=== PATIENT | female | born 1980 | race Caucasian/White ===

== ENCOUNTER 2019-03-01 23:36 | Emergency (ER) | payer SELFPAY ==
[2019-03-01 23:45] VITALS: BP 127/86; PULSE 112; RESP 21; TEMP 37.5; O2SAT 98; BMI 45.7
[2019-03-02] MEDS: ALBUTEROL 2.5 MG/3 ML NEB (ADULT) INH (00:21)
[2019-03-02 00:22] VITALS: PULSE 87; RESP 18; O2SAT 99
--- NOTE | 2019-03-02 00:26 | ED_ITS ---
HPI - SOB/Dyspnea General Chief Complaint: Shortness of Breath/Dyspnea Stated Complaint: throat irritation/cough Time Seen by Provider: 03/02/19 00:03 Source: patient Mode of arrival: ambulatory Limitations: no limitations History of Present Illness Patient is a 38-year-old female presents with shortness of breath and coughing spells. She says that her last year which time she eats or drinks something she started coughing. It happens with water bread wheat thins noodles steak a eggs. Tonight she has had a worsening episode. Every time he takes a deep breath she coughs. She has no rash she does not feel like her throat is closing up. No tongue swelling. denies any fever or chills. MD Complaint: shortness of breath and cough Related Data Previous Rx's Medication Instructions Recorded omeprazole 20 mg PO DAILY #14 cap 03/02/19 Allergies Allergy/AdvReac Type Severity Reaction Status Date / Time levofloxacin [From LEVAQUIN] Allergy Unknown Unverified 03/02/18 12:25 Sulfa (Sulfonamide Allergy Unknown Unverified 03/02/18 12:25 Antibiotics) Review of Systems Review of Systems ROS Unobtainable: All systems reviewed & are unremarkable except as noted in HPI and below Constitutional Denies chills, Denies fever(s), Denies lethargy and Denies weakness Eyes Denies change in vision, Denies eye discharge, Denies irritation and Denies loss of vision ENT Ears, Nose, Mouth, and Throat: Denies change in voice, Denies neck pain and Denies sore throat Cardiovascular Denies chest pain, Denies irregular heart rhythm, Denies lightheadedness, Denies palpitations and Denies orthopnea Respiratory Reports chest congestion, Reports cough, Denies excessive phlegm production and Denies pain on inspiration Gastrointestinal Gastrointestinal: Denies abdominal pain, Denies change in bowel habits, Denies diarrhea, Denies nausea and Denies vomiting Genitourinary Denies hematuria, Denies flank pain, Denies urinary incontinence and Denies urinary urgency Musculoskeletal Denies neck pain Integumentary/Breasts Denies pruritus, Denies erythema, Denies rash and Denies wounds Neurologic Denies confusion, Denies loss of vision and Denies weakness Psychiatric Denies anxiety, Denies confusion, Denies depression, Denies homicidal ideation and Denies suicidal ideation Endocrine Denies palpitations [facility] Medical History Asthma (Acute) Surgical History Hx of tubal ligation (Acute) Family History Mother Age: 58 Diabetes mellitus Sister Age: 38 Abnormal thyroid function test Social History Smoking Status: Never smoker Family History Mother Age: 58 Diabetes mellitus Sister Age: 38 Abnormal thyroid function test Social History Smoking Status: Never smoker Exam Initial Vital Signs Initial Vital Signs: Vital Signs Temperature 99.5 F 03/01/19 23:45 Pulse Rate 112 H 03/01/19 23:45 Respiratory Rate 21 03/01/19 23:45 Blood Pressure 127/86 03/01/19 23:45 Pulse Oximetry 98 03/01/19 23:45 GENERAL: Alert overweight female no acute distress HEENT: Head atraumatic,EOMI, pupils reactive, CARDIOVASCULAR: Regular rate and rhythm without murmurs, rubs or gallops. RESPIRATORY: Breath sounds equal bilaterally, no wheezes rales or rhonchi. Coughing with deep breath. coughing while speaking ABDOMEN: Soft, nontender. Normoactive bowel sounds all 4 quadrants. No guarding or rebound. EXTREMITIES: Normal range of motion, no clubbing or edema. Neurovascularly intact NEUROLOGICAL: Alert and oriented x4.Normal gait and speech. SKIN: Warm, dry, no laceration, no petechiae, no rashes or lesions. Course Orders Ordered: Discontinued Medications Albuterol (Ventolin) 2.5 mg INH NOW ONE Stop: 03/02/19 00:21 Last Admin: 03/02/19 00:21 Dose: 2.5 mg Albuterol (Ventolin Hfa Prepack) 1 box MISC SEEINSTR ONE Stop: 03/02/19 00:40 Last Admin: 03/02/19 00:41 Dose: 1 box Vital Signs - 8 hr 03/01/19 23:45 03/02/19 00:22 03/02/19 01:53 Temperature 99.5 F Pulse Rate 112 H 87 84 Respiratory Rate 21 18 14 Blood Pressure 127/86 138/82 Pulse Oximetry 98 99 96 MDM - SOB/Dyspnea MDM Narrative Medical decision making narrative: Patient's coughing improved significantly with albuterol. She was given a spacer an inhaler. Her symptoms have been ongoing for about a year she has had a swallow study done. Happens with foods and liquids. She actually seems to have reactive airway disease. Recommended outpatient follow-up. Also possible acid reflux. will give omeprazole Discharge Plan Departure Patient Disposition: Home Clinical Impression: Chronic cough Discharge Date/Time: 03/02/19 01:55 Interventions: ED Discharge Assessment Last Done: 03/02/19 01:53 Instructions: DI for Cough -- Adult Activity Restrictions/Additional Instructions: *You have been diagnosed with chronic cough *What to do: At this time I recommend allergy testing, continue to work with [facility] PCP in regards to further work up *Continue to take medications as directed Albuterol 1-2 puffs every 4 hours if needed for coughing or shortness of breath Omeprazole 20 mg once a day 30 minutes before dinnertime or before bed *Follow up with your primary care provider in 2-3 days *Return to ER if you should have increasing shortness of breath, coughing not improve or any new, worsening or concerning symptoms Prescriptions: New omeprazole 20 mg capsule,delayed release(DR/EC) 20 mg PO DAILY Qty: 14 RF: 0 Referrals[facility] [Provider Group] [facility] [Provider Group] [facility] [Provider Group] Jonh Giordano MD [Primary Care Provider] -
[2019-03-02] MEDS: ALBUTEROL HFA PREPACK 1 BOX MISC (00:41)
[2019-03-02 01:53] VITALS: BP 138/82; PULSE 84; RESP 14; O2SAT 96
== END 2019-03-02 01:55 | disposition home or self-care (01) ==
PROVIDERS: Emergency Provider Emergency Medicine; PCP Family Medicine
DX: R05 Cough (principal); R06.02 Shortness of breath
CPT/HCPCS: 94150; 94640; 99282; 99283; J7613

== ENCOUNTER 2019-04-12 21:25 | Emergency (ER) | payer SELFPAY ==
[2019-04-12 21:31] VITALS: BP 130/76; PULSE 103; RESP 15; TEMP 37; O2SAT 97; BMI 44.8
== END 2019-04-12 22:22 | disposition left against medical advice (07) ==
PROVIDERS: Emergency Provider Emergency Medicine; PCP Family Medicine
DX: Z53.21 Procedure and treatment not carried out due to patient leaving prior to being seen by health care provider (principal)
CPT/HCPCS: 99282

== ENCOUNTER 2019-06-17 09:30 | Emergency (ER) | payer SELFPAY ==
[2019-06-17 10:30] VITALS: BP 142/78; PULSE 112; RESP 16; TEMP 36.4; O2SAT 99
[2019-06-17] MEDS: TET,DIPH,PERTUSS(ACELL),VAC/PF 0.5 ML SYRINGE IM (10:34)
--- NOTE | 2019-06-17 11:06 | ED.WOUNDLAC ---
HPI - Wound/Laceration <CORNELIA Dsouza - Last Filed: 06/17/19 21:54> General Chief Complaint: Wound/Laceration Stated Complaint: CUT LEFT ARM ON GLASS Time Seen by Provider: 06/17/19 11:08 Source: patient and family Mode of arrival: ambulatory Limitations: no limitations History of Present Illness HPI narrative: This is a 38 yo female, nonsmoker, who presents with family member with laceration to the medial aspect of right lower arm that she sustained from broken glass window at around 9:00 a.m. today. She tried to get her 's attention by pounding on window and that broke. She is unsure of last tetanus immunization. There is no active bleeding and she had put direct pressure for the last hour or so. She reports mild numbness to right hand, she denies foreign body sensation unaffected side. Her dominant hand is right. 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 Related Data Previous Rx's Medication Instructions Recorded omeprazole 20 mg PO DAILY #14 cap 03/02/19 Allergies Allergy/AdvReac Type Severity Reaction Status Date / Time levofloxacin [From LEVAQUIN] Allergy Unknown Verified 04/12/19 21:31 Sulfa (Sulfonamide Allergy Unknown Verified 04/12/19 21:31 Antibiotics) Review of Systems <CORNELIA Dsouza Last Filed: 06/17/19 21:54> Review of Systems General: Denies fever, chills, fatigue, malaise, sweats. HEENT: Denies sinus pain, ear pain, sore throat, difficulty swallowing, dizziness. Respiratory: Denies dyspnea, cough, wheezing, hemoptysis, sputum. Cardiovascular: Denies chest pain, palpitations, orthopnea, edema. Gastrointestinal: Denies nausea, vomiting, abdominal pain, diarrhea, constipation, melena. : Denies dysuria, frequency, incontinence, hematuria, urinary retention. Musculoskeletal: Denies weakness, joint pain or bony pain. Skin: See HPI Neurologic: Mild numbness to R hand. Denies weakness, headache, change in speech, confusion, seizures, incoordination. Psychiatric: No concerning psychosocial issues. 12-point review of systems is negative except for those stated above. PFSH <CORNELIA Dsouza - Last Filed: 06/17/19 21:54> Medical History (Updated 06/17/19 @ 12:05 by CORNELIA Dsouza) Asthma (Acute) Surgical History (Updated 06/17/19 @ 21:40 by CORNELIA Dsouza) Hx of tubal ligation (Acute) History of (Chronic) Family History Mother Age: 58 Diabetes mellitus Sister Age: 38 Abnormal thyroid function test Social History Smoking Status: Never smoker Family History Mother Age: 58 Diabetes mellitus Sister Age: 38 Abnormal thyroid function test Social History Smoking Status: Never smoker Exam <CORNELIA Dsouza - Last Filed: 06/17/19 21:54> Narrative Exam Narrative: GEN: Alert, oriented x 3, well appearing and nourished, and in no acute distress. Head: Normal cephalic, atraumatic. No scalp or temporal tenderness, palpable mass or rash. EYES: Pupils are equal, round, and reactive to light and accommodation. Extraocular muscles are intact bilaterally. There is no subconjunctival hemorrhage, exudate and sclera non-icteric. ENT: Nose without bleeding, purulent discharge, septal hematoma or deviation. Mucous membrane moist, no mucosal lesion. Airway patent. Neck: Trachea in midline. No JVD, non-tender without lymphadenopathy. No masses or thyroid megaly. Supple, non-tender and meningeal signs. CARDIAC: No peripheral edema, cyanosis or pallor. Capillary refill is less than 2 seconds. No carotid bruits. RESPIRATORY: No cough, wheezes, rales, or rhonchi. No stridor, respiratory distress, increase work of breathing, or accessary muscle used. ABD: Abdomen soft, nontender and non-distended. EXT: Full painless ROM of all extremities with no loss of sensation, strength, effusion or edema. SKIN: 3 cm linear laceration to medial lower R arm. Warm, dry, normal color for patient. No erythema, lesions or rash. BACK: Nontender without deformity or crepitance. No flank tenderness. NEUROLOGICAL: Alert and oriented to place, time and person. Sensation and motor function intact bilaterally. No facial droops, dysphasia. PSYCHIATRIC: Good judgement and reason, without hallucinations, abnormal affect or abnormal behaviors during the examination. Patient is not suicidal. Initial Vital Signs Initial Vital Signs: Vital Signs Temperature 97.6 F 06/17/19 10:30 Pulse Rate 112 H 06/17/19 10:30 Respiratory Rate 16 06/17/19 10:30 Blood Pressure 142/78 H 06/17/19 10:30 Pulse Oximetry 99 06/17/19 10:30 <Denae Baltazar DO - Last Filed: 06/22/19 07:50> Initial Vital Signs Initial Vital Signs: Vital Signs Temperature 97.6 F 06/17/19 10:30 Pulse Rate 112 H 06/17/19 10:30 Respiratory Rate 16 06/17/19 10:30 Blood Pressure 142/78 H 06/17/19 10:30 Pulse Oximetry 99 06/17/19 10:30 Procedures <CORNELIA Dsouza - Last Filed: 06/17/19 21:54> Laceration Repair Laceration 1: Site: upper extremity (medial lower arm) Side (If applicable): right Size (cm): 3 Description: linear Depth: simple, single layer Local Anesthetic: lidocaine 1% and with bicarb Amount of anesthesia used (mL): 4 Pre-repair: wound explored and irrigated extensively Skin layer closed with: nylon Size (cm): 5-0 Number of sutures: 8 Technique: simple, interrupted Course <CORNELIA Dsouza - Last Filed: 06/17/19 21:54> Orders Ordered: Discontinued Medications Diphtheria/Tetanus/Acell Pertussis (Adacel) 0.5 ml IM .ONCE ONE Stop: 06/17/19 10:28 Last Admin: 06/17/19 10:34 Dose: 0.5 ml Vital Signs - 8 hr 06/17/19 10:30 Temperature 97.6 F Pulse Rate 112 H Respiratory Rate 16 Blood Pressure 142/78 H Pulse Oximetry 99 <Denae Baltazar DO - Last Filed: 06/22/19 07:50> Orders Ordered: Discontinued Medications Diphtheria/Tetanus/Acell Pertussis (Adacel) 0.5 ml IM .ONCE ONE Stop: 06/17/19 10:28 Last Admin: 06/17/19 10:34 Dose: 0.5 ml Vital Signs - 8 hr 06/17/19 10:30 Temperature 97.6 F Pulse Rate 112 H Respiratory Rate 16 Blood Pressure 142/78 H Pulse Oximetry 99 [facility] - Wound/Laceration <Burt CORNELIA Alvarado - Last Filed: 06/17/19 21:54> Differential Diagnosis Differential diagnosis: Likely laceration Medical Records Attestation: I reviewed the patient's medical records. [facility] Narrative Medical decision making narrative: This is a 38-year-old female with 3 cm laceration on right medial lower arm. No foreign body was seen or felt during exam and patient did not report foreign body sensation. X-ray was deferred and patient agrees with the plan. The laceration has been irrigated with copious amount of normal saline after locally anesthetized with buffered lidocaine 1% without epi. The laceration has been repaired with 8 interrupted simple suture with nylons 5.0. The patient tolerated the procedure well. The laceration repair site was dressed by nursing staff. Wound care and signs and symptoms for infection were discussed with patient. Suture removal within 7 days. Patient advised to return to ED if any worsening or concerning symptoms and signs and symptoms for infection. Patient family agree with the plan of care and treatment. No further questions were expressed by patient or family member. Tetanus immunization has been updated. Discharge Plan Departure Patient Disposition: Home Clinical Impression: Laceration Discharge Date/Time: 06/17/19 12:24 Interventions: ED Discharge Assessment Last Done: 06/17/19 12:33 Instructions: DI for Laceration Repair Activity Restrictions/Additional Instructions: Please keep your wound clean and dry for the next 24 hours. after 24 hours, you could remove the dressing and wash with soap and water gentle, patch dry with clean paper towel. Please continue with wound care with [id number] antibiotic ointment and cover with Band-Aid. please do not soak her wound in the bathtub, dirty water, ocean and etc. please watch for signs and symptoms for infection such as increasing warmth and redness, pus like discharge, severe pain. if these occur please return to ER for re-evaluation. here suture should be removed in 7 days. follow-up with your primary care doctor for wound recheck as needed and suture removal. please return to ER with any difficulty breathing chest pain thanking like symptoms or any other concerns. Prescriptions: No Action omeprazole 20 mg capsule,delayed release(DR/EC) 20 mg PO DAILY Qty: 14 RF: 0 Referrals: [facility] [Outside] Jonh Giordano MD [Primary Care Provider] - <Denae Baltazar DO - Last Filed: 06/22/19 07:50> Cosign ED Attending Ferature Attestation: I was immediately available in the department for consultation. Documentation has been reviewed. I agree with assessment and plan.
--- NOTE | 2019-06-17 11:10 | PC.NURSE ---
pt states, fell unto broken glass, occured approx 930 am. obtained laceration right forearm, denies other injuries.
[2019-06-17 12:06] VITALS: BP 115/82; PULSE 71; RESP 16; O2SAT 97
--- NOTE | 2019-06-17 12:06 | PC.NURSE ---
bacitracin ointment applied , with non adherent drsg with kerlix. +distal cms intact.
== END 2019-06-17 12:24 | disposition home or self-care (01) ==
PROVIDERS: Emergency Provider Nurse Practitioner Family; PCP Family Medicine
DX: S51.812A Laceration without foreign body of left forearm, initial encounter (principal); W25.XXXA Contact with sharp glass, initial encounter
CPT/HCPCS: 12002; 90471; 99283; 90715

== ENCOUNTER 2019-12-22 00:16 | Emergency (ER) | payer SELFPAY ==
[2019-12-22 00:28] VITALS: BP 138/85; PULSE 81; RESP 16; TEMP 36.9; O2SAT 98; BMI 43.9
[2019-12-22] MEDS: PROPARACAINE 0.5% OPHTH SOL 1 DROPS EYE-LEFT (00:34)
[2019-12-22] MEDS: FLUORESCEIN 1 MG STRIP EYE-BOTH (00:38)
--- NOTE | 2019-12-22 01:26 | ED.EYEPROB ---
HPI - Eye Problem General Chief complaint: Eye Problems Stated complaint: rubbing right eye and it swelled up Time Seen by Provider: 12/22/19 01:26 Source: patient Mode of arrival: Family Vehicle Limitations: no limitations History of Present Illness HPI Narrative: This is a 39-year-old female comes in with complaint of irritation to both eyes and tearing. Patient states her left eye started swelling in the last 12-24 hours. Patient states no decreased vision. She has not had any other discharge other than tearing. She states feels irritated but not painful. No pain with movement. No fevers. No redness. Patient has not had any prior eye issues, she does not wear contacts or glasses. No prior eye surgery. She has not been involved in any activities that would suspicious for foreign body. She has had some mild runny nose but no cold cough or congestion. No fevers. 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 She denies any other current medical issues. Denies any allergies to medications besides sulfa. Related Data Previous Rx's Medication Instructions Recorded omeprazole 20 mg PO DAILY #14 cap 03/02/19 Allergies Allergy/AdvReac Type Severity Reaction Status Date / Time levofloxacin [From LEVAQUIN] Allergy Unknown Verified 04/12/19 21:31 Sulfa (Sulfonamide Allergy Unknown Verified 04/12/19 21:31 Antibiotics) Review of Systems Review of Systems ROS Unobtainable: All systems reviewed & are unremarkable except as noted in HPI and below Patient History Medical History Asthma (Acute) Surgical History History of (Chronic) Hx of tubal ligation (Acute) Social History Smoking Status: Never smoker Smoking Status: Never smoker alcohol intake frequency: holidays/special occasions only Substance Use Type: does not use Exam Narrative Exam Narrative: GEN: well nourished, well appearing female, alert and oriented x 3, patient appears to be in mild distress. HEENT: Atraumatic, pupils are equal round reactive to light, extraocular movements are intact, nares are clear, TMs are clear with no fluid, there is no conjunctival pallor. Throat is clear without any exudates, erythema, tonsillar enlargement or uvular deviation Visual acuity: See chart. General: no globe trauma Eyelids: normal inspection right, on left patient has swelling of the upper eyelid and slightly into the periorbital, no erythema extending, and slight swelling of the lower lid, eyelids everted for exam on right. Conjunctiva/Sclera: Conjunctiva and sclera slightly injected bilat Corneas: normal inspection on right, examined with fluroscein on left. With no uptake over the cornea, patient has some punctate uptake over the sclera throughout. No lacerations noted. EOM: intact, no palsy/entrapment Pupils: PERRL, normal accomadation, pupil normal Anterior Chambers: normal inspection, no hypema Posterior: normal fundoscopic on bilaterally HEART: Regular rate and rhythm without murmur, clicks, rubs. No carotid bruits, pulses are equal in upper and lower extremities LUNGS:Lungs clear to auscultation, no wheezes, rales, crackles, chest moves symmetrically ABD:bowel sounds normal, soft, non-tender, no guarding, rebound, rigidity, no masses noted, no hepatosplenomegaly MSCL: Non-tender, no muscle atrophy, muscles strength 5/5 upper and lower extremities, full range of motion, normal gait NEURO:CN 2-12 intact, sensation normal Initial Vital Signs Initial Vital Signs: Vital Signs Temperature 98.4 F 12/22/19 00:28 Pulse Rate 81 12/22/19 00:28 Respiratory Rate 16 12/22/19 00:28 Blood Pressure 138/85 12/22/19 00:28 Pulse Oximetry 98 12/22/19 00:28 Course Orders Ordered: Discontinued Medications Fluorescein Sodium (Ful-Fatmata) 1 mg EYE-BOTH NOW ONE Stop: 12/22/19 00:36 Last Admin: 12/22/19 00:38 Dose: 1 mg Documented by: HGUBERN Ibuprofen (Advil) 800 mg PO NOW ONE Stop: 12/22/19 01:47 Last Admin: 12/22/19 02:03 Dose: 800 mg Documented by: MMCFARL Polymyxin/Trimethoprim Sulfate (Polytrim Prepack) 1 bottle MISC SEEINSTR ONE Stop: 12/22/19 01:48 Last Admin: 01/31/20 02:04 Dose: 1 bottle Documented by: MMCFARL Proparacaine HCl (Parcaine 0.5% Ophth Angelica) 1 drops EYE-LEFT NOW ONE Stop: 12/22/19 00:28 Last Admin: 12/22/19 00:34 Dose: 1 drop Documented by: CHAU Vital Signs Vital signs: Vital Signs - 8 hr 12/22/19 00:28 12/22/19 02:10 Temperature 98.4 F Pulse Rate 81 79 Respiratory Rate 16 16 Blood Pressure 138/85 131/83 Pulse Oximetry 98 98 MDM - Eye Problem MDM Narrative Medical decision making narrative: Visual acuity is 20/40 in the left eye. On exam she has some scleral uptake but that is punctate or consistent with infection. No signs of foreign body, no corneal abrasions or lacerations. Patient was started on antibiotic drops. Asked to return for re-evaluation if she is not improving in 24 hours to call follow-up with Ophthalmology today. Patient was given a dose of ibuprofen in the department started on polymyxin/trimethoprim eyedrops with a prepack. Discharge Plan Departure Patient Disposition: Home Clinical Impression: Conjunctivitis Qualifiers: Conjunctivitis type: acute Discharge Date/Time: 12/22/19 02:10 Instructions: DI for Conjunctivitis Activity Restrictions/Additional Instructions: Follow-up with ophthalmology tomorrow if you are not having any improvement of your symptoms over the next 24 hours. He can call 1st thing in the morning for an appointment. You may take ibuprofen and/or Tylenol as needed for pain. You may take up to 600 mg of ibuprofen every 6 hours and or 1000 mg of Tylenol every 8 hours as needed. You may use ice or cool compresses to the affected eye 4 times daily Use 1 drop to the affected eye every 3 hours while awake for at least 4 times daily total, continue for 7 days. Return to the ER for fevers greater 100.4 F, rapidly worsening swelling, redness, pain within the eye itself, decreased vision severe headaches, persistent vomiting or other new or concerning symptoms. Prescriptions: No Action omeprazole 20 mg capsule,delayed release(DR/EC) 20 mg PO DAILY Qty: 14 RF: 0 Referrals: Collins Rene MD [Physician] -
[2019-12-22] MEDS: IBUPROFEN 400 MG TABLET 800 MG PO (02:03)
[2019-12-22] MEDS: POLYMY B/TRIMETH OPHTH PREPACK 1 BOTTLE MISC (02:04)
[2019-12-22 02:10] VITALS: BP 131/83; PULSE 79; RESP 16; O2SAT 98
== END 2019-12-22 02:10 | disposition home or self-care (01) ==
PROVIDERS: Emergency Provider Emergency Medicine
DX: H10.33 Unspecified acute conjunctivitis, bilateral (principal)
CPT/HCPCS: 99283

== ENCOUNTER 2021-03-01 18:08 | Emergency (ER) | payer SELFPAY ==
[2021-03-01 18:26] VITALS: BP 137/91; PULSE 100; RESP 24; TEMP 37.3; O2SAT 100; BMI 39.3
--- NOTE | 2021-03-01 19:38 | PC.NURSE ---
1914 Patient name called in lobby, no answer.
--- NOTE | 2021-03-01 19:39 | PC.NURSE ---
Patient still not in lobby.
== END 2021-03-01 19:41 | disposition left against medical advice (07) ==
PROVIDERS: Emergency Provider Emergency Medicine
DX: R21 Rash and other nonspecific skin eruption (principal)
CPT/HCPCS: 99281

== ENCOUNTER 2021-12-04 16:02 | Emergency (ER) | payer OTHER, SELFPAY ==
[2021-12-04 16:11] VITALS: BP 135/77; PULSE 94; RESP 16; TEMP 37.1; O2SAT 100; BMI 42.9
[2021-12-04 16:34] LABS: COVID19 -Nasal RAPID POSITIVE (Negative)
--- NOTE | 2021-12-04 16:38 | ED_ITS ---
HPI - URI/Sore Throat <CORNELIA Suero - Last Filed: 12/04/21 17:21> General Chief Complaint: Upper Respiratory Symptoms Stated Complaint: Runny Nose, Exposure to COVID Time Seen by Provider: 12/04/21 16:38 History of Present Illness HPI Narrative: 41-year-old female presents to the emergency department for COVID testing with symptoms that include a runny nose, congestion, a cough, and fatigue. Patient denies having a fever, she denies shortness of breath, wheezing, difficulty breathing, chest pain, dizziness, nausea, vomiting or diarrhea. Patient has had recent exposures with family members who have tested positive for COVID. She endorses a history of asthma but denies any shortness of breath or wheezing like her asthma. Related Data Previous Rx's Medication Instructions Recorded omeprazole 20 mg capsule,delayed 20 mg PO DAILY #14 cap 03/02/19 release Allergies Allergy/AdvReac Type Severity Reaction Status Date / Time levofloxacin [From LEVAQUIN] Allergy Unknown Verified 03/01/21 18:29 Sulfa (Sulfonamide Allergy Unknown Verified 03/01/21 18:29 Antibiotics) Review of Systems <CORNELIA Suero - Last Filed: 12/04/21 17:21> Review of Systems Narrative: General: denies fever, chills, endorses fatigue Head/Neck: denies headache, neck pain Eyes: denies visual changes, eye pain Cardio: denies chest pain, palpitations Respiratory: denies shortness of breath, endorses having a mild nonproductive cough GI: denies abdominal pain, nausea, vomiting, or diarrhea : denies dysuria, hematuria MSK: denies joint pain, muscle weakness Skin: denies rash, itching Neuro: denies numbness, tingling Patient History <CORNELIA Suero - Last Filed: 12/04/21 17:21> Medical History Asthma Surgical History History of Hx of tubal ligation Family History Mother Age: 61 Diabetes mellitus Sister Age: 41 Abnormal thyroid function test Social History Smoking Status: Never smoker Smoking Status: Never smoker alcohol intake frequency: holidays/special occasions only Substance Use Type: does not use Exam <CORNELIA Suero - Last Filed: 12/04/21 17:21> Narrative Exam Narrative: Independently reviewed vitals signs and nursing notes. General: Awake, alert, nontoxic, no cardiorespiratory distress, afebrile Head/Neck: Atraumatic, neck full range of motion Eyes: EOMI, conjunctiva normal Nose: nares patent, no rhinorrhea Mouth/Throat: moist mucus membranes, no oral lesions Cardio: Regular rate and rhythm, no peripheral edema Respiratory: respirations unlabored without wheezing, stridor, or rales. No retractions. GI: Abdomen soft, nontender, obese MSK: Moves all extremities, neurovascularly intact Skin: Normal capillary refill, no rash Neuro: Normal speech and cognition, normal gait Initial Vital Signs Initial Vital Signs: Vital Signs Temperature 98.7 F 12/04/21 16:11 Pulse Rate 94 H 12/04/21 16:11 Respiratory Rate 16 12/04/21 16:11 Blood Pressure 135/77 12/04/21 16:11 Pulse Oximetry 100 12/04/21 16:11 <Rosio Perez DO - Last Filed: 12/05/21 07:39> Initial Vital Signs Initial Vital Signs: Vital Signs Temperature 98.7 F 12/04/21 16:11 Pulse Rate 94 H 12/04/21 16:11 Respiratory Rate 16 12/04/21 16:11 Blood Pressure 135/77 12/04/21 16:11 Pulse Oximetry 100 12/04/21 16:11 Course <CORNELIA Suero - Last Filed: 12/04/21 17:21> Orders Ordered: ED Orders 12/04/21 16:13 COVID19 -Nasal swab/Pre-Proc Stat Vital Signs Vital signs: Vital Signs - 8 hr 12/04/21 16:11 Temperature 98.7 F Pulse Rate 94 H Respiratory Rate 16 Blood Pressure 135/77 Pulse Oximetry 100 <Rosio Perez DO - Last Filed: 12/05/21 07:39> Orders Ordered: ED Orders 12/04/21 16:13 COVID19 -Nasal swab/Pre-Proc Stat Vital Signs Vital signs: Vital Signs - 8 hr 12/04/21 16:11 Temperature 98.7 F Pulse Rate 94 H Respiratory Rate 16 Blood Pressure 135/77 Pulse Oximetry 100 MDM - URI/Sore Throat <CORNELIA Suero - Last Filed: 12/04/21 17:21> Lab Data Labs: Lab Results 12/04/21 Range/Units 16:13 SARS-CoV-2 (PCR) Positive H (Negative) MDM Narrative Medical decision making narrative: 41-year-old female presents to the emergency department for COVID testing with recent exposures and symptoms that include runny nose, cough, congestion, and fatigue. COVID (+) on day [3] of symptoms without hypoxia, respiratory distress, dehydration, or focal exam to suggest secondary bacterial infection. Discussed CDC guidelines for quarantine, mask wearing, physical distancing, and infection prevention measures such as frequent handwashing. Discussed supportive treatments: Tylenol/Motrin as needed for pain/fever. OTC decongestant medicat ions and/or antihistamines for symptomatic relief. Maintain adequate fluid intake. Follow-up with PCP as directed. Return to clinic/ER instructions discussed for new, not improving, or worsening symptoms. All questions answered. <Rosio Perez DO - Last Filed: 12/05/21 07:39> Lab Data Labs: Lab Results 12/04/21 Range/Units 16:13 SARS-CoV-2 (PCR) Positive H (Negative) Discharge Plan Departure Patient Disposition: Home Clinical Impression: COVID-19 Instructions: DI for COVID-19 (Suspected or Confirmed ) Activity Restrictions/Additional Instructions: *You have tested positive for COVID 19. Please quarantine for 5 days or as long as you have a fever, Wear a mask thereafter. Please try and avoid other people while you still have symptoms because this is very contagious. You may use [id number] decongestants like Sudafed for relief, Mucinex for productive cough, Benadryl for runny nose at night, ibuprofen or Tylenol as needed for fever. Please try and stay hydrated. If you are having difficulty breathing please return to the emergency department. Hope you feel better soon. *What to do: *Please continue to take your regular medications as directed. [ ] New medication prescriptions sent to your pharmacy: [ ] [ ] New medication written as a paper prescription [x ] No new medications given *Please follow up with your primary care provider in 2-3 days, call for an appointment. Let them know you were seen in the Emergency Department and that we ask that you be seen in follow up. We will electronically transmit a record of today's note if your PCP is in our system *If you do not have a primary care provider please contact the [facility] Resource line at [phone]. They will ask some questions about your medical history and help get you set up with a doctor in the community. *Return to Emergency Department if you should have any new, worsening or concerning symptoms, such as [fever greater than 101F, chills, worsening pain, persistent vomiting or other bothersome symptoms] Prescriptions: No Action omeprazole 20 mg capsule,delayed release(DR/EC) 20 mg PO DAILY Qty: 14 0RF <Rosio Perez DO - Last Filed: 12/05/21 07:39> Cosyenni ED Attending Ferature Attestation: I was immediately available in the department for consultation. Documentation has been reviewed.
== END 2021-12-04 17:23 | disposition home or self-care (01) ==
PROVIDERS: Emergency Medicine; Emergency Provider Nurse Practitioner Critical Care Medicine
DX: U07.1 COVID-19 (principal)
CPT/HCPCS: 87635; 99281; C9803

== ENCOUNTER 2021-12-30 13:48 | Emergency (ER) | payer SELFPAY ==
[2021-12-30 14:06] VITALS: BP 130/80; PULSE 103; RESP 20; TEMP 36.8; O2SAT 99; BMI 43.0
== END 2021-12-30 15:10 | disposition left against medical advice (07) ==
PROVIDERS: Emergency Provider Emergency Medicine
DX: J02.9 Acute pharyngitis, unspecified (principal)
CPT/HCPCS: 99281

== ENCOUNTER 2022-01-02 10:09 | Emergency (ER) | payer OTHER, SELFPAY ==
[2022-01-02 10:20] VITALS: BP 140/85; PULSE 98; RESP 15; TEMP 36.7; O2SAT 99
--- NOTE | 2022-01-02 12:30 | DI.RAD.S_ITS ---
PROCEDURE: XR CHEST 1V INDICATIONS: Cough TECHNIQUE: One view of the chest was acquired. COMPARISON: None. FINDINGS: Surgical changes and devices: None. Lungs and pleura: Lungs are clear. No pleural effusions or pneumothorax. Mediastinum: Mediastinal contours appear normal. Heart size is normal. Bones and chest wall: No suspicious bony lesions. Overlying soft tissues appear unremarkable. IMPRESSION: No acute cardiopulmonary disease process. Dictated by: Eliza Harris MD, PhD on 01/02/2022 at 12:53 Approved by: Eliza Harris MD, PhD on 01/02/2022 at 12:53
--- NOTE | 2022-01-02 12:42 | ED.URI ---
HPI - URI/Sore Throat <Clark Malloy PA-C - Last Filed: 01/02/22 20:05> General Chief Complaint: Upper Respiratory Symptoms Stated Complaint: scratchy thoat/airway cutting out Time Seen by Provider: 01/02/22 12:00 Source: patient Mode of arrival: Ambulatory History of Present Illness HPI Narrative: Patient is a 41-year-old female with history of asthma presenting to the emergency department today for an evaluation cough and throat irritation. Patient states she tested positive for COVID-19 on 12/04/2021 but has since stents did negative. She states that she went through a 2 week quarantine period. She states that since tested positive for COVID she has experienced a reactive cough and occasional intermittent chest pain with cough. Additionally, she reports a ?scratchy sensation? in her throat. She presents today complaining of continuing throat irritation and the sensation that her ?throat is closing up?. She states that she has a history asthma and is concerned that she may be experiencing an exacerbation. Patient denies fever, chills, shortness of breath, nausea, vomiting, diarrhea, abdominal pain, dysuria, hematuria, diaphoresis, syncope, changes in vision, or any other concerning symptoms. No further concerns reports at this time. Related Data Previous Rx's Medication Instructions Recorded omeprazole 20 mg capsule,delayed 20 mg PO DAILY #14 cap 03/02/19 release prednisone 20 mg tablet 40 mg PO DAILY #8 tab 01/02/22 Allergies Allergy/AdvReac Type Severity Reaction Status Date / Time levofloxacin [From LEVAQUIN] Allergy Unknown Verified 01/02/22 10:29 Sulfa (Sulfonamide Allergy Unknown Verified 01/02/22 10:29 Antibiotics) Review of Systems <Clark Malloy PA-C - Last Filed: 01/02/22 20:05> Constitutional Constitutional: Denies chills, Denies fatigue, Denies fever(s), Denies frequent falls, Denies lethargy and Denies weakness Eyes Eyes: Denies loss of vision ENT Ears, Nose, Mouth, and Throat: Denies change in voice, Denies dizziness, Denies neck pain, Denies throat swelling and Reports other (Scratchy throughout) Cardiovascular Cardiovascular: Denies chest pain, Denies irregular heart rhythm, Denies lightheadedness, Denies palpitations, Denies dyspnea, Denies dyspnea on exertion and Denies orthopnea Respiratory Respiratory: Reports cough, Denies dyspnea, Denies dyspnea on exertion, Denies wheezing and Reports other (Chest pain with cough) Gastrointestinal Gastrointestinal: Denies abdominal pain, Denies change in bowel habits, Denies diarrhea, Denies nausea and Denies vomiting Genitourinary Genitourinary: Denies hematuria, Denies flank pain, Denies urinary incontinence and Denies urinary urgency Musculoskeletal Musculoskeletal: Denies back pain, Denies muscle weakness, Denies neck pain, Denies numbness and Denies tingling Integumentary/Breasts Skin/Breast: Denies pruritus, Denies erythema, Denies rash and Denies wounds Neurologic Neurologic: Denies behavioral changes, Denies confusion, Denies dizziness, Denies frequent falls, Denies loss of vision, Denies numbness, Denies tingling and Denies weakness Psychiatric Psychiatric: Denies behavioral changes and Denies confusion Endocrine Endocrine: Denies fatigue and Denies palpitations Allergic/Immunologic Allergic/Immunologic: Denies throat swelling and Denies wheezing Patient History <Clark Malloy PA-C - Last Filed: 01/02/22 20:05> Medical History (Updated 01/02/22 @ 13:20 by Clark Malloy PA-C) Asthma Surgical History History of Hx of tubal ligation Family History Mother Age: 61 Diabetes mellitus Sister Age: 41 Abnormal thyroid function test Social History Smoking Status: Never smoker Smoking Status: Never smoker alcohol intake frequency: holidays/special occasions only Substance Use Type: does not use Exam <Clark Malloy PA-C - Last Filed: 01/02/22 20:05> Narrative Exam Narrative: GENERAL: 41 year old patient appears stated age. Well-developed patient, in no acute distress. HEAD: Atraumatic. Normocephalic. EYES: Pupils equal round and reactive. Extraocular motions intact. No scleral icterus. No injection or drainage. ENT: Nose without bleeding, purulent drainage. Throat without erythema, tonsillar hypertrophy or exudate. Airway patent. No excessive pharyngeal swelling or erythema. Uvula midline. No evidence of abscess formation. Mallampati 2. NECK: Trachea midline. Non tender CARDIOVASCULAR: Regular rate and rhythm without murmurs, gallops, or rubs. RESPIRATORY: Clear to auscultation. Breath sounds equal bilaterally. No wheezes, rales, or rhonchi. Actively coughing on exam GASTROINTESTINAL: Abdomen soft, non-tender, nondistended. EXTREMITIES: No edema or joint tenderness. BACK: Nontender without deformity or crepitance. No flank tenderness. NEURO: AOx3. SKIN: No rash or erythema of visible areas Initial Vital Signs Initial Vital Signs: Vital Signs Temperature 98.1 F 01/02/22 10:20 Pulse Rate 98 H 01/02/22 10:20 Respiratory Rate 15 01/02/22 10:20 Blood Pressure 140/85 01/02/22 10:20 Pulse Oximetry 99 01/02/22 10:20 <Denae Baltazar DO - Last Filed: 01/03/22 06:58> Initial Vital Signs Initial Vital Signs: Vital Signs Temperature 98.1 F 01/02/22 10:20 Pulse Rate 98 H 01/02/22 10:20 Respiratory Rate 15 01/02/22 10:20 Blood Pressure 140/85 01/02/22 10:20 Pulse Oximetry 99 01/02/22 10:20 Course <Clark Malloy PA-C - Last Filed: 01/02/22 20:05> Course Course Narrative: Chest x-ray obtained. Albuterol 2 puffs, 40 mg p.o. prednisone, 100 mg Robitussin administered. Patient provided albuterol inhaler to go home with. Patient notified of chest x-ray results and informed that no acute abnormality was identified. Orders Ordered: Discontinued Medications Albuterol (Albuterol Hfa Prepack) 1 box MISC NOW ONE Stop: 01/02/22 13:16 Last Admin: 01/02/22 13:14 Dose: 1 box Documented by: MIREYA Guaifenesin (Guaifenesin Solution 100 Mg/5 Ml Udc) 100 mg PO NOW ONE Stop: 01/02/22 12:31 Last Admin: 01/02/22 12:58 Dose: 100 mg Documented by: MIREYA Prednisone (Prednisone 20 Mg Tablet) 40 mg PO NOW ONE Stop: 01/02/22 12:31 Last Admin: 01/02/22 12:57 Dose: 40 mg Documented by: MIREYA Vital Signs Vital signs: Vital Signs - 8 hr 01/02/22 13:20 Pulse Oximetry 96 <Denae Baltazar DO - Last Filed: 01/03/22 06:58> Orders Ordered: Discontinued Medications Albuterol (Albuterol Hfa Prepack) 1 box MISC NOW ONE Stop: 01/02/22 13:16 Last Admin: 01/02/22 13:14 Dose: 1 box Documented by: MIREYA Guaifenesin (Guaifenesin Solution 100 Mg/5 Ml Udc) 100 mg PO NOW ONE Stop: 01/02/22 12:31 Last Admin: 01/02/22 12:58 Dose: 100 mg Documented by: MIREYA Prednisone (Prednisone 20 Mg Tablet) 40 mg PO NOW ONE Stop: 01/02/22 12:31 Last Admin: 01/02/22 12:57 Dose: 40 mg Documented by: MIREYA Vital Signs Vital signs: Vital Signs - 8 hr 01/02/22 13:20 Pulse Oximetry 96 MDM - URI/Sore Throat <Clark Malloy PA-C - Last Filed: 01/02/22 20:05> MDM Narrative Medical decision making narrative: To consider asthma exacerbation versus viral upper respiratory infection versus pneumonia versus atelectasis versus viral pharyngitis versus strep pharyngitis. Overall, physical examination and x-ray imaging obtained in the emergency department today were reassuring. Discussed x-ray results with patient informed her that no acute abnormality was identified. Patient states she feels comfortable being discharged home at this time now that she has received an albuterol inhaler. Strict return precautions were discussed with the patient prior to discharge. I urged the patient to follow up with primary care for further evaluation and management of her asthma. Patient expresses understanding and agrees to plan. Discharge Plan Departure Patient Disposition: Home Clinical Impression: Asthma exacerbation, Pharyngitis Instructions: DI for Asthma -- Adult Activity Restrictions/Additional Instructions: *You have been diagnosed with asthma exacerbation, pharyngitis *What to do: *Please continue to take your regular medications as directed. [X] New medication prescriptions sent to your pharmacy: [facility] - Prednisone [ ] New medication written as a paper prescription [ ] No new medications given Chest x-ray performed in the emergency department today did not show signs of acute abnormality. Please use the inhaler provided to you in the emergency department today as needed. I have prescribed a short course of steroids to her preferred pharmacy, please take these medications daily for the next 4 days. There due to establish primary care as soon as possible so that he can have consistent management of your asthma. Please do not hesitate to return to the emergency department if you experience worsening shortness of breath, cough, throat swelling, or any other concerning symptoms. *Please follow up with your primary care provider in 2-3 days, call for an appointment. Let them know you were seen in the Emergency Department and that we ask that you be seen in follow up. We will electronically transmit a record of today's note if your PCP is in our system *If you do not have a primary care provider please contact the [facility] Resource line at [phone]. They will ask some questions about your medical history and help get you set up with a doctor in the community. *Return to Emergency Department if you should have any new, worsening or concerning symptoms, such as fever greater than 101 F, shaking chills, worsening pain, persistent vomiting or other bothersome symptoms. Prescriptions: New prednisone 20 mg tablet 40 mg PO DAILY Qty: 8 0RF No Action omeprazole 20 mg capsule,delayed release(DR/EC) 20 mg PO DAILY Qty: 14 0RF <Denae Baltazar, - Last Filed: 01/03/22 06:58> Cosyenni ED Attending Georgie Attestation: I was immediately available in the department for consultation. Documentation has been reviewed. I agree with assessment and plan.
[2022-01-02] MEDS: predniSONE 20 MG TABLET 40 MG PO (12:57)
[2022-01-02] MEDS: guaiFENesin Solution 100 MG/5 ML UDC PO (12:58)
[2022-01-02] MEDS: ALBUTEROL HFA PREPACK 1 BOX MISC (13:14)
[2022-01-02 13:20] VITALS: O2SAT 96
== END 2022-01-02 13:45 | disposition home or self-care (01) ==
PROVIDERS: Emergency Provider Physician Assistant
DX: J45.901 Unspecified asthma with (acute) exacerbation (principal); J02.9 Acute pharyngitis, unspecified; Z86.16 Personal history of COVID-19
CPT/HCPCS: 71045; 99283; A9270

== ENCOUNTER 2022-01-30 16:06 | Emergency (ER) | payer SELFPAY ==
[2022-01-30 16:31] VITALS: BP 133/90; PULSE 100; RESP 18; TEMP 36.6; O2SAT 99; BMI 44.8
--- NOTE | 2022-01-30 16:44 | ED.SOB ---
HPI - SOB/Dyspnea <Tommie Bo PA-C - Last Filed: 01/30/22 17:28> General Chief Complaint: Upper Respiratory Symptoms Stated Complaint: COUGH SOB Time Seen by Provider: 01/30/22 16:44 Source: patient Mode of arrival: Ambulatory History of Present Illness HPI Narrative: This is a 41-year-old female presents to the emergency department due to a few week history a ?sore throat? with a productive cough. Patient states she was recently seen in the emergency department given an albuterol inhaler as well as a short dose of prednisone without significant relief of her symptoms. Patient is primarily concerned of a sore throat and mucous production this feels like her throat. Denies any fevers, nausea, vomiting, chest pain, or any other concerning signs or symptoms. Related Data Previous Rx's Medication Instructions Recorded omeprazole 20 mg capsule,delayed 20 mg PO DAILY #14 cap 03/02/19 release penicillin V potassium 500 mg 500 mg PO TID 10 Days #30 tab 01/30/22 tablet Allergies Allergy/AdvReac Type Severity Reaction Status Date / Time levofloxacin [From LEVAQUIN] Allergy Unknown Verified 01/02/22 10:29 Sulfa (Sulfonamide Allergy Unknown Verified 01/02/22 10:29 Antibiotics) Review of Systems <Tommie Bo PA-C - Last Filed: 01/30/22 17:28> Review of Systems Narrative: See HPI. Patient History <Tommie Bo PA-C - Last Filed: 01/30/22 17:28> Medical History (Updated 01/30/22 @ 17:09 by Tommie Bo PA-C) Asthma Surgical History History of Hx of tubal ligation Family History Mother Age: 61 Diabetes mellitus Sister Age: 41 Abnormal thyroid function test Social History Smoking Status: Never smoker Smoking Status: Never smoker alcohol intake frequency: holidays/special occasions only Substance Use Type: does not use Exam <Tommie Bo PA-C - Last Filed: 01/30/22 17:28> Narrative Exam Narrative: GENERAL: Well-developed patient, in no acute distress. HEAD: Atraumatic. Normocephalic. EYES: Pupils equal round and reactive. Extraocular motions intact. No scleral icterus. No injection or drainage. ENT: Erythematous posterior oropharynx with tonsillar exudate on the left tonsil. Uvula is midline. NECK: Trachea midline. Non tender CARDIOVASCULAR: Regular rate and rhythm without murmurs, gallops, or rubs. RESPIRATORY: Clear to auscultation. Breath sounds equal bilaterally. No wheezes, rales, or rhonchi. Actively coughing on exam GASTROINTESTINAL: Abdomen soft, non-tender, nondistended. EXTREMITIES: No edema or joint tenderness. BACK: Nontender without deformity or crepitance. No flank tenderness. NEURO: AOx3. SKIN: No rash or erythema of visible areas Initial Vital Signs Initial Vital Signs: Vital Signs Temperature 98 F 01/30/22 16:31 Pulse Rate 100 H 01/30/22 16:31 Respiratory Rate 18 01/30/22 16:31 Blood Pressure 133/90 01/30/22 16:31 Pulse Oximetry 99 01/30/22 16:31 <DO Jasbir Stephens Last Filed: 02/02/22 15:48> Initial Vital Signs Initial Vital Signs: Vital Signs Temperature 98 F 01/30/22 16:31 Pulse Rate 100 H 01/30/22 16:31 Respiratory Rate 18 01/30/22 16:31 Blood Pressure 133/90 01/30/22 16:31 Pulse Oximetry 99 01/30/22 16:31 Course <YULISSA Abreu Last Filed: 01/30/22 17:28> Vital Signs Vital signs: Vital Signs - 8 hr 01/30/22 16:31 01/30/22 17:26 Temperature 98 F 98.2 F Pulse Rate 100 H 94 H Respiratory Rate 18 24 Blood Pressure 133/90 138/90 Pulse Oximetry 99 99 <DO Jasbir Stephens Last Filed: 02/02/22 15:48> Vital Signs Vital signs: Vital Signs - 8 hr 01/30/22 16:31 01/30/22 17:26 Temperature 98 F 98.2 F Pulse Rate 100 H 94 H Respiratory Rate 18 24 Blood Pressure 133/90 138/90 Pulse Oximetry 99 99 MDM - SOB/Dyspnea <YULISSA Abreu Last Filed: 01/30/22 17:28> MDM Narrative Medical decision making narrative: This is a 41-year-old female presenting to the emergency department due to a continued sore throat. On exam patient presented with significant or pharyngeal erythema as well as exudate. Will treat empirically for bacterial pharyngitis. Lung exam was unremarkable low concern for pneumonia or asthma exacerbation. Discharge Plan Departure Patient Disposition: Home Clinical Impression: Acute pharyngitis Instructions: DI for Strep Throat Activity Restrictions/Additional Instructions: Thank you for coming into our emergency department your lungs sounded very good and not suspect any kind of pneumonia at this time. On exam throat did appear to have some kind of infection. We will treat empirically for strep throat. Please continue taking Mucinex to help with the mucus production. The antibiotic should help with your symptoms as well. I hope you feel better soon. Prescriptions: New penicillin V potassium 500 mg tablet 500 mg PO TID 10 Days Qty: 30 0RF No Action omeprazole 20 mg capsule,delayed release(DR/EC) 20 mg PO DAILY Qty: 14 0RF Stand Alone Forms: Work Release Note <Denae Baltazar DO - Last Filed: 02/02/22 15:48> Cosign ED Attending Cosignature Attestation: I was immediately available in the department for consultation. Documentation has been reviewed. I agree with assessment and plan.
[2022-01-30 17:26] VITALS: BP 138/90; PULSE 94; RESP 24; TEMP 36.8; O2SAT 99
== END 2022-01-30 17:27 | disposition home or self-care (01) ==
PROVIDERS: Emergency Provider Physician Assistant Medical
DX: J02.9 Acute pharyngitis, unspecified (principal); R05.9 Cough, unspecified
CPT/HCPCS: 99281

== ENCOUNTER 2022-04-25 16:59 | Emergency (ER) | payer OTHER, SELFPAY ==
[2022-04-25 17:13] VITALS: BP 122/83; PULSE 84; RESP 18; TEMP 36.6; O2SAT 98; BMI 42.0
--- NOTE | 2022-04-25 18:59 | ED.FALL ---
HPI - Fall General Chief Complaint: Fall Stated Complaint: FELL AT WORK SAFEWAY Time Seen by Provider: 04/25/22 18:59 Source: family Mode of arrival: Ambulatory History of Present Illness HPI Narrative: 41-year-old female nonsmoker with noncontributory medical history presents with a chief complaint of an accidental fall while at work yesterday. She states that she slipped on a wet floor and fell forward striking her chest on the ground. Denies any headache or neck pain. She denies any head injury, blurred vision or trouble with speech. She has anterior chest wall pain that she states is worse with a deep breath and improves with rest. She is not short of breath and denies any cough or bloody sputum. She has no nausea, vomiting or diarrhea. She denies any extremity pain or injury such as shoulders, elbows, wrists, hips, knees or ankles. Related Data Previous Rx's Medication Instructions Recorded omeprazole 20 mg capsule,delayed 20 mg PO DAILY #14 cap 03/02/19 release Allergies Allergy/AdvReac Type Severity Reaction Status Date / Time levofloxacin [From LEVAQUIN] Allergy Unknown Verified 03/06/22 08:12 Sulfa (Sulfonamide Allergy Unknown Verified 03/06/22 08:12 Antibiotics) Review of Systems Review of Systems Narrative: GENERAL: Denies chills, fatigue, malaise, fever, sweats. HEENT: Denies sinus pain, ear pain, sore throat, difficulty swallowing, dizziness. RESPIRATORY: See HPI. CARDIOVASCULAR: See HPI GASTROINTESTINAL: Denies nausea, vomiting, abdominal pain, diarrhea, constipation, melena. : Denies dysuria, frequency, incontinence, hematuria, urinary retention. MUSCULOSKELETAL: denies weakness, joint pain, or bony pain SKIN: Denies rash, skin lesions, or other NEUROLOGIC: Denies weakness, headache, numbness, change in speech, confusion, seizures, incoordination. PSYCHIATRIC: No concerning psychosocial issues. 12 point review of systems is negative except for those stated above Patient History Medical History (Updated 04/25/22 @ 20:05 by Danial Macedo DO) Asthma Surgical History History of Hx of tubal ligation Family History Mother Age: 61 Diabetes mellitus Sister Age: 41 Abnormal thyroid function test Social History Smoking Status: Never smoker Smoking Status: Never smoker alcohol intake frequency: holidays/special occasions only Substance Use Type: does not use Exam Narrative Exam Narrative: GENERAL: [41] year old patient appears stated age. Well-developed patient, in mild distress. GCS 15 HEAD: Atraumatic. Normocephalic. EYES: Pupils equal round and reactive. Extraocular motions intact. No scleral icterus. No injection or drainage. ENT: Nose without bleeding, purulent drainage. Throat without erythema, tonsillar hypertrophy or exudate. Airway patent. NECK: Trachea midline. Non tender CARDIOVASCULAR: Regular rate and rhythm without murmurs, gallops, or rubs. Anterior chest wall tender to palpation, no crepitance or obvious external manifestation of injury RESPIRATORY: Clear to auscultation. Breath sounds equal bilaterally. No wheezes, rales, or rhonchi. GASTROINTESTINAL: Abdomen soft, non-tender, nondistended. EXTREMITIES: No edema or joint tenderness. BACK: Nontender without deformity or crepitance. No flank tenderness. NEURO: AOx3. SKIN: No rash or erythema of visible areas Initial Vital Signs Initial Vital Signs: Vital Signs Temperature 97.8 F 04/25/22 17:13 Pulse Rate 84 04/25/22 17:13 Respiratory Rate 18 04/25/22 17:13 Blood Pressure 122/83 04/25/22 17:13 Pulse Oximetry 98 04/25/22 17:13 Course Orders Ordered: ED Orders 04/25/22 19:10 Chest [XR chest 2V] Stat Vital Signs Vital signs: Vital Signs - 8 hr 04/25/22 17:13 Temperature 97.8 F Pulse Rate 84 Respiratory Rate 18 Blood Pressure 122/83 Pulse Oximetry 98 MDM - Fall Imaging Data Chest x-ray: Radiologist's Impression: Launch?[address] [address] XRay Report Signed Patient: Minesh Olvera MR#: [id number] : 1980 Acct:[id number] Age/Sex: 41 / F Date of Service: 04/25/22 Loc: ED Accession Number: [id number] ?? Procedure: XR chest 2V Ordering Provider: Danial Macedo D.O. PROCEDURE:? XR CHEST 2V ? INDICATIONS:? fall with chest wall injury ? TECHNIQUE:? 2 views of the chest were acquired.? ? COMPARISON:? [facility], , CHEST 1 VIEW, 12/01/2014, 19:25.? [facility], [place], XR CHEST 1V, 01/02/2022, 12:33. ? FINDINGS:? ? Surgical changes and devices:? None.? ? Lungs and pleura:? Lungs are clear.? No pleural effusions or pneumothorax.? ? Mediastinum:? Mediastinal contours are normal.? Heart size is normal.? ? Bones and chest wall:? No suspicious bony abnormalities.? Soft tissues appear unremarkable.? ? IMPRESSION:? No acute cardiopulmonary disease process. ? ? Dictated by: Eliza Harris MD, PhD on 04/25/2022 at 19:54 ? ? Approved by: Eliza Harris MD, PhD on 04/25/2022 at 19:55 ? Discharge Plan Departure Patient Disposition: Home Clinical Impression: Chest wall contusion Instructions: How to Prevent Falls Activity Restrictions/Additional Instructions: *You have been diagnosed with [ground level fall with chest wall contusion *What to do: *Please continue to take your regular medications as directed. [ ] New medication prescriptions sent to your pharmacy: [ ] [ ] New medication written as a paper prescription [x ] No new medications given *Please follow up with your primary care provider in 2-3 days, call for an appointment. Let them know you were seen in the Emergency Department and that we ask that you be seen in follow up. We will electronically transmit a record of today's note if your PCP is in our system *If you do not have a primary care provider please contact the [facility] Resource line at [phone]. They will ask some questions about your medical history and help get you set up with a doctor in the community. *Return to Emergency Department if you should have any new, worsening or concerning symptoms Prescriptions: No Action omeprazole 20 mg capsule,delayed release(DR/EC) 20 mg PO DAILY Qty: 14 0RF Stand Alone Forms: Work Release Note
--- NOTE | 2022-04-25 19:10 | DI.RAD.S_ITS ---
PROCEDURE: XR CHEST 2V INDICATIONS: fall with chest wall injury TECHNIQUE: 2 views of the chest were acquired. COMPARISON: [facility], [place], CHEST 1 VIEW, 12/01/2014, 19:25. [facility], [place], XR CHEST 1V, 01/02/2022, 12:33. FINDINGS: Surgical changes and devices: None. Lungs and pleura: Lungs are clear. No pleural effusions or pneumothorax. Mediastinum: Mediastinal contours are normal. Heart size is normal. Bones and chest wall: No suspicious bony abnormalities. Soft tissues appear unremarkable. IMPRESSION: No acute cardiopulmonary disease process. Dictated by: Eliza Harris MD, PhD on 04/25/2022 at 19:54 Approved by: Eliza Harris MD, PhD on 04/25/2022 at 19:55
[2022-04-25 20:23] VITALS: BP 113/79; PULSE 77; RESP 19; O2SAT 100
== END 2022-04-25 20:25 | disposition home or self-care (01) ==
PROVIDERS: Emergency Provider Emergency Medicine
DX: S20.219A Contusion of unspecified front wall of thorax, initial encounter (principal); W01.0XXA Fall on same level from slipping, tripping and stumbling without subsequent striking against object, initial encounter; Y99.0 Civilian activity done for income or pay
CPT/HCPCS: 71046; 99281; 99282

== ENCOUNTER 2022-07-28 22:19 | Emergency (ER) | payer OTHER, SELFPAY ==
[2022-07-28 22:29] VITALS: BP 130/79; PULSE 90; RESP 18; TEMP 36.6; O2SAT 99; BMI 43.9
== END 2022-07-28 23:31 | disposition left against medical advice (07) ==
PROVIDERS: Emergency Provider Emergency Medicine
CPT/HCPCS: 99281

== ENCOUNTER → 2022-08-14 09:27 | Outpatient (CLI) | payer OTHER, SELFPAY | PROVIDERS: Visit Provider Nurse Practitioner Family | DX: J02.9 Acute pharyngitis, unspecified (principal) | CPT/HCPCS: 87070 ==

== ENCOUNTER 2022-11-20 17:11 | Emergency (ER) | payer OTHER, SELFPAY ==
[2022-11-20 17:18] VITALS: BP 110/74; PULSE 114; RESP 22; TEMP 37.7; O2SAT 98; BMI 43.9
[2022-11-20] MEDS: ACETAMINOPHEN 325 MG TABLET 975 MG PO (17:25)
[2022-11-20 18:06] LABS: COVID-19 CEPHEID 4-PLEX PCR Negative (Negative); Influenza A - CEPHEID Flu A POSITIVE (NEGATIVE); Influenza B - CEPHEID Flu B NEGATIVE (NEGATIVE); Respiratory Syncytial Virus Negative (Negative)
[2022-11-20 19:24] VITALS: BP 107/61; PULSE 97; RESP 20; TEMP 36.7; O2SAT 96
[2022-11-20 19:25] VITALS: TEMP 36.7
[2022-11-20] MEDS: ALBUTEROL HFA PREPACK 1 BOX MISC (19:36)
[2022-11-20] MEDS: DEXAMETHASONE 10 MG/ML VIAL PO (19:36)
--- NOTE | 2022-11-20 19:37 | ED.URI ---
HPI - URI/Sore Throat <CORNELIA Suero - Last Filed: 11/20/22 19:43> General Chief Complaint: Upper Respiratory Symptoms Stated Complaint: Flu symptoms Time Seen by Provider: 11/20/22 19:31 Source: patient Mode of arrival: Ambulatory History of Present Illness HPI Narrative: This is a 42-year-old female who presents to the emergency department with chills, cough, congestion, states that she has flu-like symptoms. She has a history of asthma, presents with wheezing, shortness of breath, states that she is had these symptoms for about the last 3 days. She states that she vomited x1 yesterday. No significant nausea vomiting today. She has albuterol but has use it because she does not like it. Has a history of allergy to Levaquin and sulfa. Denies dysuria, urinary frequency or urgency, back pain, neck pain, has a mild headache and she received some Tylenol earlier for that. Has been seen in the emergency department for asthma exacerbations in the past. Related Data Previous Rx's Medication Instructions Recorded omeprazole 20 mg capsule,delayed 20 mg PO DAILY #14 caps 03/02/19 release ibuprofen 800 mg tablet 800 mg PO Q8H PRN pain #30 tabs 07/29/22 albuterol sulfate 90 mcg/actuation 1 inh inhalation Q4-6H PRN 11/20/22 breath activated powder inhaler shortness of breath or wheezing #1 ea ondansetron 4 mg disintegrating 4 mg PO Q8H PRN nausea and 11/20/22 tablet vomiting #10 tabs prednisone 20 mg tablet 20 mg PO DAILY #4 tabs 11/20/22 Allergies Allergy/AdvReac Type Severity Reaction Status Date / Time levofloxacin [From LEVAQUIN] Allergy Unknown Verified 07/29/22 16:11 Sulfa (Sulfonamide Allergy Unknown Hives Verified 11/20/22 17:18 Antibiotics) Review of Systems <CORNELIA Suero - Last Filed: 11/20/22 19:43> Review of Systems ROS Unobtainable: All systems reviewed & are unremarkable except as noted in HPI and below Patient History <CORNELIA Suero - Last Filed: 11/20/22 19:43> Medical History Asthma Surgical History History of Hx of tubal ligation Family History Mother Age: 62 Diabetes mellitus Sister Age: 42 Abnormal thyroid function test Social History Smoking Status: Never smoker Smoking Status: Never smoker alcohol intake frequency: holidays/special occasions only Substance Use Type: does not use Exam <CORNELIA Suero - Last Filed: 11/20/22 19:43> Narrative Exam Narrative: Reviewed vitals signs and nursing notes. General: cooperative, comfortable, in no acute distress, well groomed HEENT: symmetrical facial expressions, moist mucous membranes, mild congestion Cardiovascular: Initially tachycardic, this has improved, regular rate and rhythm, no peripheral edema, warm extremities Respiratory: normal effort, able to speak in complete sentences, expiratory wheezes heard in middle/lower lobes bilaterally without diminished breath sounds, crackles, rhonchi, stridor, increased work of breathing but she is tachypneic. MDI spacer training and albuterol inhaler improved her wheezing and symptoms on reexam, without hypoxia GI: abdomen soft, nontender to palpation, nondistended, without masses, rebound tenderness or exquisite tenderness with exam. No CVA tenderness MSK: moves all extremities, neurovascularly intact, no weakness, normal tone Skin: brisk capillary refill, without pallor or erythema Neuro: normal speech and cognition, A&O x3, ambulatory, clear speech Psych: mental status is grossly normal, congruent mood, normal affect, pleasant and cooperative Initial Vital Signs Initial Vital Signs: Vital Signs Temperature 100 F H 11/20/22 17:18 Pulse Rate 114 H 11/20/22 17:18 Respiratory Rate 22 11/20/22 17:18 Blood Pressure 110/74 11/20/22 17:18 Pulse Oximetry 98 11/20/22 17:18 Oxygen Delivery Method 11/20/22 17:18 <Danial Macedo DO - Last Filed: 11/24/22 10:56> Initial Vital Signs Initial Vital Signs: Vital Signs Temperature 100 F H 11/20/22 17:18 Pulse Rate 114 H 11/20/22 17:18 Respiratory Rate 22 11/20/22 17:18 Blood Pressure 110/74 11/20/22 17:18 Pulse Oximetry 98 11/20/22 17:18 Oxygen Delivery Method 11/20/22 17:18 Course <CORNELIA Suero - Last Filed: 11/20/22 19:43> Orders Ordered: Discontinued Medications Acetaminophen (Acetaminophen 325 Mg Tablet) 975 mg PO NOW ONE Stop: 11/20/22 17:23 Last Admin: 11/20/22 17:25 Dose: 975 mg Documented By: SHANNON Albuterol (Albuterol Hfa Prepack) 1 box [facility] SEEINSTR ONE Stop: 11/20/22 19:32 Last Admin: 11/20/22 19:36 Dose: 1 box Documented By: SUNNY Dexamethasone (Dexamethasone 10 Mg/Ml Vial) 10 mg PO NOW ONE Stop: 11/20/22 19:32 Last Admin: 11/20/22 19:36 Dose: 10 mg Documented By: SUNNY Vital Signs Vital signs: Vital Signs - 8 hr 11/20/22 17:18 11/20/22 19:24 11/20/22 19:25 Temperature 100 F H 98.1 F 98.1 F Pulse Rate 114 H 97 H Respiratory Rate 22 20 Blood Pressure 110/74 107/61 Pulse Oximetry 98 96 Oxygen Delivery Method Room Air Room Air <Danial Macedo DO - Last Filed: 11/24/22 10:56> Orders Ordered: Discontinued Medications Acetaminophen (Acetaminophen 325 Mg Tablet) 975 mg PO NOW ONE Stop: 11/20/22 17:23 Last Admin: 11/20/22 17:25 Dose: 975 mg Documented By: SHANNON Albuterol (Albuterol Hfa Prepack) 1 box [facility] SEEINSTR ONE Stop: 11/20/22 19:32 Last Admin: 11/20/22 19:36 Dose: 1 box Documented By: SUNNY Dexamethasone (Dexamethasone 10 Mg/Ml Vial) 10 mg PO NOW ONE Stop: 11/20/22 19:32 Last Admin: 11/20/22 19:36 Dose: 10 mg Documented By: SUNNY Vital Signs Vital signs: Vital Signs - 8 hr 11/20/22 17:18 11/20/22 19:24 11/20/22 19:25 Temperature 100 F H 98.1 F 98.1 F Pulse Rate 114 H 97 H Respiratory Rate 22 20 Blood Pressure 110/74 107/61 Pulse Oximetry 98 96 Oxygen Delivery Method Room Air Room Air MDM - URI/Sore Throat <CORNELIA Suero - Last Filed: 11/20/22 19:43> Lab Data Labs: Lab Results 11/20/22 Range/Units 17:21 SARS-CoV-2 (PCR) Negative (Negative) Influenza A (RT-PCR) Flu a positive H (NEGATIVE) Influenza B (RT-PCR) Flu b negative (NEGATIVE) RSV (PCR) Negative (Negative) MDM Narrative Medical decision making narrative: This is a 42-year-old female presents emergency department today with concern for flu-like symptoms for the last 3 days, episode of vomiting times yesterday, cough, congestion with expiratory wheezes bilaterally in her middle and lower lobes. Respiratory panel is positive for influenza A. MDI spacer training and albuterol MDI with improved symptoms afterwards, patient is given Decadron. Asthma exacerbation without evidence of hypoxia, respiratory distress, dehydration, or focal exam to suggest secondary bacterial infection. - Prednisone prescribed today. Use albuterol with spacer up to to every 4-6 hours as needed for shortness of breath/wheezing. - Discussed supportive treatments: Tylenol/Motrin as needed for pain/fever. OTC antihistamines for symptomatic relief. Maintain adequate fluid intake. - Follow-up with PCP as directed. Return to clinic/ER instructions discussed for new, not improving, or worsening symptoms. All questions answered. <Danial Macedo DO - Last Filed: 11/24/22 10:56> Lab Data Labs: Lab Results 11/20/22 Range/Units 17:21 SARS-CoV-2 (PCR) Negative (Negative) Influenza A (RT-PCR) Flu a positive H (NEGATIVE) Influenza B (RT-PCR) Flu b negative (NEGATIVE) RSV (PCR) Negative (Negative) Discharge Plan Departure Patient Disposition: Home Clinical Impression: Influenza A, History of asthma Instructions: Asthma -- Adult, DI for Influenza -- Adult Activity Restrictions/Additional Instructions: *You have been diagnosed with influenza A, and have wheezing currently. Please use your albuterol inhaler every 4 hours as needed for shortness of breath, wheezing, I am sorry that you do not like it but use the spacer and it should bother use much. Please take the prednisone for the next 4 days, do not take any today since he received steroids here in the emergency department. If you have worsening shortness of breath, please come back to the emergency department. Stay hydrated, take Tylenol and ibuprofen for your pain, chills, other discomfort. Please use Zofran as needed for nausea. Thank you for your patience today, I hope you feel better soon. *What to do: *Please continue to take your regular medications as directed. [x ] New medication prescriptions sent to your pharmacy: [[facility] ] [ ] New medication written as a paper prescription [ ] No new medications given *Please follow up with your primary care provider in 2-3 days, call for an appointment. Let them know you were seen in the Emergency Department and that we asked that you be seen for follow-up. We will electronically transmit a record of today's note if your PCP is in our system *If you do not have a primary care provider please contact [phone] to establish care with one of [facility] primary care providers. *Return to Emergency Department if you should have any new, worsening, or concerning symptoms, such as [fever greater than 101F, chills, worsening pain, persistent vomiting or other bothersome symptoms]. Prescriptions: New albuterol sulfate 90 mcg/actuation aerosol powdr breath activated 1 inh inhalation Q4-6H PRN (Reason: shortness of breath or wheezing) Qty: 1 3RF prednisone 20 mg tablet 20 mg PO DAILY Qty: 4 0RF ondansetron 4 mg tablet,disintegrating 4 mg PO Q8H PRN (Reason: nausea and vomiting) Qty: 10 0RF No Action ibuprofen 800 mg tablet 800 mg PO Q8H PRN (Reason: pain) Qty: 30 0RF omeprazole 20 mg capsule,delayed release(DR/EC) 20 mg PO DAILY Qty: 14 0RF Referrals: Miscellaneous,Doctor, MD [Primary Care Provider] - Stand Alone Forms: Work Release Note <Danial Macedo DO - Last Filed: 11/24/22 10:56> Cosign ED Attending Ferature Attestation: I was immediately available in the department for consultation. This documentation has been reviewed and I agree with assessment and plan. Supervised by Danial Macedo DO
== END 2022-11-20 19:45 | disposition home or self-care (01) ==
PROVIDERS: Emergency Medicine; Emergency Provider Nurse Practitioner Critical Care Medicine
DX: J10.1 Influenza due to other identified influenza virus with other respiratory manifestations (principal); R11.10 Vomiting, unspecified; Z20.822 Contact with and (suspected) exposure to COVID-19; Z87.09 Personal history of other diseases of the respiratory system
CPT/HCPCS: 0241U; 99283; J1100

== ENCOUNTER 2022-11-25 18:20 | Emergency (ER) | payer OTHER, SELFPAY ==
[2022-11-25 18:56] VITALS: BP 119/74; PULSE 95; RESP 18; TEMP 36.6; O2SAT 96; BMI 43.9
== END 2022-11-25 22:05 | disposition left against medical advice (07) ==
PROVIDERS: Emergency Provider Emergency Medicine
CPT/HCPCS: 99281

== ENCOUNTER → 2022-12-04 16:09 | Outpatient (CLI) | payer OTHER, SELFPAY ==
[2022-12-04 18:27] LABS: Influenza A - CEPHEID Flu A NEGATIVE (NEGATIVE); Influenza B - CEPHEID Flu B NEGATIVE (NEGATIVE); Respiratory Syncytial Virus Negative (Negative)
[2022-12-04 18:51] LABS: COVID-19 CEPHEID 4-PLEX PCR POSITIVE (Negative)
== END ==
PROVIDERS: Visit Provider Student in an Organized Health Care Education/Training Program
DX: J02.9 Acute pharyngitis, unspecified (principal); U07.1 COVID-19; J06.9 Acute upper respiratory infection, unspecified; Z20.822 Contact with and (suspected) exposure to COVID-19
CPT/HCPCS: 0241U; 87070

== ENCOUNTER → 2022-12-09 16:41 | Outpatient (CLI) | payer OTHER, SELFPAY | PROVIDERS: Visit Provider Nurse Practitioner Family | DX: J02.9 Acute pharyngitis, unspecified (principal) | CPT/HCPCS: 87070; 87147 ==

== ENCOUNTER 2023-07-17 16:22 | Emergency (ER) | payer OTHER, SELFPAY ==
[2023-07-17 16:47] VITALS: BP 127/79; PULSE 102; RESP 18; TEMP 36.7; O2SAT 97; BMI 43.9
[2023-07-17 17:11] LABS: COVID19 -Nasal RAPID POSITIVE (Negative)
--- NOTE | 2023-07-17 18:04 | DI.RAD.S_ITS ---
PROCEDURE: XR CHEST 2V INDICATIONS: asthma, COVID TECHNIQUE: 2 views of the chest were acquired. COMPARISON: [facility], [place], XR CHEST 1V, 01/02/2022, 12:33. [facility], CR, XR CHEST 2V, 04/25/2022, 19:28. FINDINGS: Surgical changes and devices: None. Lungs and pleura: Mild generalized interstitial prominence can be seen. No focal infiltrates are seen. No pleural effusions or pneumothorax. Mediastinum: Mediastinal contours are normal. Heart size is normal. Bones and chest wall: No suspicious bony abnormalities. Soft tissues appear unremarkable. IMPRESSION: Mild generalized interstitial prominence can be seen, which can be related to asthma or atypical infection, which is consistent with the given history. No consolidated infiltrates can be seen. Dictated by: Daryl Amaya M.D. on 07/17/2023 at 17:39 Approved by: Daryl Amaya M.D. on 07/17/2023 at 17:40
[2023-07-17 18:29] VITALS: BP 115/80; PULSE 80; RESP 18; O2SAT 98
--- NOTE | 2023-07-18 11:01 | ED.URI ---
HPI - URI/Sore Throat <Cheyanne Gonzalez, [facility] - Last Filed: 07/18/23 11:12> General Chief Complaint: Upper Respiratory Symptoms Stated Complaint: Not feeling well Time Seen by Provider: 07/17/23 17:46 Source: patient Mode of arrival: Ambulatory History of Present Illness HPI Narrative: This is a 42-year-old female with history of asthma and elevated BMI who presents emergency department reporting that she has developed a sore throat, congestion, runny nose, complains of poor sleep and reports her symptoms have been ongoing for almost 2 weeks. 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 She thinks it could be COVID. She denies shortness of breath, wheezing, needing her albuterol more, she denies chest pain but feels tired, complains of the persistent congestion. Denies fever, endorses having chills, denies diarrhea or vomiting. Related Data Previous Rx's Medication Instructions Recorded omeprazole 20 mg capsule,delayed 20 mg PO DAILY #14 caps 03/02/19 release ibuprofen 800 mg tablet 800 mg PO Q8H PRN pain #30 tabs 07/29/22 albuterol sulfate 90 mcg/actuation 1 inh inhalation Q4-6H PRN 11/20/22 breath activated powder inhaler shortness of breath or wheezing #1 ea ondansetron 4 mg disintegrating 4 mg PO Q8H PRN nausea and 11/20/22 tablet vomiting #10 tabs prednisone 20 mg tablet 20 mg PO DAILY #4 tabs 11/20/22 benzonatate 100 mg capsule 100 mg PO TID PRN cough #21 caps 12/04/22 codeine 7.5 mg-guaifenesin 225 7.5 ml PO Q4-6H PRN cold symptoms, 12/04/22 mg/5 mL oral liquid cough #473 mL cetirizine 5 mg-pseudoephedrine ER 1 tab PO BID PRN nasal congestion 07/17/23 120 mg tablet,extended release,12hr #20 tabs fluticasone propionate 50 1 spray intranasal DAILY #16 grams 07/17/23 mcg/actuation nasal spray,suspension nirmatrelvir 300 mg (150 mg See Rx Instructions PO .COMPLEX 07/17/23 x2)-ritonavir 100 mg tablet,dose #30 ea pack (Paxlovid) Allergies Allergy/AdvReac Type Severity Reaction Status Date / Time Sulfa (Sulfonamide Allergy Unknown Hives Verified 07/17/23 16:47 Antibiotics) levofloxacin [From LEVAQUIN] AdvReac Unknown abdominal Verified 07/17/23 16:47 discomfort Review of Systems <CORNELIA Suero - Last Filed: 07/18/23 11:12> Review of Systems ROS Unobtainable: All systems reviewed & are unremarkable except as noted in HPI and below Patient History <CORNELIA Suero - Last Filed: 07/18/23 11:12> Medical History Asthma Surgical History History of Hx of tubal ligation Family History Mother Age: 62 Diabetes mellitus Sister Age: 42 Abnormal thyroid function test Social History Smoking Status: Never smoker Smoking Status: Never smoker alcohol intake frequency: holidays/special occasions only Substance Use Type: does not use Exam <CORNELIA Suero - Last Filed: 07/18/23 11:12> Narrative Exam Narrative: Reviewed vitals signs and nursing notes. General: Pleasant, sitting upright, in no acute distress, well groomed, afebrile HEENT: symmetrical facial expressions, moist mucous membranes, neck is supple, congestion present, no sinus tenderness to palpation, posterior pharynx without tonsillar exudate, uvula is midline, airway is widely patent without stridor CV: regular rate and rhythm, warm extremities Respiratory: normal work of breathing, without tachypnea or hypoxia. Breath sounds are clear throughout all casarez, patient has an occasional cough without rhonchi. GI: abdomen soft, nondistended, without CVA tenderness bilaterally. MSK: moves all extremities, no weakness, normal tone, ambulatory without deficit Skin: brisk capillary refill, without rash or wound Neuro: clear speech and normal cognition, A&O x3, GCS 15, no focal motor or sensation deficits Initial Vital Signs Initial Vital Signs: Vital Signs Temperature 98.1 F 07/17/23 16:47 Pulse Rate 102 H 07/17/23 16:47 Respiratory Rate 18 07/17/23 16:47 Blood Pressure 127/79 07/17/23 16:47 Pulse Oximetry 97 07/17/23 16:47 Oxygen Delivery Method Room Air 07/17/23 16:47 <Danial Macedo DO - Last Filed: 07/18/23 16:20> Initial Vital Signs Initial Vital Signs: Vital Signs Temperature 98.1 F 07/17/23 16:47 Pulse Rate 102 H 07/17/23 16:47 Respiratory Rate 18 07/17/23 16:47 Blood Pressure 127/79 07/17/23 16:47 Pulse Oximetry 97 07/17/23 16:47 Oxygen Delivery Method Room Air 07/17/23 16:47 MDM - URI/Sore Throat <CORNELIA Suero - Last Filed: 07/18/23 11:12> Lab Data Labs: Lab Results 07/17/23 Range/Units 16:51 SARS-CoV-2 (PCR) Positive H (Negative) Imaging Data Chest x-ray: Radiologist's Impression: [address] [address] XRay Report Signed Patient: Minesh Olvera MR#: [id number] : 1980 Acct:[id number] Age/Sex: 42 / F Date of Service: 07/17/23 Loc: ED Accession Number: [id number] ?? Procedure: XR chest 2V Ordering Provider: Cheyanne Gonzalez PROCEDURE:? XR CHEST 2V ? INDICATIONS:? asthma, COVID ? TECHNIQUE:? 2 views of the chest were acquired.? ? COMPARISON:? [facility], CR, XR CHEST 1V, 01/02/2022, 12:33.? [facility], CR, XR CHEST 2V, 04/25/2022, 19:28. ? FINDINGS:? ? Surgical changes and devices:? None.? ? Lungs and pleura:? Mild generalized interstitial prominence can be seen.? No focal infiltrates are seen. ? ? No pleural effusions or pneumothorax.? ? Mediastinum:? Mediastinal contours are normal.? Heart size is normal.? ? Bones and chest wall:? No suspicious bony abnormalities.? Soft tissues appear unremarkable.? IMPRESSION:? Mild generalized interstitial prominence can be seen, which can be related to asthma or atypical infection, which is consistent with the given history. ? No consolidated infiltrates can be seen. ? ? Dictated by: Daryl Amaya M.D. on 07/17/2023 at 17:39 ? ? Approved by: Daryl Amaya M.D. on 07/17/2023 at 17:40 ? MDM Narrative Medical decision making narrative: Chief Complaint: Congestion Multiple etiologies for patient's complaint considered including, but not limited to: Asthma exacerbation, acute viral illness including COVID, bronchitis, pneumonia, postnasal drip, I have independently reviewed the patient's vital signs and nursing notes as well as prior records if available. On exam patient has clear breath sounds throughout, without hypoxia or tachypnea, mild congestion and fatigue, we will obtain chest x-ray for history of asthma, obesity and COVID positive PCR. Chest x-ray shows mild generalized interstitial prominence. No focal consolidations. Patient reports that her symptoms truly started 4 days ago and she will be taking the next 5 days off of work. Given a work note, she is in no distress. Discussed starting Paxil of it if she has worsening, she does not take any contraindicated medications currently. She wishes to try supportive care and was prescribed Zyrtec D and Flonase, was also given a prescription of Paxlovid to start if she has worsening or shortness of breath starts. She understands to return to the emergency department if she develops severe symptoms, she states that they are fairly mild and she can tolerate them without the medication. She has normal renal function. Social considerations that may affect disposition: none Questions are addressed and there is agreement with the plan and for follow-up with PCP or ED. I consulted with the ED attending physician Dr. Macedo as needed for higher level of care considerations and they were available for discussion and recommendations regarding plan of care and diagnostic testing. Patient is appropriate for outpatient management. <Danial Macedo, DO - Last Filed: 07/18/23 16:20> Lab Data Labs: Lab Results 07/17/23 Range/Units 16:51 SARS-CoV-2 (PCR) Positive H (Negative) Discharge Plan Departure Patient Disposition: Home Clinical Impression: COVID-19, History of asthma Instructions: COVID-19 Activity Restrictions/Additional Instructions: *You have been diagnosed with Covid and since you have a history of asthma and the potential to get more ill I have prescribed for you Paxlovid which is for COVID illness to be started within 5 days of onset of symptoms to hopefully reduce the severity and length of the illness. If you have worsening of your symptoms in the next 2-3 days please start this medication. For COVID, please use Zyrtec D for congestion, best to be taken in the morning, please use Flonase for congestion and runny nose, it will help with postnasal drip and phlegm. For your sore throat, please use throat lozenges and drink tea with honey. Stay hydrated, take Tylenol and ibuprofen as needed for your pain. *What to do: *Please continue to take your regular medications as directed. [ x] New medication prescriptions sent to your pharmacy: [[facility] ] [ ] New medication written as a paper prescription [ ] No new medications given *Please call and schedule follow up with your primary care provider in 2-3 days, at least for an update. Let them know you were seen in the Emergency Department for the above problem. We will electronically transmit a record of today's note if your PCP or specialist is in our system. *If you do not have a primary care provider please contact [phone] to establish care with one of the [facility] primary care providers. *Return to the Emergency Department for worsening symptoms, inability to keep liquids down, fever greater than 101F, chills, or other concerning symptom. Prescriptions: New Paxlovid 300 mg (150 mg x 2)-100 mg tablets,dose pack See Rx Instructions .ROUTE .COMPLEX Qty: 30 0RF Rx Instructions: take TWO 150 mg tablets of nirmatrelvir with ONE 100 mg tablet of ritonavir twice daily for 5 days cetirizine-pseudoephedrine 5-120 mg tablet extended release 12 hr 1 tab PO BID PRN (Reason: nasal congestion) Qty: 20 0RF fluticasone propionate 50 mcg/actuation spray,suspension 1 spray intranasal DAILY Qty: 16 0RF Rx Instructions: administer into each nostril No Action ibuprofen 800 mg tablet 800 mg PO Q8H PRN (Reason: pain) Qty: 30 0RF benzonatate 100 mg capsule 100 mg PO TID PRN (Reason: cough) Qty: 21 1RF codeine-guaifenesin 7.5-225 mg/5 mL liquid 7.5 ml PO Q4-6H PRN (Reason: cold symptoms, cough) Qty: 473 0RF albuterol sulfate 90 mcg/actuation aerosol powdr breath activated 1 inh inhalation Q4-6H PRN (Reason: shortness of breath or wheezing) Qty: 1 3RF prednisone 20 mg tablet 20 mg PO DAILY Qty: 4 0RF ondansetron 4 mg tablet,disintegrating 4 mg PO Q8H PRN (Reason: nausea and vomiting) Qty: 10 0RF omeprazole 20 mg capsule,delayed release(DR/EC) 20 mg PO DAILY Qty: 14 0RF Referrals: Miscellaneous,Doctor, MD [Primary Care Provider] - Stand Alone Forms: Patient Portal/API, Work Release Note <Danial Macedo DO - Last Filed: 07/18/23 16:20> Cosign ED Attending Georgie Attestation: I was immediately available in the department for consultation. Documentation has been reviewed. I agree with assessment and plan.
== END 2023-07-17 18:31 | disposition home or self-care (01) ==
PROVIDERS: Emergency Medicine; Emergency Provider Nurse Practitioner Critical Care Medicine
DX: U07.1 COVID-19 (principal); J45.909 Unspecified asthma, uncomplicated
CPT/HCPCS: 71046; 87635; 99281; 99283; C9803

== ENCOUNTER 2023-07-21 19:57 | Emergency (ER) | payer OTHER, SELFPAY ==
[2023-07-21 20:05] VITALS: BP 117/80; PULSE 98; RESP 18; TEMP 36.2; O2SAT 99; BMI 43.9
[2023-07-21 20:30] LABS: COVID19 -Nasal RAPID Negative (Negative)
--- NOTE | 2023-07-21 21:03 | ED.RECABL ---
HPI - Recheck/Abnormal Lab/Rx General Chief Complaint: Recheck/Abnormal Lab/Rx Stated Complaint: wants tested for covid Time Seen by Provider: 07/21/23 21:02 Source: patient Mode of arrival: Ambulatory History of Present Illness HPI narrative: Patient is a 42-year-old female history of asthma presenting today wanting a COVID test. She was seen evaluated here in the 26 diagnosed with COVID she overall is feeling better but she needs a test to go back to work Related Data Previous Rx's Medication Instructions Recorded omeprazole 20 mg capsule,delayed 20 mg PO DAILY #14 caps 03/02/19 release ibuprofen 800 mg tablet 800 mg PO Q8H PRN pain #30 tabs 07/29/22 albuterol sulfate 90 mcg/actuation 1 inh inhalation Q4-6H PRN 11/20/22 breath activated powder inhaler shortness of breath or wheezing #1 ea ondansetron 4 mg disintegrating 4 mg PO Q8H PRN nausea and 11/20/22 tablet vomiting #10 tabs prednisone 20 mg tablet 20 mg PO DAILY #4 tabs 11/20/22 benzonatate 100 mg capsule 100 mg PO TID PRN cough #21 caps 12/04/22 codeine 7.5 mg-guaifenesin 225 7.5 ml PO Q4-6H PRN cold symptoms, 12/04/22 mg/5 mL oral liquid cough #473 mL cetirizine 5 mg-pseudoephedrine ER 1 tab PO BID PRN nasal congestion 07/17/23 120 mg tablet,extended release,12hr #20 tabs fluticasone propionate 50 1 spray intranasal DAILY #16 grams 07/17/23 mcg/actuation nasal spray,suspension nirmatrelvir 300 mg (150 mg See Rx Instructions PO .COMPLEX 07/17/23 x2)-ritonavir 100 mg tablet,dose #30 ea pack (Paxlovid) Allergies Allergy/AdvReac Type Severity Reaction Status Date / Time Sulfa (Sulfonamide Allergy Unknown Hives Verified 07/17/23 16:47 Antibiotics) levofloxacin [From LEVAQUIN] AdvReac Unknown abdominal Verified 07/17/23 16:47 discomfort Review of Systems Review of Systems ROS Unobtainable: All systems reviewed & are unremarkable except as noted in HPI and below Patient History Medical History (Updated 07/21/23 @ 21:08 by Denae Baltazar DO) Asthma Surgical History History of Hx of tubal ligation Family History Mother Age: 62 Diabetes mellitus Sister Age: 42 Abnormal thyroid function test Social History Smoking Status: Never smoker Smoking Status: Never smoker alcohol intake frequency: holidays/special occasions only Substance Use Type: does not use Exam Initial Vital Signs Initial Vital Signs: Vital Signs Temperature 97.2 F L 07/21/23 20:05 Pulse Rate 98 H 07/21/23 20:05 Respiratory Rate 18 07/21/23 20:05 Blood Pressure 117/80 07/21/23 20:05 Pulse Oximetry 99 07/21/23 20:05 Oxygen Delivery Method Room Air 07/21/23 20:05 GENERAL: Alert well-appearing 42-year-old female and in no acute distress. HEENT: Head atraumatic,EOMI, pupils reactive, face symmetric, moist mucous membranes CARDIOVASCULAR: Regular rate and rhythm without murmurs, rubs or gallops. RESPIRATORY: Breath sounds equal bilaterally, no wheezes rales or rhonchi. EXTREMITIES: Normal range of motion, no clubbing or edema. Neurovascularly intact NEUROLOGICAL: Alert and oriented x4. SKIN: Warm, dry, no laceration, no petechiae, no rashes or lesions. Course Orders Ordered: ED Orders 07/21/23 20:10 COVID19 -Nasal RAPID Stat Vital Signs Vital signs: Vital Signs - 8 hr 07/21/23 20:05 07/21/23 21:13 Temperature 97.2 F L Pulse Rate 98 H 90 Respiratory Rate 18 16 Blood Pressure 117/80 Pulse Oximetry 99 99 Oxygen Delivery Method Room Air Room Air MDM - Recheck/Abnormal Lab/Rx Lab Data Labs: Lab Results 07/21/23 Range/Units 20:10 SARS-CoV-2 (PCR) Negative (Negative) MDM Narrative Medical decision making narrative: Patient 42-year-old female wanting COVID test today fortunately it is negative her symptoms have improved. She needs a note for work copy of her test Discharge Plan Departure Patient Disposition: Home Clinical Impression: Feared complaint without diagnosis Activity Restrictions/Additional Instructions: *You have been diagnosed with COVID test today is negative *What to do: *Continue to take medications as directed *Follow up with your primary care provider in 2-3 days or call [phone] *Return to ER if you should have any new, worsening or concerning symptoms Prescriptions: No Action ibuprofen 800 mg tablet 800 mg PO Q8H PRN (Reason: pain) Qty: 30 0RF benzonatate 100 mg capsule 100 mg PO TID PRN (Reason: cough) Qty: 21 1RF codeine-guaifenesin 7.5-225 mg/5 mL liquid 7.5 ml PO Q4-6H PRN (Reason: cold symptoms, cough) Qty: 473 0RF albuterol sulfate 90 mcg/actuation aerosol powdr breath activated 1 inh inhalation Q4-6H PRN (Reason: shortness of breath or wheezing) Qty: 1 3RF prednisone 20 mg tablet 20 mg PO DAILY Qty: 4 0RF ondansetron 4 mg tablet,disintegrating 4 mg PO Q8H PRN (Reason: nausea and vomiting) Qty: 10 0RF omeprazole 20 mg capsule,delayed release(DR/EC) 20 mg PO DAILY Qty: 14 0RF Paxlovid 300 mg (150 mg x 2)-100 mg tablets,dose pack See Rx Instructions .ROUTE .COMPLEX Qty: 30 0RF Rx Instructions: take TWO 150 mg tablets of nirmatrelvir with ONE 100 mg tablet of ritonavir twice daily for 5 days cetirizine-pseudoephedrine 5-120 mg tablet extended release 12 hr 1 tab PO BID PRN (Reason: nasal congestion) Qty: 20 0RF fluticasone propionate 50 mcg/actuation spray,suspension 1 spray intranasal DAILY Qty: 16 0RF Rx Instructions: administer into each nostril Stand Alone Forms: Patient Portal/API, Work Release Note
[2023-07-21 21:13] VITALS: PULSE 90; RESP 16; O2SAT 99
== END 2023-07-21 21:14 | disposition home or self-care (01) ==
PROVIDERS: Emergency Provider Emergency Medicine
DX: Z71.1 Person with feared health complaint in whom no diagnosis is made (principal); Z20.822 Contact with and (suspected) exposure to COVID-19; Z86.16 Personal history of COVID-19
CPT/HCPCS: 87635; 99281; 99282; C9803

== ENCOUNTER 2023-10-08 09:01 | Emergency (ER) | payer OTHER, SELFPAY ==
[2023-10-08 09:05] VITALS: BP 125/83; PULSE 107; RESP 18; TEMP 36.4; O2SAT 97; BMI 43.9
--- NOTE | 2023-10-08 09:09 | ED.GENADULT ---
HPI - General Adult General Chief complaint: Upper Respiratory Symptoms Stated complaint: runny nose Time Seen by Provider: 10/08/23 09:05 Source: patient Mode of arrival: Ambulatory History of Present Illness HPI narrative: 43-year-old female. Has been immunized against COVID however has had 3 times previously. Is here for evaluation of couple days of runny nose and cough and congestion. No fevers. She is here for a COVID test. Related Data Previous Rx's Medication Instructions Recorded omeprazole 20 mg capsule,delayed 20 mg PO DAILY #14 caps 03/02/19 release ibuprofen 800 mg tablet 800 mg PO Q8H PRN pain #30 tabs 07/29/22 albuterol sulfate 90 mcg/actuation 1 inh inhalation Q4-6H PRN 11/20/22 breath activated powder inhaler shortness of breath or wheezing #1 ea ondansetron 4 mg disintegrating 4 mg PO Q8H PRN nausea and 11/20/22 tablet vomiting #10 tabs prednisone 20 mg tablet 20 mg PO DAILY #4 tabs 11/20/22 benzonatate 100 mg capsule 100 mg PO TID PRN cough #21 caps 12/04/22 codeine 7.5 mg-guaifenesin 225 7.5 ml PO Q4-6H PRN cold symptoms, 12/04/22 mg/5 mL oral liquid cough #473 mL cetirizine 5 mg-pseudoephedrine ER 1 tab PO BID PRN nasal congestion 07/17/23 120 mg tablet,extended release,12hr #20 tabs fluticasone propionate 50 1 spray intranasal DAILY #16 grams 07/17/23 mcg/actuation nasal spray,suspension nirmatrelvir 300 mg (150 mg See Rx Instructions PO .COMPLEX 07/17/23 x2)-ritonavir 100 mg tablet,dose #30 ea pack (Paxlovid) Allergies Allergy/AdvReac Type Severity Reaction Status Date / Time Sulfa (Sulfonamide Allergy Unknown Hives Verified 10/08/23 09:07 Antibiotics) levofloxacin [From LEVAQUIN] AdvReac Unknown abdominal Verified 10/08/23 09:07 discomfort Review of Systems Constitutional Constitutional: Reports system reviewed and no additional complaints, except as documented ENT Ears, Nose, Mouth, and Throat: Reports system reviewed and no additional complaints, except as documented Respiratory Respiratory: Reports system reviewed and no additional complaints, except as documented Patient History Medical History (Updated 10/08/23 @ 09:53 by Mykel Loyd DO) Asthma Surgical History History of Hx of tubal ligation Family History Mother Age: 63 Diabetes mellitus Sister Age: 43 Abnormal thyroid function test Social History Smoking Status: Never smoker Smoking Status: Never smoker alcohol intake frequency: holidays/special occasions only Substance Use Type: does not use Exam Initial Vital Signs Initial Vital Signs: Vital Signs Temperature 97.5 F L 10/08/23 09:05 Pulse Rate 107 H 10/08/23 09:05 Respiratory Rate 18 10/08/23 09:05 Blood Pressure 125/83 10/08/23 09:05 Pulse Oximetry 97 10/08/23 09:05 Oxygen Delivery Method Room Air 10/08/23 09:05 HENMT HENMT Other: Obvious sinus congestion Resp Effort & Inspection: normal respiratory effort Auscultation: clear to auscultation bilaterally Skin General: no rashes or lesions noted Course Orders Ordered: ED Orders 10/08/23 09:09 COVID19 -Nasal RAPID Stat Vital Signs Vital signs: Vital Signs - 8 hr 10/08/23 09:05 Temperature 97.5 F L Pulse Rate 107 H Respiratory Rate 18 Blood Pressure 125/83 Pulse Oximetry 97 Oxygen Delivery Method Room Air Medical Decision Making Lab Data Lab results reviewed: Yes I reviewed the patient's lab results. Labs: Lab Results 10/08/23 Range/Units 09:10 SARS-CoV-2 (PCR) Negative (Negative) MDM Narrative Medical decision making narrative: COVID is negative. Discussed the results of this with the patient. We discussed [id number] medications that she could try. She was given return precautions. Discharge Plan Departure Patient Disposition: Home Clinical Impression: Upper respiratory infection Instructions: DI for Viral Upper Respiratory Infection -- Adult Activity Restrictions/Additional Instructions: Continue to take all of your medications as directed. You can try [id number] cough and cold preparations like we discussed. Return to the emergency department for new symptoms. Prescriptions: No Action ibuprofen 800 mg tablet 800 mg PO Q8H PRN (Reason: pain) Qty: 30 0RF benzonatate 100 mg capsule 100 mg PO TID PRN (Reason: cough) Qty: 21 1RF codeine-guaifenesin 7.5-225 mg/5 mL liquid 7.5 ml PO Q4-6H PRN (Reason: cold symptoms, cough) Qty: 473 0RF albuterol sulfate 90 mcg/actuation aerosol powdr breath activated 1 inh inhalation Q4-6H PRN (Reason: shortness of breath or wheezing) Qty: 1 3RF prednisone 20 mg tablet 20 mg PO DAILY Qty: 4 0RF ondansetron 4 mg tablet,disintegrating 4 mg PO Q8H PRN (Reason: nausea and vomiting) Qty: 10 0RF omeprazole 20 mg capsule,delayed release(DR/EC) 20 mg PO DAILY Qty: 14 0RF Paxlovid 300 mg (150 mg x 2)-100 mg tablets,dose pack See Rx Instructions .ROUTE .COMPLEX Qty: 30 0RF Rx Instructions: take TWO 150 mg tablets of nirmatrelvir with ONE 100 mg tablet of ritonavir twice daily for 5 days cetirizine-pseudoephedrine 5-120 mg tablet extended release 12 hr 1 tab PO BID PRN (Reason: nasal congestion) Qty: 20 0RF fluticasone propionate 50 mcg/actuation spray,suspension 1 spray intranasal DAILY Qty: 16 0RF Rx Instructions: administer into each nostril Stand Alone Forms: Patient Portal/API
[2023-10-08 09:28] LABS: COVID19 -Nasal RAPID Negative (Negative)
== END 2023-10-08 09:55 | disposition home or self-care (01) ==
PROVIDERS: Emergency Provider Emergency Medicine
DX: J06.9 Acute upper respiratory infection, unspecified (principal); Z11.52 Encounter for screening for COVID-19
CPT/HCPCS: 87635; 99281; 99282; C9803

== ENCOUNTER → 2023-10-26 13:55 | Outpatient (CLI) | payer OTHER, SELFPAY ==
--- NOTE | 2023-10-26 13:56 | DI.RAD.S_ITS ---
PROCEDURE: XR CHEST 2V INDICATIONS: Cough x 1 week TECHNIQUE: 2 views of the chest were acquired. COMPARISON: [facility], CR, XR CHEST 2V, 07/17/2023, 18:11. FINDINGS: Surgical changes and devices: None. Lungs and pleura: Lungs are clear. No pleural effusions or pneumothorax. Mediastinum: Mediastinal contours are normal. Heart size is normal. Bones and chest wall: No suspicious bony abnormalities. Soft tissues appear unremarkable. IMPRESSION: No acute pulmonary process. Dictated by: Eula Cesar M.D. on 10/26/2023 at 16:26 Approved by: Eula Cesar M.D. on 10/26/2023 at 16:26
== END ==
PROVIDERS: Referring Provider Physician Assistant; Visit Provider Physician Assistant
DX: R05.9 Cough, unspecified (principal)
CPT/HCPCS: 71046

== ENCOUNTER → 2024-07-17 10:14 | Outpatient (CLI) | payer OTHER, SELFPAY | PROVIDERS: Visit Provider Nurse Practitioner Family | DX: N94.89 Other specified conditions associated with female genital organs and menstrual cycle (principal); R30.0 Dysuria; R35.0 Frequency of micturition | CPT/HCPCS: 87086; 87210 ==

== ENCOUNTER → 2024-07-17 11:59 | Outpatient (CLI) | payer OTHER, SELFPAY ==
[2024-07-17 15:37] LABS: Urine N gonorrhoeae NOT DETECTED
[2024-07-17 16:03] LABS: Urine Chlamydia NOT DETECTED
[2024-07-17 18:13] LABS: HIV 1 & 2 Ab/Ag 4th Gen Combo NEGATIVE (NEGATIVE); Hep C Virus Ab w/Reflex Quant NEGATIVE s/c (NEGATIVE); Hepatitis B Surface Antigen NEGATIVE s/c (NEGATIVE)
[2024-07-18 02:36] LABS: HSV 2 IGG AB < 0.91 index (0.00-0.90)
[2024-07-18 06:11] LABS: RPR Screen Non Reactive (Non Reactive)
== END ==
PROVIDERS: Referring Provider Nurse Practitioner Family; Visit Provider Nurse Practitioner Family
DX: R35.0 Frequency of micturition (principal)
CPT/HCPCS: 36415; 86592; 86695; 86696; 86803; 87086; 87210; 87340; 87389; 87491; 87591

== ENCOUNTER → 2025-05-03 18:45 | Outpatient (CLI) | payer OTHER, SELFPAY ==
[2025-05-03 20:00] LABS: Influenza A - CEPHEID Flu A NEGATIVE (NEGATIVE); Influenza B - CEPHEID Flu B NEGATIVE (NEGATIVE); Respiratory Syncytial Virus Negative (Negative)
[2025-05-03 20:03] LABS: COVID-19 CEPHEID 4-PLEX PCR Negative (Negative)
== END ==
PROVIDERS: Visit Provider Chiropractor
DX: J02.9 Acute pharyngitis, unspecified (principal); R05.1 Acute cough
CPT/HCPCS: 0241U; 87070

== ENCOUNTER 2025-05-14 19:05 | Emergency (ER) | payer OTHER, SELFPAY ==
[2025-05-14 19:32] VITALS: BP 124/60; PULSE 127; RESP 24; TEMP 37.5; O2SAT 99; BMI 43.0
--- NOTE | 2025-05-14 19:50 | DI.RAD.S_ITS ---
PROCEDURE: XR CHEST 1V INDICATIONS: Shortness of breath TECHNIQUE: One view of the chest was acquired. COMPARISON: [facility], CR, XR CHEST 2V, 10/26/2023, 14:05. FINDINGS: Surgical changes and devices: None. Lungs and pleura: Lungs are clear. No pleural effusions or pneumothorax. Mediastinum: Mediastinal contours appear normal. Heart size is normal. Bones and chest wall: No suspicious bony lesions. Overlying soft tissues appear unremarkable. IMPRESSION: No acute pulmonary process. Dictated by: Eula Cesar M.D. on 05/14/2025 at 20:29 Approved by: Eula Cesar M.D. on 05/14/2025 at 20:29
[2025-05-14 20:07] LABS: INR 1.2 (0.9-1.3); Prothrombin Time 13.2 SECONDS (9.4-12.5)
[2025-05-14 20:12] LABS: Alanine Aminotransferase 42 IU/L (<35); Albumin 4.1 g/dL (3.5-5.0); Albumin Globulin Ratio 1.1 (1.0-2.8); Alkaline Phosphatase 93 U/L (38-126); Aspartate Aminotransferase 68 IU/L (14-36); BUN Creatinine Ratio 17.9 (6-22); Bilirubin Total 0.8 mg/dL (0.2-1.3); Blood Urea Nitrogen 14 mg/dL (7-17); Calcium 8.1 mg/dL (8.4-10.2); Carbon Dioxide 24 mmol/L (22-32); Chloride 100 mmol/L (98-107); Estimated Glomerular Filt Rate > 60 mL/min (>60); Globulin 3.9 g/dL (1.7-4.1); Glucose 102 mg/dL (70-99); HEMOLYSIS < 15 (0-50); Potassium 4.3 mmol/L (3.4-5.1); Sodium 133 mmol/L (137-145)
[2025-05-14 20:13] LABS: Hematocrit 26.5 % (36-46); Hemoglobin 7.8 g/dL (12.0-16.0); Mean Corpuscular HGB Conc 29.3 % (30-36); Mean Corpuscular Hemoglobin 17.7 PG (26-34); Mean Corpuscular Volume 60.6 fL (80-100); Platelet Count 353 X10^3/uL (150-400); Red Blood Cell Count 4.38 X10^6/uL (4.0-5.2); Red Cell Distribution Width 19.7 % (11.6-14.8); White Blood Cell Count 6.1 X10^3/uL (4.5-11.0)
[2025-05-14 20:16] LABS: Add Manual Diff / Slide Review YES
[2025-05-14 20:24] LABS: NT-proBNP (BNP-Adult 18+) 20 pg/mL (<125); Troponin I < 0.012 ng/mL (0.01-0.034)
[2025-05-14 20:30] LABS: Neutrophils Absolute Manual 1647 /uL (3000-5900); Total Cells Counted 100
[2025-05-14 20:31] LABS: Anisocytosis 2+; Hypochromasia 1+; Microcytosis 2+; Platelet Estimate Adequate on smear
--- NOTE | 2025-05-15 04:31 | ED_ITS ---
HPI - URI/Sore Throat General Chief Complaint: Upper Respiratory Symptoms Stated Complaint: SOB/When cough head hurts Time Seen by Provider: 05/15/25 04:15 Source: patient Mode of arrival: Ambulatory History of Present Illness HPI Narrative: 44-year-old female with 2 weeks duration of cough initially productive now dry, was treated for ?bronchitis? with a course of azithromycin from walk-in clinic that in not seem to be helping, presented again to walk-in clinic was told that she might be having allergies, prescribed Flonase nasal inhaler, and is taking Claritin D. Still having ongoing cough and shortness of breath. Related Data Previous Rx's ?Medication ?Instructions ?Recorded prednisone 20 mg tablet 40 mg (2 x 20 mg) PO DAILY 5 days 05/15/25 #10 tabs Allergies Allergy/AdvReac Type Severity Reaction Status Date / Time Sulfa (Sulfonamide Allergy Unknown Hives Verified 05/12/25 12:02 Antibiotics) levofloxacin (From LEVAQUIN) AdvReac Unknown abdominal Verified 05/12/25 12:02 discomfort Patient History Medical History (Updated 05/15/25 @ 05:31 by Santosh Parks MD) Asthma Surgical History History of Hx of tubal ligation Family History Mother Age: 64 Diabetes mellitus Sister Age: 44 Abnormal thyroid function test Social History Smoking Status: Current every day smoker Smoking Status: Current every day smoker alcohol intake frequency: holidays/special occasions only Exam Narrative Exam Narrative: GENERAL: Well-developed patient, in mild distress. HEAD: Atraumatic. Normocephalic. EYES: Pupils equal round and reactive. Extraocular motions intact. No scleral icterus. No injection or drainage. ENT: Nose without bleeding, purulent drainage. Throat without erythema, tonsillar hypertrophy or exudate. Airway patent. NECK: Trachea midline. Non tender CARDIOVASCULAR: Fast rate regular rhythm, without murmurs, gallops, or rubs. RESPIRATORY: Clear to auscultation. Breath sounds equal bilaterally. No wheezes, rales, or rhonchi. GASTROINTESTINAL: Abdomen soft, non-tender, nondistended. EXTREMITIES: No edema or joint tenderness. BACK: Nontender without deformity or crepitance. No flank tenderness. NEURO: AOx3. Motor functions grossly nonfocal SKIN: No rash or erythema of visible areas Initial Vital Signs Initial Vital Signs: Vital Signs Temperature 99.5 F 05/14/25 19:32 Pulse Rate 127 H 05/14/25 19:32 Respiratory Rate 24 05/14/25 19:32 Blood Pressure 124/60 05/14/25 19:32 Pulse Oximetry 99 05/14/25 19:32 Oxygen Delivery Method Room Air 05/14/25 19:32 Course Orders Ordered: ED Orders 05/15/25 05:24 Covid-19 + FLU A/B + RSV - PCR Stat Discontinued Medications Albuterol (Albuterol 2.5 Mg/3 Ml Neb (Adult)) 2.5 mg INH NOW ONE Stop: 05/15/25 04:16 Last Admin: 05/15/25 04:41 Dose: 2.5 mg Documented By: NEEMA Albuterol (Albuterol Hfa Mdi 60 Puff/8 Gm Inhaler (Covid Only)) 2 puff INH NOW ONE Stop: 05/15/25 05:40 Last Admin: 05/15/25 05:48 Dose: Not Given Documented By: GENESIS Albuterol (Albuterol Hfa Prepack) 1 box MISC DIRECTED ONE Stop: 05/15/25 05:47 Last Admin: 05/15/25 05:50 Dose: 1 box Documented By: NEEMA Sodium Chloride (Normal Saline 0.9%) 1,000 mls @ 1,000 mls/hr IV BOLUS ONE Stop: 05/15/25 05:27 Last Infusion: 05/15/25 05:56 Dose: Infused Documented By: Admin: 05/15/25 04:52 Dose: 1,000 mls/hr Documented By: GENESIS Prednisone (Prednisone 20 Mg Tablet) 60 mg PO NOW ONE Stop: 05/15/25 05:00 Last Admin: 05/15/25 05:13 Dose: 60 mg Documented By: GENESIS Vital Signs Vital signs: Vital Signs - 8 hr 05/15/25 04:48 05/15/25 04:56 05/15/25 05:00 Pulse Rate 112 H 106 H 103 H Respiratory Rate 18 21 Blood Pressure Pulse Oximetry 98 97 97 Oxygen Delivery Method Room Air Room Air 05/15/25 05:00 05/15/25 05:30 05/15/25 05:30 Pulse Rate 104 H Respiratory Rate 20 20 Blood Pressure 114/73 119/73 Pulse Oximetry 99 97 Oxygen Delivery Method Room Air Room Air 05/15/25 05:50 Pulse Rate 106 H Respiratory Rate 20 Blood Pressure Pulse Oximetry 96 Oxygen Delivery Method Room Air MDM - URI/Sore Throat Lab Data 05/14/25 19:50 05/14/25 19:50 Labs: Lab Results 05/14/25 05/15/25 Range/Units 19:50 05:24 WBC 6.1 (4.5-11.0) X10^3/uL RBC 4.38 (4.0-5.2) X10^6/uL Hgb 7.8 L (12.0-16.0) g/dL Hct 26.5 L (36-46) % MCV 60.6 L (80-100) fL MCH 17.7 L (26-34) PG MCHC 29.3 L (30-36) % RDW 19.7 H (11.6-14.8) % Plt Count 353 (150-400) X10^3/uL Neut % (Auto) Not Reportable Lymph % (Auto) Not Reportable [place] % (Auto) Not Reportable Eos % (Auto) Not Reportable Baso % (Auto) Not Reportable Lymph # (Auto) Not Reportable [place] # (Auto) Not Reportable Baso # (Auto) Not Reportable Total Counted 100 Seg Neutrophils % 27.0 L (38-70) % Lymphocytes % (Manual) 60.0 H (25-45) % Atypical Lymphs % 5.0 H ( - 0) % Monocytes % (Manual) 3.0 (2-11) % Eosinophils % (Manual) 5.0 H (2-4) % Neutrophils # (Manual) 1647 L (9922-9418) /uL Platelet Estimate Adequate on smear RBC Morphology See below Hypochromasia 1+ H Anisocytosis 2+ H Microcytosis 2+ H PT 13.2 H (9.4-12.5) SECONDS INR 1.2 (0.9-1.3) Sodium 133 L (137-145) mmol/L Potassium 4.3 (3.4-5.1) mmol/L Chloride 100 (98-107) mmol/L Carbon Dioxide 24 (22-32) mmol/L BUN 14 (7-17) mg/dL Creatinine 0.78 (0.52-1.04) mg/dL Estimated GFR > 60 (>60) mL/min BUN/Creatinine Ratio 17.9 (6-22) Glucose 102 H (70-99) mg/dL Lactate 1.0 (0.7-2.1) mmol/L Calcium 8.1 L (8.4-10.2) mg/dL Total Bilirubin 0.8 (0.2-1.3) mg/dL AST 68 H (14-36) IU/L ALT 42 H (<35) IU/L Alkaline Phosphatase 93 (38-126) U/L Troponin I < 0.012 (0.01-0.034) ng/mL NT-Pro-B Natriuret Pep 20 (<125) pg/mL Total Protein 8.0 (6.3-8.2) g/dL Albumin 4.1 (3.5-5.0) g/dL Globulin 3.9 (1.7-4.1) g/dL Albumin/Globulin Ratio 1.1 (1.0-2.8) SARS-CoV-2 (PCR) Negative (Negative) Influenza A (RT-PCR) Flu a negative (NEGATIVE) Influenza B (RT-PCR) Flu b negative (NEGATIVE) RSV (PCR) Negative (Negative) Imaging Data Chest x-ray: Radiologist's Impression: Close Chest X-Ray (Signed) Eula Cesar - 05/14/25 Launch?Image [address] [address] XRay Report Signed Patient: Minesh Olvera MR#: [id number] : 1980 Acct:[id number] Age/Sex: 44 / F Date of Service: 05/14/25 Loc: ED Accession Number: [id number] Procedure: XR chest 1V Ordering Provider: Santosh Parks MD PROCEDURE: XR CHEST 1V INDICATIONS: Shortness of breath TECHNIQUE: One view of the chest was acquired. COMPARISON: [facility], , XR CHEST 2V, 10/26/2023, 14:05. FINDINGS: Surgical changes and devices: None. Lungs and pleura: Lungs are clear. No pleural effusions or pneumothorax. Mediastinum: Mediastinal contours appear normal. Heart size is normal. Bones and chest wall: No suspicious bony lesions. Overlying soft tissues appear unremarkable. IMPRESSION: No acute pulmonary process. Dictated by: Eula Cesar M.D. on 05/14/2025 at 20:29 Approved by: Eula Cesar M.D. on 05/14/2025 at 20:29 [facility] Narrative Medical decision making narrative: 44-year-old female was ongoing cough for the last 2 weeks despite course of azithromycin antibiotic and use of Flonase nasal inhaler with oral antihistamine decongestant Claritin-D. Tachycardia noted on triage, normotensive, afebrile. Speaking in full sentences, no respiratory distress. Chest x-ray showed no acute changes. See radiology report. Possible bronchospasm related dyspnea, oral prednisone 60 mg given. Prescription sent to her pharmacy. Albuterol inhaler discharge with spacer for use this next week and then as needed. Symptoms improved. Discharged home with family. Return precautions discussed. Discharge Plan Departure Patient Disposition: Home Clinical Impression: Cough, Dyspnea Activity Restrictions/Additional Instructions: Ongoing cough for the last couple of weeks with increasing shortness of breath. Prior course of oral azithromycin antibiotic. Prior use of antihistamines and nasal spray Flonase. Chest x-ray tonight without obvious acute changes. Increased heart rate initially noted, somewhat improved. Trial of bronchodilator albuterol. You seemed to feel better with the nebulized treatment. We will dispense albuterol inhaler with a spacer for you to use 2 puffs 4 times daily for a week and then as needed. Consider prednisone steroid to help with any bronchospasm that might be contributing to your symptoms. First dose of prednisone given in the emergency department. Prescription for further prednisone sent to your pharmacy. Take medications as directed. Recheck with your regular provider later this week if symptoms are not improving. Return earlier to this/nearest emergency department for any change worsening symptoms or any concerns prior. Prescriptions: New prednisone 20 mg tablet 40 mg PO DAILY 5 Days Qty: 10 0RF Referrals: Miscellaneous,DoctorMD [Primary Care Provider, Medical] Stand Alone Forms: Patient Portal/API
[2025-05-15] MEDS: ALBUTEROL 2.5 MG/3 ML NEB (ADULT) INH (04:41)
[2025-05-15 04:48] VITALS: PULSE 112; RESP 18; O2SAT 98
[2025-05-15] MEDS: SODIUM CHLORIDE 0.9% 1,000 ML 1000 ML IV (04:52)
[2025-05-15 04:56] VITALS: PULSE 106; O2SAT 97
[2025-05-15 05:00] VITALS: BP 114/73; PULSE 103; RESP 21; O2SAT 97
[2025-05-15] MEDS: predniSONE 20 MG TABLET 60 MG PO (05:13)
[2025-05-15 05:30] VITALS: BP 119/73; PULSE 104; RESP 20; O2SAT 97; O2SAT 99
[2025-05-15 05:50] VITALS: PULSE 106; RESP 20; O2SAT 96
[2025-05-15] MEDS: ALBUTEROL HFA PREPACK 1 BOX MISC (05:50)
[2025-05-15 06:07] LABS: Influenza A - CEPHEID Flu A NEGATIVE (NEGATIVE); Influenza B - CEPHEID Flu B NEGATIVE (NEGATIVE); Respiratory Syncytial Virus Negative (Negative)
[2025-05-15 06:18] LABS: COVID-19 CEPHEID 4-PLEX PCR Negative (Negative)
== END 2025-05-15 05:40 | disposition home or self-care (01) ==
PROVIDERS: Emergency Provider Emergency Medicine
DX: R05.9 Cough, unspecified (principal); R06.00 Dyspnea, unspecified; R00.0 Tachycardia, unspecified
CPT/HCPCS: 0241U; 36415; 71045; 80053; 83605; 83880; 84484; 85007; 85025; 85610; 94640; 96360; 99284; A9270; J7613

== ENCOUNTER 2025-05-23 09:06 | Emergency (ER) | payer OTHER, SELFPAY ==
[2025-05-23] VITALS (11 sets, daily range): BP systolic 97–117; BP diastolic 56–79; PULSE 96–131; RESP 13–34; TEMP 37.3; O2SAT 92–97; BMI 43.0
--- NOTE | 2025-05-23 09:10 | ED.GENADULT ---
HPI - General Adult General Chief complaint: Dizziness Stated complaint: Still sick after her last ER visit Time Seen by Provider: 05/23/25 09:09 Source: patient, RN notes reviewed and old records reviewed Mode of arrival: Ambulatory Limitations: no limitations History of Present Illness HPI narrative: 44-year-old female no reported medical issues who was recently here for cough was diagnosed with cough and dyspnea was discharged with prednisone and albuterol inhalers states she has not had much improvement continues to feel short of breath. Denies any fevers or chills she has had some nasal congestion drainage. She states she feels little bit short of breath. She was had a persistent dry cough. Patient states did have little bit of chest discomfort on the right side when ambulating in the other day. She was noted that she feels lightheaded particularly when she was up in the shower or sometimes when she was exerting herself. She has not had any other episodes of chest pain or discomfort. She has not had any syncope. No chills. No nausea or vomiting. She notes decreased appetite. States no abdominal back or flank pain. No other GI or urinary symptoms. She denies any new swelling of extremities. Patient states she does not take any daily medications. She has completed the prednisone which she states has a little bit helpful. She states the albuterol inhaler has not been helpful she has not used it in the last day. Reports allergies to sulfa and Levaquin. States had a remotely. No tobacco, no regular alcohol, no recreational drugs. She does not report any cardiac, pulmonary, embolic or vascular history and her family notes her mom from insulin-dependent diabetes complication. Related Data Allergies Allergy/AdvReac Type Severity Reaction Status Date / Time Sulfa (Sulfonamide Allergy Unknown Hives Verified 05/23/25 09:13 Antibiotics) levofloxacin (From LEVAQUIN) AdvReac Unknown abdominal Verified 05/23/25 09:13 discomfort Review of Systems Review of Systems ROS Unobtainable: All systems reviewed & are unremarkable except as noted in HPI and below Patient History Medical History (Updated 05/23/25 @ 11:12 by Rosio Perez DO) Asthma Surgical History History of Hx of tubal ligation Family History Mother Age: 64 Diabetes mellitus Sister Age: 44 Abnormal thyroid function test alcohol intake frequency: holidays/special occasions only Exam Narrative Exam Narrative: GEN: Obese, well appearing female, alert and oriented x 3, patient appears to be in mild distress. HEENT: Atraumatic, pupils are equal round reactive to light, extraocular movements are intact, nares are clear, TMs are clear with no fluid, there is no conjunctival pallor. Throat is clear without any exudates, erythema, tonsillar enlargement or uvular deviation, patient was some mild cobblestoning. HEART: Patient was tachycardic but regular rate and rhythm without murmur, clicks, rubs. Pulses are equal in upper and lower extremities. No edema bilateral lower extremities. LUNGS:Lungs clear to auscultation, no wheezes, rales, crackles, chest moves symmetrically, mild tachypnea ABD:bowel sounds normal, soft, non-tender, no guarding, rebound, rigidity, no masses noted, no hepatosplenomegaly MSCL: Non-tender, no muscle atrophy, muscles strength 5/5 upper and lower extremities, full range of motion, normal gait NEURO:CN 2-12 intact, sensation normal. Initial Vital Signs Initial Vital Signs: Vital Signs Temperature 99.1 F 05/23/25 09:13 Pulse Rate 131 H 05/23/25 09:13 Respiratory Rate 18 05/23/25 09:13 Blood Pressure 112/79 05/23/25 09:13 Pulse Oximetry 96 05/23/25 09:13 Oxygen Delivery Method Room Air 05/23/25 09:13 Course Orders Ordered: ED Orders 05/23/25 09:22 XR chest 1V Stat EKG-12 Lead Stat 05/23/25 09:25 Complete Blood Count AUTO DIFF Stat Comprehensive Metabolic Panel Stat D Dimer Stat Lactate (Lactic Acid) Stat Lipase Stat NT-proBNP (BNP-Adult 18+) Stat PTT Partial Thromboplastin Luis M Stat Prothrombin Time INR Stat Troponin & CK Cardiac Panel Stat 05/23/25 09:54 CT angio chest PE protocol Stat 05/23/25 10:00 Urine Microscopic Stat 05/23/25 11:48 Trop I [Troponin I] Stat Discontinued Medications Sodium Chloride (Normal Saline 0.9%) 1,000 mls @ 1,000 mls/hr IV BOLUS ONE Stop: 05/23/25 10:20 Last Infusion: 05/23/25 10:34 Dose: Infused Documented By: Admin: 05/23/25 09:30 Dose: 1,000 mls/hr Documented By: Vital Signs Vital signs: Vital Signs - 8 hr 05/23/25 09:13 05/23/25 09:18 05/23/25 09:30 Temperature 99.1 F Pulse Rate 131 H 127 H 126 H Respiratory Rate 18 29 H 34 H Blood Pressure 112/79 Pulse Oximetry 96 93 96 Oxygen Delivery Method Room Air 05/23/25 10:11 05/23/25 10:12 05/23/25 10:12 Temperature Pulse Rate 121 H 117 H Respiratory Rate 16 13 Blood Pressure 117/69 Pulse Oximetry 93 95 Oxygen Delivery Method Room Air 05/23/25 10:30 05/23/25 10:30 05/23/25 10:38 Temperature Pulse Rate 100 H Respiratory Rate 28 H Blood Pressure 104/56 L 109/58 L Pulse Oximetry 93 Oxygen Delivery Method Room Air 05/23/25 10:38 05/23/25 11:00 05/23/25 11:00 Temperature Pulse Rate 109 H 99 H Respiratory Rate 28 H 25 H Blood Pressure 97/58 L Pulse Oximetry 94 92 Oxygen Delivery Method 05/23/25 11:22 05/23/25 11:22 05/23/25 11:30 Temperature Pulse Rate 107 H 96 H Respiratory Rate 21 28 H Blood Pressure 112/58 L Pulse Oximetry 96 96 Oxygen Delivery Method Room Air 05/23/25 11:30 05/23/25 12:45 Temperature Pulse Rate 113 H Respiratory Rate Blood Pressure 114/56 L 103/66 Pulse Oximetry 97 Oxygen Delivery Method Room Air Medical Decision Making Lab Data 05/23/25 09:25 05/23/25 09:25 Labs: Lab Results 05/23/25 05/23/25 05/23/25 Range/Units 09:25 10:00 11:48 WBC 10.9 (4.5-11.0) X10^3/uL RBC 4.71 (4.0-5.2) X10^6/uL Hgb 8.4 L (12.0-16.0) g/dL Hct 28.6 L (36-46) % MCV 60.7 L (80-100) fL MCH 17.9 L (26-34) PG MCHC 29.4 L (30-36) % RDW 20.1 H (11.6-14.8) % Plt Count 320 (150-400) X10^3/uL Neut % (Auto) Not Reportable Lymph % (Auto) Not Reportable [place] % (Auto) Not Reportable Eos % (Auto) Not Reportable Baso % (Auto) Not Reportable Lymph # (Auto) Not Reportable [place] # (Auto) Not Reportable Baso # (Auto) Not Reportable Total Counted 100 Seg Neutrophils % 40.0 (38-70) % Band Neutrophils % 1.0 L (3-7) % Lymphocytes % (Manual) 55.0 H (25-45) % Monocytes % (Manual) 4.0 (2-11) % Neutrophils # (Manual) 4469 (2483-4821) /uL Smudge Cells 1+ H RBC Morphology sb Hypochromasia 1+ H Anisocytosis 1+ H Microcytosis 1+ H PT 13.8 H (9.4-12.5) SECONDS INR 1.2 (0.9-1.3) APTT 27 (25.1-36.5) SECONDS D-Dimer 2005 H (<500) ng/ml Sodium 135 L (137-145) mmol/L Potassium 3.7 (3.4-5.1) mmol/L Chloride 103 (98-107) mmol/L Carbon Dioxide 25 (22-32) mmol/L BUN 18 H (7-17) mg/dL Creatinine 0.87 (0.52-1.04) mg/dL Estimated GFR > 60 (>60) mL/min BUN/Creatinine Ratio 20.7 (6-22) Glucose 135 H (70-99) mg/dL Lactate 1.6 (0.7-2.1) mmol/L Calcium 8.0 L (8.4-10.2) mg/dL Total Bilirubin 0.8 (0.2-1.3) mg/dL AST 62 H (14-36) IU/L ALT 47 H (<35) IU/L Alkaline Phosphatase 80 (38-126) U/L Total Creatine Kinase 30 (30-135) U/L Troponin I < 0.012 < 0.012 (0.01-0.034) ng/mL NT-Pro-B Natriuret Pep 26 (<125) pg/mL Total Protein 7.5 (6.3-8.2) g/dL Albumin 3.6 (3.5-5.0) g/dL Globulin 3.9 (1.7-4.1) g/dL Albumin/Globulin Ratio 0.9 L (1.0-2.8) Lipase 121 (23-300) U/L Urine RBC 0-1/hpf (0-5/HPF) Urine WBC 1-5/hpf (0-5/HPF) Ur Squamous Epith Cells 5-10 /hpf H (0-5/HPF) Urine Bacteria Occasional (0-1) (None) Urine Mucus 2+ H (Negative) Ur Culture Indicated? Cult not indicated Vol Urine Centrifuged 10ml (spun) ECG Data Attestation: I personally reviewed and interpreted this ECG as follows: Prior ECG tracings: not available for review Interpretation: Sinus tachycardia rate of 127 OH 114 QRS 84 QTC of 441, no acute ST elevation or depression patient does have S1-T3 but no Q3 on exam does have what appears to be biphasic P wave but only lead 3. MDM Narrative Medical decision making narrative: 44-year-old female with persistent shortness of breath, cough after upper respiratory infection had visit on 05/15/2025 with 2 weeks of symptoms was treated with the azithromycin, inhaler and decongestion he was tachycardic in triage was discharged with prednisone and albuterol inhaler has continued to not have any improvement. Patient is noted to be tachycardic upon arrival. Lungs are clear to auscultation. Differential includes myocarditis, pulmonary embolism, pneumonia, ACS. Labs, EKG, chest x-ray were obtained. EKG shows sinus tachycardia rate of [address] changes appreciated no prior for comparison. Labs, white count of 10.9 hemoglobin is 8.4 with 7.8 on 07/14/2025 patient has microcytic platelets of 320. Prior to that patient was 11 in 2017 her hemoglobin. INR is 1.2 PTT is 27, D-dimer is 2005 based on patient's symptoms CT angio was obtained. Sodium is 135 BUN 18 electrolytes are otherwise appropriate creatinine 0.87 glucose is 135 calcium 8 AST ALT are mildly elevated at 62 and 47 fairly similar from May 14, 2025, troponins less than 0.012 with a BNP of 26. Lipase is 121. Repeat troponins less than 0.012 Chest x-ray shows no acute cardiopulmonary abnormality. PACS downtime, report printed. CT angio chest, EMR report is not coming through PACs, called Dr. Bonilla who read CTA states notes splenomegaly but no other acute process, no PE, no pneumonia. AP dimension of spleen approximately 15cm. Patient received fluids. Patient was tachycardia improved. Discussed with the patient she has been anemic for some time she states she has a regular but heavy periods, imaging did show some splenomegaly. She has a follow up appointment in June with primary care. I think some of her symptoms are related to this but with her splenomegaly I do think she would benefit from follow up. We discussed adding iron supplementation for the short term she does not sound like she was having any active bleeding currently. Hemoglobins are stable from April. Patient has a follow up appointment coming but not till later in June home health care social worker reached out and patient has a new appointment scheduled I think she would benefit from further evaluation. She feels somewhat improved here in the department. Discharge Plan Departure Patient Disposition: Home Clinical Impression: Dyspnea, Anemia Instructions: Anemia Activity Restrictions/Additional Instructions: Your workup today shows you are anemic with a hemoglobin that is 8, has also noted that your spleen is enlarged on your CT imaging. I want you to follow up with your primary care physician for further evaluation, I do recommend that you start taking an iron supplement daily but you may need additional workup and treatment. I think your shortness of breath is related to your low hemoglobin. You have an appointment scheduled with Dr. Ramirez on 05/28/25 at 0830am. Please show up 15 minutes early to your appointment. If you are having worsening symptoms please return to the emergency department, worsening lightheadedness, any passing out, new chest pain, increasing shortness of breath, any new swelling of your extremities, vomiting, new black or bloody stools or other new or concerning changes. Referrals: ana peterson [Other] jewel, [Other] Zena Ramirez MD [Physician, Family Practice] Miscellaneous,DoctorMD [Non-Staff, Medical] Mesha Paredes ARNP [Non-Staff, Nursing] Stand Alone Forms: Patient Portal/API, Work Release Note
--- NOTE | 2025-05-23 09:22 | EKG_ITS ---
[place] [address] [address], [place] [address] Test Date: 2025-05-23 Pat Name: Minesh Olvera Department: Room: Gender: Female Staff Radiologist: JAYCE : 1980 Requested By: Order Number: [id number] Reading MD: Aguilar King MD Measurements Intervals [place] Rate: 127 P: 18 WV: 114 QRS: -27 QRSD: 84 T: 1 QT: 304 QTc: 441 Interpretive Statements Sinus tachycardia Electronically Signed On 05-23-2025 9:40:31 PDT by Aguilar King MD
--- NOTE | 2025-05-23 09:22 | DI.RAD.S_ITS ---
PROCEDURE: XR CHEST 1V INDICATIONS: sob, cough, tachycardia TECHNIQUE: One view of the chest was acquired. COMPARISON: [facility], CR, XR CHEST 1V, 05/14/2025, 20:11. FINDINGS: Surgical changes and devices: None. Lungs and pleura: Lungs are clear. No pleural effusions or pneumothorax. Mediastinum: Mediastinal contours appear normal. Heart size is normal. Bones and chest wall: No suspicious bony lesions. Overlying soft tissues appear unremarkable. IMPRESSION: No acute cardiopulmonary abnormality is seen. Dictated by: Eder Bonilla M.D. on 05/23/2025 at 9:40 Approved by: Eder Bonilla M.D. on 05/23/2025 at 9:41
[2025-05-23] MEDS: SODIUM CHLORIDE 0.9% 1,000 ML 1000 ML IV (09:30)
--- NOTE | 2025-05-23 09:35 | PC.NURSE ---
Pt awake and alert. Ambulatory to room with steady gait. Denies chest pain.
[2025-05-23 09:40] LABS: INR 1.2 (0.9-1.3); Prothrombin Time 13.8 SECONDS (9.4-12.5)
[2025-05-23 09:43] LABS: Alanine Aminotransferase 47 IU/L (<35); Albumin 3.6 g/dL (3.5-5.0); Albumin Globulin Ratio 0.9 (1.0-2.8); Alkaline Phosphatase 80 U/L (38-126); Blood Urea Nitrogen 18 mg/dL (7-17); Calcium 8.0 mg/dL (8.4-10.2); Carbon Dioxide 25 mmol/L (22-32); Chloride 103 mmol/L (98-107); Creatine Kinase 30 U/L (30-135); Estimated Glomerular Filt Rate > 60 mL/min (>60); Globulin 3.9 g/dL (1.7-4.1); Glucose 135 mg/dL (70-99); HEMOLYSIS < 15 (0-50); Lipase 121 U/L (23-300); PTT Partial Thromboplastin Tim 27 SECONDS (25.1-36.5); Potassium 3.7 mmol/L (3.4-5.1); Sodium 135 mmol/L (137-145); Total Protein 7.5 g/dL (6.3-8.2)
[2025-05-23 09:44] LABS: Lactate (Lactic Acid) 1.6 mmol/L (0.7-2.1)
--- NOTE | 2025-05-23 09:54 | DI.CT.S_ITS ---
PROCEDURE: CT ANGIO CHEST PE PROTOCOL INDICATIONS: sob, worse with exertion, prior uri, tachycadia, +dimer. TECHNIQUE: After the administration of intravenous contrast, 2 mm thick sections acquired from the pulmonary apices to the posterior costophrenic angles. 3-dimensional maximum intensity projection (MIP) coronal and sagittal reformats were then acquired through the thorax. For radiation dose reduction, the following was used: automated exposure control, adjustment of mA and/or kV according to patient size. COMPARISON: None. FINDINGS: Image quality: Diagnostic. Pulmonary arteries: Pulmonary arteries are normal in size, and demonstrate no intraluminal filling defects to suggest central pulmonary embolism. Lower Neck: No enlarged lymph nodes. Thyroid: No thyroid nodules which require sonographic follow up, per consensus guidelines. Axillae: No enlarged lymph nodes. Chest Wall: Unremarkable. Bones: Unremarkable. Lungs and Pleura: No pneumothorax or pleural effusions. No consolidation or suspicious nodules. Heart: Heart size is normal. No pericardial effusion. Thoracic Vessels: No aortic aneurysm. Mediastinum and Any: No enlarged lymph nodes. Esophagus: No wall thickening. No hiatal hernia. Upper Abdomen: Splenomegaly. AP dimension of the spleen is approximately 15 cm. IMPRESSION: No pulmonary embolus. No acute cardiopulmonary process. Splenomegaly. Dictated by: Eder Bonilla M.D. on 05/23/2025 at 10:28 Approved by: Eder Bonilla M.D. on 05/23/2025 at 10:31
[2025-05-23 09:55] LABS: NT-proBNP (BNP-Adult 18+) 26 pg/mL (<125); Troponin I < 0.012 ng/mL (0.01-0.034)
[2025-05-23 09:59] LABS: Hematocrit 28.6 % (36-46); Hemoglobin 8.4 g/dL (12.0-16.0); Mean Corpuscular HGB Conc 29.4 % (30-36); Mean Corpuscular Hemoglobin 17.9 PG (26-34); Mean Corpuscular Volume 60.7 fL (80-100); Platelet Count 320 X10^3/uL (150-400)
[2025-05-23 10:02] LABS: Add Manual Diff / Slide Review YES
[2025-05-23 10:30] LABS: Culture Indicated Urine Cult Not Indicated
[2025-05-23 11:20] LABS: Anisocytosis 1+; Band Neutrophils Percent 1.0 % (3-7); Hypochromasia 1+; Lymphocytes Percent Manual 55.0 % (25-45); Microcytosis 1+; Monocytes Percent Manual 4.0 % (2-11); Neutrophils Absolute Manual 4469 /uL (3000-5900); RBC Morphology sb; Segmented Neutrophils Percent 40.0 % (38-70); Smudge Cells 1+; Total Cells Counted 100
--- NOTE | 2025-05-23 12:08 | CM.SWNOTE ---
ED RAIL SIGNAL MECHANIC Assessment Note: Pt is a 44yo female, resident of [place], is seen in the ED for suspected anemia. Pt's Primary Care Provider is Dr. Jocy Yee (not yet established) and insurance is [employer]. Reviewed chart and discussed with multidisciplinary team pt's medical status and initial discharge needs. Per ED Provider, pt would benefit from sooner PCP appt to follow up on suspected chronic anemia. RAIL SIGNAL MECHANIC entered room to meet with patient, introduced self and role. It is reported that patient has an appointment with her new PCP in June and is open to seeing a different provider to be seen sooner. RAIL SIGNAL MECHANIC calls [facility] and scheduled pt for an appt with Dr. Ramirez on 05/28 at 8:30am, check in at 8:00am. Pt provided with printed appointment reminder. RAIL SIGNAL MECHANIC reviews this with ED provider Dr. 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 Plan: Pt to discharge home and follow up with new PCP on 05/28 at 8:30am. BRENT Salazar
[2025-05-23 12:26] LABS: Troponin I < 0.012 ng/mL (0.01-0.034)
== END 2025-05-23 12:45 | disposition home or self-care (01) ==
PROVIDERS: Emergency Provider Emergency Medicine
DX: R06.00 Dyspnea, unspecified (principal); D64.9 Anemia, unspecified; R00.0 Tachycardia, unspecified; R07.9 Chest pain, unspecified; R05.9 Cough, unspecified
CPT/HCPCS: 36415; 71045; 71275; 80053; 81015; 82550; 83605; 83690; 83880; 84484; 85007; 85025; 85379; 85610; 85730; 93005; 93010; 96360; 99284; Q9967

== ENCOUNTER 2025-05-25 14:53 | Observation (INO) | payer OTHER, SELFPAY ==
[2025-05-25] VITALS (20 sets, daily range): BP systolic 92–122; BP diastolic 51–73; PULSE 97–120; RESP 5–35; TEMP 37.1; O2SAT 94–99; BMI 43.0
--- NOTE | 2025-05-25 15:41 | DI.RAD.S_ITS ---
PROCEDURE: XR CHEST 1V INDICATIONS: Chest Pain TECHNIQUE: One view of the chest was acquired. COMPARISON: [facility], CR, XR CHEST 1V, 05/23/2025, 9:24. [facility], CR, XR CHEST 1V, 05/14/2025, 20:11. FINDINGS AND IMPRESSION: Low lung volumes. No dense airspace disease or pleural effusion on this single view study. Normal heart size. No significant osseous abnormality. Dictated by: Silas Dutta M.D. on 05/25/2025 at 15:08 Approved by: Silas Dutta M.D. on 05/25/2025 at 15:08
--- NOTE | 2025-05-25 15:49 | EKG_ITS ---
[address] [address] Test Date: 2025-05-25 Pat Name: Minesh Olvera Department: Room: Gender: Female Handicapped Teacher: JAYCE : 1980 Requested By: Order Number: [id number] Reading MD: Aguilar King MD Measurements Intervals [place] Rate: 102 P: 1 [place]: 130 QRS: -17 QRSD: 76 T: -9 QT: 322 QTc: 419 Interpretive Statements Sinus tachycardia Electronically Signed On 05-26-2025 7:55:23 PDT by Aguilar King MD
[2025-05-25 16:17] LABS: Add Manual Diff / Slide Review NO; Hematocrit 25.5 % (36-46); Hemoglobin 7.6 g/dL (12.0-16.0); Lymphocytes Absolute Auto 3400 /uL (1100-4500); Mean Corpuscular HGB Conc 29.9 % (30-36); Mean Corpuscular Hemoglobin 17.9 PG (26-34); Mean Corpuscular Volume 60.0 fL (80-100); Platelet Count 269 X10^3/uL (150-400)
[2025-05-25 16:24] LABS: INR 1.2 (0.9-1.3); Prothrombin Time 13.5 SECONDS (9.4-12.5)
[2025-05-25 16:27] LABS: PTT Partial Thromboplastin Tim 31 SECONDS (25.1-36.5)
[2025-05-25 16:29] LABS: Alanine Aminotransferase 50 IU/L (<35); Albumin 3.3 g/dL (3.5-5.0); Albumin Globulin Ratio 0.9 (1.0-2.8); Alkaline Phosphatase 80 U/L (38-126); Blood Urea Nitrogen 15 mg/dL (7-17); Calcium 7.8 mg/dL (8.4-10.2); Carbon Dioxide 28 mmol/L (22-32); Chloride 102 mmol/L (98-107); Creatine Kinase 32 U/L (30-135); Estimated Glomerular Filt Rate > 60 mL/min (>60); Globulin 3.5 g/dL (1.7-4.1); Glucose 95 mg/dL (70-99); HEMOLYSIS < 15 (0-50); Lipase 76 U/L (23-300); Magnesium 2.2 mg/dL (1.6-2.3); Potassium 4.4 mmol/L (3.4-5.1); Sodium 133 mmol/L (137-145); Total Protein 6.8 g/dL (6.3-8.2)
[2025-05-25 16:40] LABS: NT-proBNP (BNP-Adult 18+) 31 pg/mL (<125); Troponin I < 0.012 ng/mL (0.01-0.034)
[2025-05-25 16:43] LABS: Anisocytosis 2+; Microcytosis 2+
[2025-05-25 16:44] LABS: Stomatocytes 1+
[2025-05-25 18:28] LABS: Culture Indicated Urine Cult Not Indicated
--- NOTE | 2025-05-25 19:41 | ED.BACK ---
HPI - Back Pain/Injury General Chief Complaint: Back Pain/Injury Stated Complaint: nauseas constipated pinching in side Time Seen by Provider: 05/25/25 18:34 Source: patient History of Present Illness HPI Narrative: 44-year-old female with recent ED visits here with upper respiratory infection symptoms, and dizziness, having intermittent right lower abdominal pain, worse again today, no specific injury recalled. No radiation to either leg. No painful urination or frequency of urination. Prior visit felt like she might pass out, no presyncope or syncopal symptoms today. She denies any emesis of blood or coffee grounds, no black or red stools. She denies bloody appearing urine. She denies recent vaginal bleeding although has fairly heavy periods. No nosebleeds or other external sources of bleeding known. Related Data Allergies Allergy/AdvReac Type Severity Reaction Status Date / Time Sulfa (Sulfonamide Allergy Unknown Hives Verified 05/25/25 15:31 Antibiotics) levofloxacin (From LEVAQUIN) AdvReac Unknown abdominal Verified 05/25/25 15:31 discomfort Patient History Medical History (Updated 05/26/25 @ 00:54 by Santosh Parks MD) Asthma Surgical History History of Hx of tubal ligation Family History Mother Age: 64 Diabetes mellitus Sister Age: 44 Abnormal thyroid function test Social History household members: spouse and children Smoking Status: Never smoker Smoking Status: Never smoker alcohol intake frequency: holidays/special occasions only Exam Narrative Exam Narrative: GENERAL: Well-developed patient, in mild distress. HEAD: Atraumatic. Normocephalic. EYES: Pupils equal round and reactive. Extraocular motions intact. No scleral icterus. No injection or drainage. ENT: Nose without bleeding, purulent drainage. Throat without erythema, tonsillar hypertrophy or exudate. Airway patent. NECK: Trachea midline. Non tender CARDIOVASCULAR: Fast regular rate, normal rhythm, without obvious murmurs. RESPIRATORY: Clear to auscultation. Breath sounds equal bilaterally. No wheezes, rales, or rhonchi. GASTROINTESTINAL: Abdomen soft, non-tender, nondistended. EXTREMITIES: No edema or joint tenderness. BACK: Nontender without deformity or crepitance. No flank tenderness. NEURO: AOx3. Motor functions grossly nonfocal. SKIN: No rash or erythema of visible areas Initial Vital Signs Initial Vital Signs: Vital Signs Temperature 98.8 F 05/25/25 15:31 Pulse Rate 115 H 05/25/25 15:31 Respiratory Rate 20 05/25/25 15:31 Blood Pressure 94/67 05/25/25 15:31 Pulse Oximetry 99 05/25/25 15:31 Oxygen Delivery Method Room Air 05/25/25 15:31 Course Orders Ordered: ED Orders 05/25/25 20:40 Hemoglobin and Hematocrit Stat 05/25/25 20:56 CT angio Abd/Pel GI Bleed Stat 05/25/25 21:15 Lactate (Lactic Acid) Stat Procalcitonin Stat Type and Screen Stat 05/25/25 22:03 Blood Culture Stat 05/25/25 23:53 Hemoglobin and Hematocrit Stat 05/26/25 00:52 PRBC [Packed Cells] Stat Acetaminophen (Acetaminophen 325 Mg Tablet) 650 mg PO Q6H PRN PRN Reason: Fever/Mild Pain (1-3) Hydrocodone Bitart/Acetaminophen (Hydrocodone/Acet 5/325 Tablet) 1 tab PO Q4H PRN PRN Reason: Pain, Moderate (4-6) Sodium Chloride (Normal Saline 0.9%) 1,000 mls @ 75 mls/hr IV CONT SARAI Naloxone HCl (Naloxone 0.4 Mg/Ml Vial) 0.2 mg IV Q2MIN PRN PRN Reason: Opiate Reversal Ondansetron HCl (Ondansetron 4 Mg/2 Ml Inj) 4 mg IV Q8HR PRN PRN Reason: Nausea And Vomiting Pantoprazole Sodium (Pantoprazole Dr 40 Mg Tablet) 40 mg PO 0700,2100 SARAI Discontinued Medications Sodium Chloride (Normal Saline 0.9%) 1,000 mls @ 1,000 mls/hr IV BOLUS ONE Stop: 05/25/25 21:58 Last Infusion: 05/25/25 23:44 Dose: Infused Documented By: Admin: 05/25/25 21:18 Dose: 1,000 mls/hr Documented By: DIANN Ceftriaxone Sodium 1,000 mg/ (Sodium Chloride) 100 mls @ 200 mls/hr IV NOW ONE Stop: 05/25/25 21:46 Last Infusion: 05/25/25 22:44 Dose: Infused Documented By: Admin: 05/25/25 22:09 Dose: 200 mls/hr Documented By: CLINT Ondansetron HCl (Ondansetron 4 Mg/2 Ml Inj) 4 mg IV NOW PRN PRN Reason: Nausea And Vomiting Ondansetron HCl (Ondansetron 4 Mg Odt) 4 mg PO NOW PRN PRN Reason: Nausea And Vomiting Pantoprazole Sodium (Pantoprazole 40 Mg Vial) 80 mg IV NOW ONE Stop: 05/25/25 21:02 Last Admin: 05/25/25 21:18 Dose: 80 mg Documented By: DIANN Vital Signs Vital signs: Vital Signs - 8 hr 05/25/25 21:30 05/25/25 21:54 05/25/25 21:54 Pulse Rate 120 H 113 H Respiratory Rate 26 H 35 H Blood Pressure 117/59 L Pulse Oximetry 96 97 Oxygen Delivery Method Room Air 05/25/25 22:00 05/25/25 22:00 05/25/25 22:30 Pulse Rate 104 H Respiratory Rate 33 H Blood Pressure 97/52 L 101/57 L Pulse Oximetry 95 Oxygen Delivery Method Room Air 05/25/25 22:30 05/25/25 23:00 05/25/25 23:00 Pulse Rate 99 H 97 H Respiratory Rate 23 22 Blood Pressure 100/60 Pulse Oximetry 95 94 Oxygen Delivery Method Room Air 05/25/25 23:30 05/25/25 23:30 05/26/25 00:02 Pulse Rate 98 H 106 H Respiratory Rate 23 27 H Blood Pressure 100/57 L Pulse Oximetry 96 95 Oxygen Delivery Method Room Air Room Air 05/26/25 00:03 05/26/25 00:03 05/26/25 00:30 Pulse Rate 100 H 104 H Respiratory Rate 21 26 H Blood Pressure 99/55 L Pulse Oximetry 95 98 Oxygen Delivery Method Room Air Room Air 05/26/25 00:30 05/26/25 01:00 05/26/25 01:00 Pulse Rate 106 H Respiratory Rate 35 H Blood Pressure 102/60 109/61 Pulse Oximetry 98 Oxygen Delivery Method Room Air MDM - Back Pain/Injury Lab Data Attestation: I reviewed the patient's lab results. Lab results narrative: White blood cell count 6900, hemoglobin 7.6, platelets 269,000. Sodium 133, potassium 4.4, serum CO2 28. BUN 15 with creatinine 0.76. Glucose normal. Transaminase mild, T bili and alkaline phosphatase normal. Troponin negative/unmeasurable. BNP not elevated. Urinalysis with bacteriuria but contaminated, repeat/cath urine requested. 05/25/25 23:53 05/25/25 15:53 Labs: Lab Results 05/25/25 05/25/25 05/25/25 Range/Units 15:53 18:14 19:52 WBC 6.9 (4.5-11.0) X10^3/uL RBC 4.26 (4.0-5.2) X10^6/uL Hgb 7.6 L (12.0-16.0) g/dL Hct 25.5 L (36-46) % MCV 60.0 L (80-100) fL MCH 17.9 L (26-34) PG MCHC 29.9 L (30-36) % RDW 20.3 H (11.6-14.8) % Plt Count 269 (150-400) X10^3/uL Neut % (Auto) 40.8 L (50-75) % Lymph % (Auto) 49.8 H (25-40) % [place] % (Auto) 5.8 (3-14) % Eos % (Auto) 2.6 (2-4) % Baso % (Auto) 1.0 (0-2) % Neut # (Auto) 2800 (1994-9391) /uL Lymph # (Auto) 3400 (1243-4361) /uL Gove # (Auto) 400 (0-900) /uL Eos # (Auto) 200 (0-450) /uL Baso # (Auto) 100 (0-100) /uL RBC Morphology See below Anisocytosis 2+ H Microcytosis 2+ H Stomatocytes 1+ H PT 13.5 H (9.4-12.5) SECONDS INR 1.2 (0.9-1.3) APTT 31 (25.1-36.5) SECONDS Sodium 133 L (137-145) mmol/L Potassium 4.4 (3.4-5.1) mmol/L Chloride 102 (98-107) mmol/L Carbon Dioxide 28 (22-32) mmol/L BUN 15 (7-17) mg/dL Creatinine 0.76 (0.52-1.04) mg/dL Estimated GFR > 60 (>60) mL/min BUN/Creatinine Ratio 19.7 (6-22) Glucose 95 (70-99) mg/dL Lactate (0.7-2.1) mmol/L Calcium 7.8 L (8.4-10.2) mg/dL Magnesium 2.2 (1.6-2.3) mg/dL Total Bilirubin 0.6 (0.2-1.3) mg/dL AST 64 H (14-36) IU/L ALT 50 H (<35) IU/L Alkaline Phosphatase 80 (38-126) U/L Total Creatine Kinase 32 (30-135) U/L Troponin I < 0.012 (0.01-0.034) ng/mL NT-Pro-B Natriuret Pep 31 (<125) pg/mL Total Protein 6.8 (6.3-8.2) g/dL Albumin 3.3 L (3.5-5.0) g/dL Globulin 3.5 (1.7-4.1) g/dL Albumin/Globulin Ratio 0.9 L (1.0-2.8) Lipase 76 (23-300) U/L Procalcitonin (<0.5) ng/mL Urine Color [place] Urine Appearance Clear Urine pH 5.5 (4.5-8.0) Ur Specific [place] 1.010 (1.000-1.035) Urine Protein Trace H (Negative) Urine Glucose (UA) Negative (Negative) g/dL Urine Ketones Trace H (NEGATIVE) Urine Occult Blood Negative (Negative) Urine Nitrate Negative (Negative) Urine Bilirubin Negative (NEGATIVE) Urine Urobilinogen 0.2 (0.2) E.U./dL Ur Leukocyte Esterase Negative (NEGATIVE) Urine RBC None seen None seen (0-5/HPF) Urine WBC 0-1/hpf None seen (0-5/HPF) Ur Squamous Epith Cells 5-10 /hpf H 1-5 /hpf (0-5/HPF) Urine Bacteria Many (>30) H Moderate (10-30) H (None) Ur Culture Indicated? Cult not indicated Cult not indicated Vol Urine Centrifuged 10ml (spun) 10ml (spun) Blood Type Antibody Screen Crossmatch 0705/25/25 05/25/25 Range/Units 20:40 21:15 23:53 WBC (4.5-11.0) X10^3/uL RBC (4.0-5.2) X10^6/uL Hgb 7.3 L 7.0 L (12.0-16.0) g/dL Hct 24.6 L 23.5 L (36-46) % MCV (80-100) fL MCH (26-34) PG MCHC (30-36) % RDW (11.6-14.8) % Plt Count (150-400) X10^3/uL Neut % (Auto) (50-75) % Lymph % (Auto) (25-40) % Gove % (Auto) (3-14) % Eos % (Auto) (2-4) % Baso % (Auto) (0-2) % Neut # (Auto) (1493-5596) /uL Lymph # (Auto) (0772-7148) /uL [place]ove # (Auto) (0-900) /uL Eos # (Auto) (0-450) /uL Baso # (Auto) (0-100) /uL RBC Morphology Anisocytosis Microcytosis Stomatocytes PT (9.4-12.5) SECONDS INR (0.9-1.3) APTT (25.1-36.5) SECONDS Sodium (137-145) mmol/L Potassium (3.4-5.1) mmol/L Chloride (98-107) mmol/L Carbon Dioxide (22-32) mmol/L BUN (7-17) mg/dL Creatinine (0.52-1.04) mg/dL Estimated GFR (>60) mL/min BUN/Creatinine Ratio (6-22) Glucose (70-99) mg/dL Lactate 0.9 (0.7-2.1) mmol/L Calcium (8.4-10.2) mg/dL Magnesium (1.6-2.3) mg/dL Total Bilirubin (0.2-1.3) mg/dL AST (14-36) IU/L ALT (<35) IU/L Alkaline Phosphatase (38-126) U/L Total Creatine Kinase (30-135) U/L Troponin I (0.01-0.034) ng/mL NT-Pro-B Natriuret Pep (<125) pg/mL Total Protein (6.3-8.2) g/dL Albumin (3.5-5.0) g/dL Globulin (1.7-4.1) g/dL Albumin/Globulin Ratio (1.0-2.8) Lipase (23-300) U/L Procalcitonin 0.132 (<0.5) ng/mL Urine Color Urine Appearance Urine pH (4.5-8.0) Ur Specific [place] (1.000-1.035) Urine Protein (Negative) Urine Glucose (UA) (Negative) g/dL Urine Ketones (NEGATIVE) Urine Occult Blood (Negative) Urine Nitrate (Negative) Urine Bilirubin (NEGATIVE) Urine Urobilinogen (0.2) E.U./dL Ur Leukocyte Esterase (NEGATIVE) Urine RBC (0-5/HPF) Urine WBC (0-5/HPF) Ur Squamous Epith Cells (0-5/HPF) Urine Bacteria (None) Ur Culture Indicated? Vol Urine Centrifuged Blood Type O Positive Antibody Screen Negative Crossmatch See Detail Urine Dip Bedside Urine Glucose Negative Bedside Urine Bilirubin - Negative Bedside Urine Ketone - Negative Urine Specific [place] 1.015 Bedside Urine Occult Blood - Negative Bedside Urine pH 6.0 Bedside Urine Protein +/- 15 Bedside Urine Urobilinogen - Negative Bedside Urine Nitrite - Negative Bedside Urine Leukocytes - Negative Esterase Imaging Data Chest x-ray: Radiologist's Impression: [address] [address] XRay Report Signed Patient: Minesh Olvera MR#: [id number] : 1980 Acct:[id number] Age/Sex: 44 / F Date of Service: 05/25/25 Loc: ED Accession Number: [id number] Procedure: XR chest 1V Ordering Provider: Rosio Perez D.O. PROCEDURE: XR CHEST 1V INDICATIONS: Chest Pain TECHNIQUE: One view of the chest was acquired. COMPARISON: [facility], CR, XR CHEST 1V, 05/23/2025, 9:24. [facility], CR, XR CHEST 1V, 05/14/2025, 20:11. FINDINGS AND IMPRESSION: Low lung volumes. No dense airspace disease or pleural effusion on this single view study. Normal heart size. No significant osseous abnormality. Dictated by: Silas Dutta M.D. on 05/25/2025 at 15:08 Approved by: Silas Dutta M.D. on 05/25/2025 at 15:08 CT angiogram abdomen and pelvis GI bleeding protocol: Radiologist's Impression: [address] [address] [address] Scan Report Signed Patient: Minesh Olvera MR#: [id number] : 1980 Acct:[id number] Age/Sex: 44 / F Date of Service: 05/25/25 Loc: ED Accession Number: [id number] Procedure: CT angio Abd/Pel GI Bleed Ordering Provider: Santosh Parks MD PROCEDURE: CT ANGIO ABD/PEL GI BLEED INDICATIONS: Back Pain/Injury TECHNIQUE: After the administration of intravenous contrast, 2.5 mm thick sections acquired from the diaphragm to the symphysis. 10 mm maximum-intensity projection (MIP) reformats were then acquired. For radiation dose reduction, the following was used: automated exposure control. COMPARISON: Mildly degraded by patient motion artifact. FINDINGS: Image Quality: Diagnostic. Abdominal aorta: No aortic aneurysm or evidence of acute aortic syndrome. Mesenteric arteries: Patent without hemodynamically significant stenosis. Renal arteries: Patent without hemodynamically significant stenosis. OTHER: Lower Chest: No significant findings. Liver: No solid mass. Gallbladder: Cholelithiasis without wall thickening or pericholecystic fluid. Biliary ducts: No biliary dilation. Pancreas: No ductal dilation. Spleen: Size is within normal limits. Adrenal Glands: No adrenal nodules. Kidneys and Ureters: No hydronephrosis. No solid mass. No complex renal cystic lesion which requires follow up. Stomach and Bowel: Normal colonic caliber, without significant wall thickening. Normal caliber appendix. Peritoneum: No abnormal intraperitoneal fluid. No free air. Ventral Wall: No hernia. Abdominal Nodes: No retroperitoneal or mesenteric adenopathy by size criteria. Vessels: Aorta and inferior vena cava are normal in size. PELVIS: Pelvic Organs: Left para ovarian simple appearing 2.5 cm cyst. Bladder: Unremarkable. Pelvic Nodes: No enlarged lymph nodes. Miscellaneous: No inguinal hernias are seen. Bones: No aggressive osseous abnormality. IMPRESSION: No aortic aneurysm or evidence of acute aortic syndrome. Normal caliber appendix. No acute abdominopelvic process to explain patient's symptoms. Approved by: Mari Pratt M.D.,Ph.D. on 05/25/2025 at 22:30 MDM Narrative Medical decision making narrative: 44-year-old female with back pain, recently seen here 05/23/2025 with dizziness after recent upper respiratory infection, evaluation that included CT angiogram of the chest that was negative, eventually discharged home. Feels intermittent right lower back pain without obvious injury. Not dizzy like before. No recent black or red stools. No vaginal bleeding recent. No nosebleeds or other external signs symptoms of bleeding. Lab data: White blood cell count 6900, hemoglobin 7.6, platelets [id number]. Sodium 133, potassium 4.4, serum CO2 28. BUN 15 with creatinine 0.76. Glucose normal. Transaminitis mild, T bili and alkaline phosphatase normal. Troponin negative/unmeasurable. BNP not elevated. Urinalysis with bacteriuria but contaminated, repeat/cath urine requested. Repeat hemoglobin 7.3 further decreased. Still no external signs/symptoms of bleeding. 05/23/2025 CT chest angio report located, did not include abdomen and pelvis, patient informed. Consider abdominopelvic imaging given decreasing hemoglobin unclear etiology. No aortic pathology noted in chest imaging prior, negative for PE. Renal function adequate. CT angiogram abdomen and pelvis GI bleeding protocol ordered. NPO for now. IV Protonix. Initial urinalysis contaminated, repeat urinalysis with moderate bacteria, culture requested. IV ceftriaxone. CTA GI bleed protocol scan results pending. Most recent systolic blood pressure 120s improved. CT angiogram abdomen and pelvis GI bleed protocol. IMPRESSION: No aortic aneurysm or evidence of acute aortic syndrome. Normal caliber appendix. No acute abdominopelvic process to explain patient's symptoms. See radiology report. 0045, case discussed with hospitalist Dr Barrow, consider admission, soft blood pressure, tachycardia, possible UTI, drifting hemoglobin without visible bleeding. Consider endoscopy. Consider surgical consultation. We will transfuse 1st unit packed red blood cells. Patient gave verbal consent, we will signed consent. 0050, case discussed with surgery Dr. Morris who will consult for likely endoscopy as an inpatient. Admit to hospitalist service, 1st unit transfusion, IV fluids and packed cells infusing. IV antibiotics given in case of urine infection. Keep NPO for possible endoscopy tomorrow Critical Care Time Critical Care Time Critical Care Time: Yes Total Critical Care Time: 35 Attestation: The high probability of a clinically significant, sudden or life threatening deterioration of the [abdominopelvic, genitourinary, hematologic] system(s) required my full and direct attention, intervention and personal management. The aggregate critical care time was [35] minutes. This time is in addition to time spent performing reported procedures but includes the following: [x] Data Review and interpretation [x] Patient assessment and monitoring of vital signs [x] Documentation [x] Medication orders and management Discharge Plan Departure Patient Disposition: Admitted as Observation Clinical Impression: Anemia, Urinary tract infection, Hypotension, Tachycardia Admit Date/Time: 05/26/25 01:05 Admit Provider: Marcel Barrow
[2025-05-25 20:53] LABS: Hematocrit 24.6 % (36-46); Hemoglobin 7.3 g/dL (12.0-16.0)
--- NOTE | 2025-05-25 20:56 | DI.CT.S_ITS ---
PROCEDURE: CT ANGIO ABD/PEL GI BLEED INDICATIONS: Back Pain/Injury TECHNIQUE: After the administration of intravenous contrast, 2.5 mm thick sections acquired from the diaphragm to the symphysis. 10 mm maximum-intensity projection (MIP) reformats were then acquired. For radiation dose reduction, the following was used: automated exposure control. COMPARISON: Mildly degraded by patient motion artifact. FINDINGS: Image Quality: Diagnostic. Abdominal aorta: No aortic aneurysm or evidence of acute aortic syndrome. Mesenteric arteries: Patent without hemodynamically significant stenosis. Renal arteries: Patent without hemodynamically significant stenosis. OTHER: Lower Chest: No significant findings. Liver: No solid mass. Gallbladder: Cholelithiasis without wall thickening or pericholecystic fluid. Biliary ducts: No biliary dilation. Pancreas: No ductal dilation. Spleen: Size is within normal limits. Adrenal Glands: No adrenal nodules. Kidneys and Ureters: No hydronephrosis. No solid mass. No complex renal cystic lesion which requires follow up. Stomach and Bowel: Normal colonic caliber, without significant wall thickening. Normal caliber appendix. Peritoneum: No abnormal intraperitoneal fluid. No free air. Ventral Wall: No hernia. Abdominal Nodes: No retroperitoneal or mesenteric adenopathy by size criteria. Vessels: Aorta and inferior vena cava are normal in size. PELVIS: Pelvic Organs: Left para ovarian simple appearing 2.5 cm cyst. Bladder: Unremarkable. Pelvic Nodes: No enlarged lymph nodes. Miscellaneous: No inguinal hernias are seen. Bones: No aggressive osseous abnormality. IMPRESSION: No aortic aneurysm or evidence of acute aortic syndrome. Normal caliber appendix. No acute abdominopelvic process to explain patient's symptoms. Approved by: Mari Pratt M.D.,Ph.D. on 05/25/2025 at 22:30
[2025-05-25 20:58] LABS: Appearance Urine UA CLEAR; Bilirubin Urine UA NEGATIVE (NEGATIVE); Glucose Urine UA NEGATIVE (Negative); Ketones Urine UA TRACE (NEGATIVE); Leukocyte Esterase Urine UA NEGATIVE (NEGATIVE); Nitrite Urine UA NEGATIVE (Negative); Occult Blood Urine UA NEGATIVE (Negative); Protein Urine UA TRACE (Negative); Specific Gravity Urine UA 1.010 (1.000-1.035); Urobilinogen Urine UA 0.2 E.U./dL (0.2)
[2025-05-25 21:01] LABS: Color Urine UA ORANGE; pH Urine UA 5.5 (4.5-8.0)
[2025-05-25 21:06] LABS: Culture Indicated Urine Cult Not Indicated
[2025-05-25] MEDS: SODIUM CHLORIDE 0.9% 1,000 ML 1000 ML IV (21:18)
[2025-05-25] MEDS: PANTOPRAZOLE 40 MG VIAL 80 MG IV (21:18)
[2025-05-25 22:02] LABS: Lactate (Lactic Acid) 0.9 mmol/L (0.7-2.1)
[2025-05-25 22:20] LABS: Procalcitonin 0.132 ng/mL (<0.5)
[2025-05-26] VITALS (13 sets, daily range): BP systolic 99–109; BP diastolic 55–72; PULSE 92–106; RESP 16–35; TEMP 36.2–37.4; O2SAT 95–99; BMI 43.7
[2025-05-26] LABS: Hematocrit 23.5 % (36-46); Hemoglobin 7.0 g/dL (12.0-16.0)
[2025-05-26] MEDS: SODIUM CHLORIDE 0.9% 1,000 ML 75 ML IV ×2 (02:00→21:51)
[2025-05-26 03:28] LABS: MRSA (Nasal) PCR NOT DETECTED (Not Detect)
--- NOTE | 2025-05-26 04:36 | PM.HP.1 ---
History of Present Illness History of Present Illness Date Patient Seen: 05/26/25 Time Patient Seen: 00:31 Chief complaint: nauseas constipated pinching in side Narrative: 44-year-old female with past medical history asthma and prior history of and tubal ligation presents with lightheadedness and intermittent abdominal pain. Per the patient's report, over the last few days, the patient has lightheaded as well as intermittent right lower abdominal pain. The patient states that the pain is sharp, nonradiating and moderate in severity. The patient however denies any nausea, vomit, diarrhea, GI bleed, chest pain, shortness of breath. However the patient does have a cough. The patient states that she does have irregular. But this has not changed over the many years. Patient last menstrual cycle was about 3 weeks ago. Patient denies any active vaginal bleeding. In the emergency room, the patient was hemodynamically stable except for some tachycardia. The patient's labs shows a hemoglobin of 7 but otherwise relatively benign. Sodium 133. CT abdomen and pelvics shows no acute finding. Patient did receive 1 dose of IV ceftriaxone though UA is not indicative of UTI. 1 unit of blood transfusion was ordered. General surgery was consulted and plan for possible endoscopy to look for source of bleeding in the morning. [facility] Medical History (Updated 05/26/25 @ 00:54 by Santosh Parks MD) Asthma Surgical History History of Hx of tubal ligation Family History Mother Age: 64 Diabetes mellitus Sister Age: 44 Abnormal thyroid function test Social History household members: spouse and children Smoking Status: Never smoker Meds Home Medications and Allergies Allergies Allergy/AdvReac Type Severity Reaction Status Date / Time Sulfa (Sulfonamide Allergy Unknown Hives Verified 05/25/25 15:31 Antibiotics) levofloxacin (From LEVAQUIN) AdvReac Unknown abdominal Verified 05/25/25 15:31 discomfort Exam Vital Signs (past 8 hours): - 05/25/25 21:00 05/25/25 21:00 05/25/25 21:30 Temperature Pulse Rate 104 H 120 H Respiratory Rate 24 26 H Blood Pressure 122/60 Pulse Oximetry 99 96 Oxygen Delivery Method Room Air 05/25/25 21:54 05/25/25 21:54 05/25/25 22:00 Temperature Pulse Rate 113 H 104 H Respiratory Rate 35 H 33 H Blood Pressure 117/59 L Pulse Oximetry 97 95 Oxygen Delivery Method Room Air 05/25/25 22:00 05/25/25 22:30 05/25/25 22:30 Temperature Pulse Rate 99 H Respiratory Rate 23 Blood Pressure 97/52 L 101/57 L Pulse Oximetry 95 Oxygen Delivery Method 05/25/25 23:00 05/25/25 23:00 05/25/25 23:30 Temperature Pulse Rate 97 H 98 H Respiratory Rate 22 23 Blood Pressure 100/60 Pulse Oximetry 94 96 Oxygen Delivery Method Room Air Room Air 05/25/25 23:30 05/26/25 00:02 05/26/25 00:03 Temperature Pulse Rate 106 H 100 H Respiratory Rate 27 H 21 Blood Pressure 100/57 L Pulse Oximetry 95 95 Oxygen Delivery Method Room Air Room Air 05/26/25 00:03 05/26/25 00:30 05/26/25 00:30 Temperature Pulse Rate 104 H Respiratory Rate 26 H Blood Pressure 99/55 L 102/60 Pulse Oximetry 98 Oxygen Delivery Method Room Air 05/26/25 01:00 05/26/25 01:00 05/26/25 01:48 Temperature Pulse Rate 106 H Respiratory Rate 35 H Blood Pressure 109/61 Pulse Oximetry 98 Oxygen Delivery Method Room Air Room Air 05/26/25 02:02 05/26/25 02:18 Temperature 97.5 F L 97.8 F Pulse Rate 106 H 105 H Respiratory Rate 18 18 Blood Pressure 109/65 102/59 L Pulse Oximetry Oxygen Delivery Method Oxygen Delivery Method Room Air Narrative Exam Narrative: Physical Exam: GENERAL: The patient is not in any acute distressed. Awake and alert. HEENT: Nonicteric sclerae, PERRLA, EOMI. Oropharynx clear. Moist mucous membranes. Conjunctivae appear well perfused. HEART: Regular rate and rhythm without murmurs. No lower extremities edema. LUNGS: Clear to auscultation bilaterally. No wheezing, crackles or rhonchi ABDOMEN: Soft, positive bowel sounds, nontender. SKIN: No rash, no excessive bruising, petechiae, or purpura. NEUROLOGIC: AxO x 3. Cranial nerves II-XII intact without motor/sensory deficit. Objective Labs 05/25/25 23:53 05/25/25 15:53 Labs: Laboratory Results - last 24 hr 05/25/25 05/25/25 05/25/25 15:53 18:14 19:52 WBC 6.9 RBC 4.26 Hgb 7.6 L Hct 25.5 L MCV 60.0 L MCH 17.9 L MCHC 29.9 L RDW 20.3 H Plt Count 269 Neut % (Auto) 40.8 L Lymph % (Auto) 49.8 H [place] % (Auto) 5.8 Eos % (Auto) 2.6 Baso % (Auto) 1.0 Neut # (Auto) 2800 Lymph # (Auto) 3400 [place] # (Auto) 400 Eos # (Auto) 200 Baso # (Auto) 100 RBC Morphology See below Anisocytosis 2+ H Microcytosis 2+ H Stomatocytes 1+ H PT 13.5 H INR 1.2 APTT 31 Sodium 133 L Potassium 4.4 Chloride 102 Carbon Dioxide 28 BUN 15 Creatinine 0.76 Estimated GFR > 60 BUN/Creatinine Ratio 19.7 Glucose 95 Lactate Calcium 7.8 L Magnesium 2.2 Total Bilirubin 0.6 AST 64 H ALT 50 H Alkaline Phosphatase 80 Total Creatine Kinase 32 Troponin I < 0.012 NT-Pro-B Natriuret Pep 31 Total Protein 6.8 Albumin 3.3 L Globulin 3.5 Albumin/Globulin Ratio 0.9 L Lipase 76 Procalcitonin Urine Color [place] Urine Appearance Clear Urine pH 5.5 Ur Specific [place] 1.010 Urine Protein Trace H Urine Glucose (UA) Negative Urine Ketones Trace H Urine Occult Blood Negative Urine Nitrate Negative Urine Bilirubin Negative Urine Urobilinogen 0.2 Ur Leukocyte Esterase Negative Urine RBC None seen None seen Urine WBC 0-1/hpf None seen Ur Squamous Epith Cells 5-10 /hpf H 1-5 /hpf Urine Bacteria Many (>30) H Moderate (10-30) H Ur Culture Indicated? Cult not indicated Cult not indicated Vol Urine Centrifuged 10ml (spun) 10ml (spun) Nasal Screen MRSA (PCR) Blood Type Antibody Screen Crossmatch 05/25/25 05/25/25 05/25/25 20:40 21:15 23:53 WBC RBC Hgb 7.3 L 7.0 L Hct 24.6 L 23.5 L MCV MCH MCHC RDW Plt Count Neut % (Auto) Lymph % (Auto) [place] % (Auto) Eos % (Auto) Baso % (Auto) Neut # (Auto) Lymph # (Auto) [place] # (Auto) Eos # (Auto) Baso # (Auto) RBC Morphology Anisocytosis Microcytosis Stomatocytes PT INR APTT Sodium Potassium Chloride Carbon Dioxide BUN Creatinine Estimated GFR BUN/Creatinine Ratio Glucose Lactate 0.9 Calcium Magnesium Total Bilirubin AST ALT Alkaline Phosphatase Total Creatine Kinase Troponin I NT-Pro-B Natriuret Pep Total Protein Albumin Globulin Albumin/Globulin Ratio Lipase Procalcitonin 0.132 Urine Color Urine Appearance Urine pH Ur Specific [place] Urine Protein Urine Glucose (UA) Urine Ketones Urine Occult Blood Urine Nitrate Urine Bilirubin Urine Urobilinogen Ur Leukocyte Esterase Urine RBC Urine WBC Ur Squamous Epith Cells Urine Bacteria Ur Culture Indicated? Vol Urine Centrifuged Nasal Screen MRSA (PCR) Blood Type O Positive Antibody Screen Negative Crossmatch See Detail 05/26/25 02:00 WBC RBC Hgb Hct MCV MCH MCHC RDW Plt Count Neut % (Auto) Lymph % (Auto) [place] % (Auto) Eos % (Auto) Baso % (Auto) Neut # (Auto) Lymph # (Auto) [place] # (Auto) Eos # (Auto) Baso # (Auto) RBC Morphology Anisocytosis Microcytosis Stomatocytes PT INR APTT Sodium Potassium Chloride Carbon Dioxide BUN Creatinine Estimated GFR BUN/Creatinine Ratio Glucose Lactate Calcium Magnesium Total Bilirubin AST ALT Alkaline Phosphatase Total Creatine Kinase Troponin I NT-Pro-B Natriuret Pep Total Protein Albumin Globulin Albumin/Globulin Ratio Lipase Procalcitonin Urine Color Urine Appearance Urine pH Ur Specific [place] Urine Protein Urine Glucose (UA) Urine Ketones Urine Occult Blood Urine Nitrate Urine Bilirubin Urine Urobilinogen Ur Leukocyte Esterase Urine RBC Urine WBC Ur Squamous Epith Cells Urine Bacteria Ur Culture Indicated? Vol Urine Centrifuged Nasal Screen MRSA (PCR) Not detected Blood Type Antibody Screen Crossmatch Assessment & Plan Assessment & Plan narrative: Symptomatic anemia. Admit the patient to medical telemetry as observation. No clear source of bleeding. CT scan abdomen and pelvis shows no acute finding. Patient did have 1 unit of blood transfusion. Continue PPI. N.p.o. p.o. IV fluid. General surgery consulted for possible endoscopy in the morning to look for source of bleeding Asthma. No sign Exacerbation monitor for now with inhaler as needed. DVT prophylaxis SCDs. CODE STATUS full code. Disposition likely home in 1 to 2 days - As the provider of this telehealth evaluation, requested by the patient's evaluating physician, I attest that I introduced myself to the patient, provided my credentials and determined that telemedicine via a real-time, 2 way interactive audio and video platform is an appropriate and effective means of providing this service. - I reviewed the patient's chart and had a discussion with the member of the patient's treatment team. - The patient and I mutually agreed with continuation of this evaluation via telemedicine. The patient consented for the telemedicine evaluation. - This virtual encounter was taken place from [place] by Dr. Marcel Barrow. The patient was evaluated at [facility]. The encounter was approximately 35 minutes. The nurse was present during the entire time of the encounter and was able to move the stethoscope in appropriate directions. Time-Based Coding :: [TOTAL MINUTES] spent with patient and on the chart (including review of chart, obtaining history, exam, reviewing outside data, placing orders, documenting exam and treatment plan, and counseling patient) on [DATE].
--- NOTE | 2025-05-26 06:56 | P.CONS_ITS ---
History of Present Illness Consult details Date Patient Seen: 05/26/25 Time Patient Seen: 06:56 Reason for consult: Anemia, r/o GI source Requesting provider: Santosh Parks Narrative: General surgery consult requested by Dr. Parks in the emergency room. Patient presents with a hemoglobin of 7 and we are asked to evaluate patient for possible endoscopy to rule out GI sources of bleeding. Approximately a week ago the patient began complaining of weakness, dizziness, fatigue and decreased appetite. She has never had GI endoscopy prior. A recent hemoglobin was 8.4 during an unrelated ER visit for upper respiratory tract infection. She was 7.6 this ER visit and down to 7 after IV fluid resuscitation for SBP 90s, possible dilutional. She was slightly tachycardic and SBP 90s, responded well to IVF resuscitation. She had bacteria in her urine so Rocephin therapy was initiated. The patient denies blood in vomit or stool. She has a normal bowel movement every morning, sometimes twice a day of normal color and consistency. She has no family history for colon cancer. No history for peptic ulcer disease. She can eat spicy foods and fatty foods without symptoms. She denies nausea or vomiting. Denies fever. When inquired about abdominal pain she states she has mild lower abdominal pain not requiring pain medication. Nonsmoker, denies alcohol or recreational drugs. She only takes nonsteroidal anti-inflammatory drugs on an as needed basis and rarely. No recent changes in weight. No excessive bleeding with menstruation and this anemia episode is unrelated to her cycle. CTA in ED unremarkable, nothing acute, no source of bleeding identified. Meds Home Medications and Allergies Allergies Allergy/AdvReac Type Severity Reaction Status Date / Time Sulfa (Sulfonamide Allergy Unknown Hives Verified 05/25/25 15:31 Antibiotics) levofloxacin (From LEVAQUIN) AdvReac Unknown abdominal Verified 05/25/25 15:31 discomfort Exam Vital Signs (past 8 hours): - 05/25/25 23:00 05/25/25 23:00 05/25/25 23:30 Temperature Pulse Rate 97 H 98 H Respiratory Rate 22 23 Blood Pressure 100/60 Pulse Oximetry 94 96 Oxygen Delivery Method Room Air Room Air 05/25/25 23:30 05/26/25 00:02 05/26/25 00:03 Temperature Pulse Rate 106 H 100 H Respiratory Rate 27 H 21 Blood Pressure 100/57 L Pulse Oximetry 95 95 Oxygen Delivery Method Room Air Room Air 05/26/25 00:03 05/26/25 00:30 05/26/25 00:30 Temperature Pulse Rate 104 H Respiratory Rate 26 H Blood Pressure 99/55 L 102/60 Pulse Oximetry 98 Oxygen Delivery Method Room Air 05/26/25 01:00 05/26/25 01:00 05/26/25 01:48 Temperature Pulse Rate 106 H Respiratory Rate 35 H Blood Pressure 109/61 Pulse Oximetry 98 Oxygen Delivery Method Room Air Room Air 05/26/25 02:02 05/26/25 02:18 05/26/25 04:09 Temperature 97.5 F L 97.8 F 99.3 F Pulse Rate 106 H 105 H 103 H Respiratory Rate 18 18 20 Blood Pressure 109/65 102/59 L 109/66 Pulse Oximetry Oxygen Delivery Method Oxygen Delivery Method Room Air Const General: comfortable Orientation: alert and oriented x3 HENMT Head: normal to inspection Ears: hearing grossly normal bilaterally Eyes General: appearance normal, both eyes and all related structures Alignment and Position: alignment normal Conjunctivae: conjunctivae normal Sclera: sclerae normal Pupils: PERRL EOM: EOM intact bilaterally Resp Effort & Inspection: normal respiratory effort and able to speak in complete sentences Auscultation: clear to auscultation bilaterally Cardio Rate: regular rate Rhythm: regular rhythm GI Inspection: normal to inspection Palpation: soft Other: Non-peritoneal exam, no mass, mild tenderness to palpation in bilateral lower abdomen Extrem Other: Without pitting edema Objective Labs 05/25/25 23:53 05/25/25 15:53 Labs: Laboratory Results - last 24 hr 05/25/25 05/25/25 05/25/25 15:53 18:14 19:52 WBC 6.9 RBC 4.26 Hgb 7.6 L Hct 25.5 L MCV 60.0 L MCH 17.9 L MCHC 29.9 L RDW 20.3 H Plt Count 269 Neut % (Auto) 40.8 L Lymph % (Auto) 49.8 H [place] % (Auto) 5.8 Eos % (Auto) 2.6 Baso % (Auto) 1.0 Neut # (Auto) 2800 Lymph # (Auto) 3400 [place] # (Auto) 400 Eos # (Auto) 200 Baso # (Auto) 100 RBC Morphology See below Anisocytosis 2+ H Microcytosis 2+ H Stomatocytes 1+ H PT 13.5 H INR 1.2 APTT 31 Sodium 133 L Potassium 4.4 Chloride 102 Carbon Dioxide 28 BUN 15 Creatinine 0.76 Estimated GFR > 60 BUN/Creatinine Ratio 19.7 Glucose 95 Lactate Calcium 7.8 L Magnesium 2.2 Total Bilirubin 0.6 AST 64 H ALT 50 H Alkaline Phosphatase 80 Total Creatine Kinase 32 Troponin I < 0.012 NT-Pro-B Natriuret Pep 31 Total Protein 6.8 Albumin 3.3 L Globulin 3.5 Albumin/Globulin Ratio 0.9 L Lipase 76 Procalcitonin Urine Color [place] Urine Appearance Clear Urine pH 5.5 Ur Specific [place] 1.010 Urine Protein Trace H Urine Glucose (UA) Negative Urine Ketones Trace H Urine Occult Blood Negative Urine Nitrate Negative Urine Bilirubin Negative Urine Urobilinogen 0.2 Ur Leukocyte Esterase Negative Urine RBC None seen None seen Urine WBC 0-1/hpf None seen Ur Squamous Epith Cells 5-10 /hpf H 1-5 /hpf Urine Bacteria Many (>30) H Moderate (10-30) H Ur Culture Indicated? Cult not indicated Cult not indicated Vol Urine Centrifuged 10ml (spun) 10ml (spun) Nasal Screen MRSA (PCR) Blood Type Antibody Screen Crossmatch 05/25/25 05/25/25 05/25/25 20:40 21:15 23:53 WBC RBC Hgb 7.3 L 7.0 L Hct 24.6 L 23.5 L MCV MCH MCHC RDW Plt Count Neut % (Auto) Lymph % (Auto) [place] % (Auto) Eos % (Auto) Baso % (Auto) Neut # (Auto) Lymph # (Auto) [place] # (Auto) Eos # (Auto) Baso # (Auto) RBC Morphology Anisocytosis Microcytosis Stomatocytes PT INR APTT Sodium Potassium Chloride Carbon Dioxide BUN Creatinine Estimated GFR BUN/Creatinine Ratio Glucose Lactate 0.9 Calcium Magnesium Total Bilirubin AST ALT Alkaline Phosphatase Total Creatine Kinase Troponin I NT-Pro-B Natriuret Pep Total Protein Albumin Globulin Albumin/Globulin Ratio Lipase Procalcitonin 0.132 Urine Color Urine Appearance Urine pH Ur Specific [place] Urine Protein Urine Glucose (UA) Urine Ketones Urine Occult Blood Urine Nitrate Urine Bilirubin Urine Urobilinogen Ur Leukocyte Esterase Urine RBC Urine WBC Ur Squamous Epith Cells Urine Bacteria Ur Culture Indicated? Vol Urine Centrifuged Nasal Screen MRSA (PCR) Blood Type O Positive Antibody Screen Negative Crossmatch See Detail 05/26/25 02:00 WBC RBC Hgb Hct MCV MCH MCHC RDW Plt Count Neut % (Auto) Lymph % (Auto) [place] % (Auto) Eos % (Auto) Baso % (Auto) Neut # (Auto) Lymph # (Auto) [place] # (Auto) Eos # (Auto) Baso # (Auto) RBC Morphology Anisocytosis Microcytosis Stomatocytes PT INR APTT Sodium Potassium Chloride Carbon Dioxide BUN Creatinine Estimated GFR BUN/Creatinine Ratio Glucose Lactate Calcium Magnesium Total Bilirubin AST ALT Alkaline Phosphatase Total Creatine Kinase Troponin I NT-Pro-B Natriuret Pep Total Protein Albumin Globulin Albumin/Globulin Ratio Lipase Procalcitonin Urine Color Urine Appearance Urine pH Ur Specific [place] Urine Protein Urine Glucose (UA) Urine Ketones Urine Occult Blood Urine Nitrate Urine Bilirubin Urine Urobilinogen Ur Leukocyte Esterase Urine RBC Urine WBC Ur Squamous Epith Cells Urine Bacteria Ur Culture Indicated? Vol Urine Centrifuged Nasal Screen MRSA (PCR) Not detected Blood Type Antibody Screen Crossmatch [facility] Medical History (Updated 05/26/25 @ 07:09 by Wilbur Morris MD) Asthma Surgical History History of Hx of tubal ligation Family History Mother Age: 64 Diabetes mellitus Sister Age: 44 Abnormal thyroid function test Social History household members: spouse and children Tobacco & Substance Use Smoking Status: Never smoker Assessment & Plan Assessment and plan (1) Anemia: Qualifiers: Anemia type: unspecified type Qualified Code(s): D64.9 - Anemia, unspecified Status: Acute Assessment & Plan narrative: Anemia, unclear etiology UTI - Rocephin therapy Discussed GI endoscopy with patient in an effort to identify the source of her anemia. If we identify a source in the GI tract we can inject, cauterize, biopsy and remove polyps as indicated. Endoscopy could also rule out the GI tract as a source. Plan EGD/Colonoscopy, possible biopsy, possible polypectomy in AM 05/27/25. Golytely prep today. The risks, benefits and options regarding the procedure were explained to the patient in detail. Risk discussion included but not limited to: bleeding, perforation, missed lesions. The patient was encouraged to ask questions and they were answered to their satisfaction. The patient understands and is agreeable to proceed. Time-Based Coding :: [38 minutes] spent with patient and on the chart (including review of chart, obtaining history, exam, reviewing outside data, placing orders, documenting exam and treatment plan, and counseling patient) on [05/26/25]. PROFEE Charge Codes Inpatient or Observation consultation: [id number]
--- NOTE | 2025-05-26 07:18 | PM.PN.1 ---
Subjective Subjective Date Patient Seen: 05/26/25 Interval history: The hemoglobin sade from 7.0 up to 8.2 with 1 unit of packed red blood cells. The ALT and AST are stable, slightly elevated. The CT abdomen is negative. The white blood count is 6.9. EGD and colonoscopy are pending for tomorrow. 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 Exam Vital Signs (past 8 hours): - 05/25/25 23:30 05/25/25 23:30 05/26/25 00:02 Temperature Pulse Rate 98 H 106 H Respiratory Rate 23 27 H Blood Pressure 100/57 L Pulse Oximetry 96 95 Oxygen Delivery Method Room Air Room Air Oxygen Flow Rate 05/26/25 00:03 05/26/25 00:03 05/26/25 00:30 Temperature Pulse Rate 100 H 104 H Respiratory Rate 21 26 H Blood Pressure 99/55 L Pulse Oximetry 95 98 Oxygen Delivery Method Room Air Room Air Oxygen Flow Rate 05/26/25 00:30 05/26/25 01:00 05/26/25 01:00 Temperature Pulse Rate 106 H Respiratory Rate 35 H Blood Pressure 102/60 109/61 Pulse Oximetry 98 Oxygen Delivery Method Room Air Oxygen Flow Rate 05/26/25 01:48 05/26/25 01:57 05/26/25 02:02 Temperature 97.9 F 97.5 F L Pulse Rate 103 H 106 H Respiratory Rate 18 18 Blood Pressure 102/68 109/65 Pulse Oximetry Oxygen Delivery Method Room Air Oxygen Flow Rate 05/26/25 02:18 05/26/25 04:09 05/26/25 06:00 Temperature 97.8 F 99.3 F 98.4 F Pulse Rate 105 H 103 H 102 H Respiratory Rate 18 20 16 Blood Pressure 102/59 L 109/66 103/66 Pulse Oximetry 98 Oxygen Delivery Method Oxygen Flow Rate 0 Oxygen Delivery Method Room Air Oxygen Flow Rate 0 Narrative Exam Narrative: Alert and oriented x3. No apparent distress. Heart is regular rate and rhythm without murmur Lungs are clear to auscultation bilaterally Abdomen is soft, bowel sounds positive, nontender, obese, no organomegaly. Extremities have no ankle edema Objective Labs 05/26/25 07:25 05/26/25 07:25 Labs: Laboratory Results - last 24 hr 05/25/25 05/25/25 05/25/25 15:53 18:14 19:52 WBC 6.9 RBC 4.26 Hgb 7.6 L Hct 25.5 L MCV 60.0 L MCH 17.9 L MCHC 29.9 L RDW 20.3 H Plt Count 269 Neut % (Auto) 40.8 L Lymph % (Auto) 49.8 H [place] % (Auto) 5.8 Eos % (Auto) 2.6 Baso % (Auto) 1.0 Neut # (Auto) 2800 Lymph # (Auto) 3400 [place] # (Auto) 400 Eos # (Auto) 200 Baso # (Auto) 100 RBC Morphology See below Anisocytosis 2+ H Microcytosis 2+ H Stomatocytes 1+ H PT 13.5 H INR 1.2 APTT 31 Sodium 133 L Potassium 4.4 Chloride 102 Carbon Dioxide 28 BUN 15 Creatinine 0.76 Estimated GFR > 60 BUN/Creatinine Ratio 19.7 Glucose 95 Lactate Calcium 7.8 L Magnesium 2.2 Total Bilirubin 0.6 AST 64 H ALT 50 H Alkaline Phosphatase 80 Total Creatine Kinase 32 Troponin I < 0.012 NT-Pro-B Natriuret Pep 31 Total Protein 6.8 Albumin 3.3 L Globulin 3.5 Albumin/Globulin Ratio 0.9 L Lipase 76 Procalcitonin Urine Color [place] Urine Appearance Clear Urine pH 5.5 Ur Specific [place] 1.010 Urine Protein Trace H Urine Glucose (UA) Negative Urine Ketones Trace H Urine Occult Blood Negative Urine Nitrate Negative Urine Bilirubin Negative Urine Urobilinogen 0.2 Ur Leukocyte Esterase Negative Urine RBC None seen None seen Urine WBC 0-1/hpf None seen Ur Squamous Epith Cells 5-10 /hpf H 1-5 /hpf Urine Bacteria Many (>30) H Moderate (10-30) H Ur Culture Indicated? Cult not indicated Cult not indicated Vol Urine Centrifuged 10ml (spun) 10ml (spun) Nasal Screen MRSA (PCR) Blood Type Antibody Screen Crossmatch 05/25/25 05/25/25 05/25/25 20:40 21:15 23:53 WBC RBC Hgb 7.3 L 7.0 L Hct 24.6 L 23.5 L MCV MCH MCHC RDW Plt Count Neut % (Auto) Lymph % (Auto) Gillespie % (Auto) Eos % (Auto) Baso % (Auto) Neut # (Auto) Lymph # (Auto) G[place] # (Auto) Eos # (Auto) Baso # (Auto) RBC Morphology Anisocytosis Microcytosis Stomatocytes PT INR APTT Sodium Potassium Chloride Carbon Dioxide BUN Creatinine Estimated GFR BUN/Creatinine Ratio Glucose Lactate 0.9 Calcium Magnesium Total Bilirubin AST ALT Alkaline Phosphatase Total Creatine Kinase Troponin I NT-Pro-B Natriuret Pep Total Protein Albumin Globulin Albumin/Globulin Ratio Lipase Procalcitonin 0.132 Urine Color Urine Appearance Urine pH Ur Specific [place] Urine Protein Urine Glucose (UA) Urine Ketones Urine Occult Blood Urine Nitrate Urine Bilirubin Urine Urobilinogen Ur Leukocyte Esterase Urine RBC Urine WBC Ur Squamous Epith Cells Urine Bacteria Ur Culture Indicated? Vol Urine Centrifuged Nasal Screen MRSA (PCR) Blood Type O Positive Antibody Screen Negative Crossmatch See Detail 05/26/25 02:00 WBC RBC Hgb Hct MCV MCH MCHC RDW Plt Count Neut % (Auto) Lymph % (Auto) G[place]pie % (Auto) Eos % (Auto) Baso % (Auto) Neut # (Auto) Lymph # (Auto) Gillespie # (Auto) Eos # (Auto) Baso # (Auto) RBC Morphology Anisocytosis Microcytosis Stomatocytes PT INR APTT Sodium Potassium Chloride Carbon Dioxide BUN Creatinine Estimated GFR BUN/Creatinine Ratio Glucose Lactate Calcium Magnesium Total Bilirubin AST ALT Alkaline Phosphatase Total Creatine Kinase Troponin I NT-Pro-B Natriuret Pep Total Protein Albumin Globulin Albumin/Globulin Ratio Lipase Procalcitonin Urine Color Urine Appearance Urine pH Ur Specific [place] Urine Protein Urine Glucose (UA) Urine Ketones Urine Occult Blood Urine Nitrate Urine Bilirubin Urine Urobilinogen Ur Leukocyte Esterase Urine RBC Urine WBC Ur Squamous Epith Cells Urine Bacteria Ur Culture Indicated? Vol Urine Centrifuged Nasal Screen MRSA (PCR) Not detected Blood Type Antibody Screen Crossmatch [facility] Medical History (Updated 05/26/25 @ 07:09 by Wilbur Morris MD) Asthma Surgical History History of Hx of tubal ligation Family History Mother Age: 64 Diabetes mellitus Sister Age: 44 Abnormal thyroid function test Social History household members: spouse and children Smoking Status: Never smoker Assessment & Plan Assessment & Plan narrative: Symptomatic anemia. No clear history of bleeding or other obvious cause of anemia. CT scan abdomen and pelvis shows no acute finding. Patient did have 1 unit of blood transfusion with improvement in hemoglobin to 8.2. Continue PPI. N.p.o. p.o. IV fluid. General surgery will take her for stoner-endoscopy tomorrow. Follow H/H. Asthma. No sign Exacerbation monitor for now with inhaler as needed. DVT prophylaxis SCDs. CODE STATUS full code. Disposition likely home in 1 to 2 days Time-Based Coding :: [TOTAL MINUTES] spent with patient and on the chart (including review of chart, obtaining history, exam, reviewing outside data, placing orders, documenting exam and treatment plan, and counseling patient) on [DATE].
[2025-05-26 07:44] LABS: Add Manual Diff / Slide Review NO; Hematocrit 26.7 % (36-46); Hemoglobin 8.2 g/dL (12.0-16.0); Lymphocytes Absolute Auto 3700 /uL (1100-4500); Mean Corpuscular HGB Conc 30.8 % (30-36); Mean Corpuscular Hemoglobin 19.3 PG (26-34); Mean Corpuscular Volume 62.7 fL (80-100); Platelet Count 231 X10^3/uL (150-400)
[2025-05-26] MEDS: PANTOPRAZOLE DR 40 MG TABLET PO ×2 (08:02→20:30)
[2025-05-26 08:14] LABS: Alanine Aminotransferase 47 IU/L (<35); Albumin 2.7 g/dL (3.5-5.0); Albumin Globulin Ratio 0.9 (1.0-2.8); Alkaline Phosphatase 73 U/L (38-126); Blood Urea Nitrogen 13 mg/dL (7-17); Calcium 7.5 mg/dL (8.4-10.2); Carbon Dioxide 26 mmol/L (22-32); Chloride 104 mmol/L (98-107); Estimated Glomerular Filt Rate > 60 mL/min (>60); Globulin 3.1 g/dL (1.7-4.1); Glucose 92 mg/dL (70-99); HEMOLYSIS 18 (0-50); Potassium 3.8 mmol/L (3.4-5.1); Sodium 135 mmol/L (137-145); Total Protein 5.8 g/dL (6.3-8.2)
[2025-05-26 08:34] LABS: Microcytosis 2+
[2025-05-26 08:36] LABS: Hypochromasia 2+
[2025-05-26 08:37] LABS: Anisocytosis 2+
[2025-05-26] MEDS: PEG3350/SOD SULF,BICARB,CL/KCL 4,000 ML SOLUTION 4000 ML PO (08:41)
--- NOTE | 2025-05-26 09:31 | CM.DANOTE ---
B DCP Assessment Note pt is a 44yo F admitted with anemia. plan for pt to be NPO today and then EGD/colonoscopy tomorrow PCP Dr. Marcelo Stevens and self pay UNIT AIDE reviewed EMR per chart review, pt lives indep in [place] with partner and children. no obvious CM needs identified at this time P: anticipate dc home with family when medically stable. CM team will continue to follow as needed for DCP needs MARIBELL Gu Discharge Planning/Care Management CM Discharge Assessment Start: 05/26/25 01:48 Freq: Status: Active Protocol: Document 05/26/25 09:29 SL (Rec: 05/26/25 09:30 SL Desktop) Discharge Planning Assessment Assigned Discharge MARIBELL Mckinney Director Organizational DPOA/Assigned diana Andrew Designee Name Contact Information [phone] Advance Directives? No History Provided By Patient Prior Living House Arrangements Household Members spouse,children Type of Drives own vehicle transporation used prior to admit Independent with ADL Yes 's Is patient alert and Yes oriented? Discharge Plan Home Review Status In Process Please Provide Date 05/26/25 Initial DC Assessment Was Performed Next Review Type Continued Stay Review
[2025-05-27] VITALS (8 sets, daily range): BP systolic 93–125; BP diastolic 56–82; PULSE 71–109; RESP 11–20; TEMP 36.2–37.2; O2SAT 93–98; BMI 43.7
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
[2025-05-27 05:13] LABS: Hematocrit 26.7 % (36-46); Hemoglobin 8.2 g/dL (12.0-16.0)
--- NOTE | 2025-05-27 07:23 | PM.PN.1 ---
Subjective Subjective Date Patient Seen: 05/27/25 Exam Vital Signs (past 8 hours): - 05/27/25 00:00 05/27/25 04:00 Pulse Rate 90 91 H Respiratory Rate 17 16 Blood Pressure 112/65 109/62 Pulse Oximetry 95 93 Oxygen Flow Rate 0 Oxygen Delivery Method Room Air Oxygen Flow Rate 0 Objective Labs 05/27/25 04:30 05/26/25 07:25 Labs: Laboratory Results - last 24 hr 05/26/25 05/27/25 07:25 04:30 WBC 6.9 RBC 4.25 Hgb 8.2 L 8.2 L Hct 26.7 L 26.7 L MCV 62.7 L MCH 19.3 L MCHC 30.8 RDW 23.2 H Plt Count 231 Neut % (Auto) 36.0 L Lymph % (Auto) 53.2 H [place] % (Auto) 5.6 Eos % (Auto) 4.2 H Baso % (Auto) 1.0 Neut # (Auto) 2500 Lymph # (Auto) 3700 [place] # (Auto) 400 Eos # (Auto) 300 Baso # (Auto) 100 RBC Morphology See below Hypochromasia 2+ H Anisocytosis 2+ H Microcytosis 2+ H Sodium 135 L Potassium 3.8 Chloride 104 Carbon Dioxide 26 BUN 13 Creatinine 0.66 Estimated GFR > 60 BUN/Creatinine Ratio 19.7 Glucose 92 Calcium 7.5 L Total Bilirubin 0.8 AST 73 H ALT 47 H Alkaline Phosphatase 73 Total Protein 5.8 L Albumin 2.7 L Globulin 3.1 Albumin/Globulin Ratio 0.9 L [facility] Medical History (Updated 05/26/25 @ 07:09 by Wilbur Morris MD) Asthma Surgical History History of Hx of tubal ligation Family History Mother Age: 64 Diabetes mellitus Sister Age: 44 Abnormal thyroid function test Social History household members: spouse and children Smoking Status: Never smoker Assessment & Plan Assessment & Plan narrative: Symptomatic anemia. No clear history of bleeding or other obvious cause of anemia. CT scan abdomen and pelvis shows no acute finding. Patient did have 1 unit of blood transfusion with improvement in hemoglobin to 8.2. Continue PPI. N.p.o. p.o. IV fluid. General surgery will take her for stoner-endoscopy tomorrow. Follow H/H. Asthma. No sign Exacerbation monitor for now with inhaler as needed. DVT prophylaxis SCDs. CODE STATUS full code. Disposition likely home in 1 to 2 days Time-Based Coding :: [TOTAL MINUTES] spent with patient and on the chart (including review of chart, obtaining history, exam, reviewing outside data, placing orders, documenting exam and treatment plan, and counseling patient) on [DATE].
[2025-05-27] MEDS: LACTATED RINGERS 1,000 ML 42 ML IV (08:21)
[2025-05-27 08:27] LABS: HEMOLYSIS < 15 (0-50); Iron 21 ug/dL (37-170)
--- NOTE | 2025-05-27 08:34 | PM.PREOP ---
Pre-operative Note Interval Note History & Physical reviewed/Exam performed by Physician: Yes Changes to H&P: No ASA Class (for procedural sedation): I
[2025-05-27 08:37] LABS: Percent Iron Saturation 7 % (15-50); Total Iron Binding Capacity 316 ug/dL (265-497); Transferrin 234 mg/dL (206-381)
[2025-05-27 09:17] LABS: Vitamin B12 771 pg/mL (239-931)
--- NOTE | 2025-05-27 10:01 | PM.OP.EC ---
Operative Date/Time/Diagnoses Date of procedure: 05/27/25 Time of procedure: 10:01 Pre-op diagnosis: Anemia of unknown etiology Post-op diagnosis: other (AVMs of rectosigmoid colon) Procedure & Clinicians Study performed: EGD with biopsy, colonoscopy with polypectomy Same procedure(s) as scheduled: Yes Indications: 44yo F presented to ED with anemia, fatigue. GI endoscopy indicated to evaluate for GI etiology. Surgeon: Wilbur Morris Anesthesia Type: Sedation Procedure Notes SCOAP/Timeout: Performed Procedure in detail: EGD Informed consent was obtained. The procedure, its risks, benefits, and alternatives were discussed. Time out was performed. Procedural sedation was administered by anesthesia. The patient was placed in the left lateral decubitus position. After adequate sedation per anesthesia, the video endoscope was inserted into the oropharynx and guided under direct vision into the esophagus, stomach, and duodenum. The duodenal bulb and second portion were unremarkable. The scope was withdrawn to the stomach and retroflexed. No hiatal hernia noted. There was no increased fluid, food or secretions in the upper gastrointestinal tract. There was very minimal, nonspecific, patchy antral erythema. Biopsies were obtained for Helicobacter pylori. No erosions or ulcers. The scope was withdrawn to the esophagus. The Z-line and gastroesophageal junction were located at about 38 cm. No Ochoa?s or esophagitis. The patient tolerated the procedure very well. Significant findings: Mild antral antritis No ulcers or erosions No obvious source of bleeding Colonoscopy Our attention was then turned to colonoscopy. The patient was placed in left lateral recumbent position. Examination began with a thorough inspection of the perianal area. There was no evidence of fissures, fistulae, external hemorrhoids or cutaneous malignancy. The colonoscope was then placed into the rectum and the lumen was insufflated with carbon dioxide. The scope was carefully advanced forward. Ultimately the cecum was intubated and confirmed by identification of the ileocecal valve, the appendiceal orifice and the confluence of the taenia. The scope was then slowly withdrawn examining the colon thoroughly in all directions. In the rectum, retroflexion of the scope was performed for inspection of the distal rectum and anal canal. Significant findings: Inumerous AVMs throughout colon, concentrated in rectosigmoid area, dilated rectal veins extending to rectosigmoid junction Small, 2mm, benign-appearing sessile polyp in rectum 3-5cm from anal verge, removed by cold snare, retrieved, sent to pathology No diverticulosis No mass No active bleeding The patient was then transferred to the recovery area in good condition. There were no apparent complications. Scope withdrawal time: 13 Findings: polyp (rectal) and other findings (mild antral gastritis, multiple AVMs throughout colon, concentrated in rectosigmoid) Specimen(s): other (Antral bxs for hpylori, rectal polyp) Complications: none Impression: Mild antral gastritis Multiple AVMs throughout colon, concentrated in rectosigmoid Small, 2mm, sessile polyp in rectum, biopsied and retrieved for pathology No active bleeding Post-procedure Recommendations: Colonscopy in 10 years Plan for aftercare: Regular diet Possible d/c home later today Follow up: as needed Disposition: PACU
[2025-05-27] MEDS: PANTOPRAZOLE DR 40 MG TABLET PO (10:30)
[2025-05-27] MEDS: SODIUM FERRIC GLUCONAT/SUCROSE 125 MG in SODIUM CHLORIDE 0.9% 100 ML 110 MG IV (10:30)
--- NOTE | 2025-05-27 11:04 | PM.DS.1 ---
History of Present Illness History of Present Illness Date Patient Seen: 05/27/25 Time Patient Seen: 11:05 Chief complaint: Anemia Discharge Providers Provider Date of admission: 05/26/25 01:05 Discharge Date: 05/27/25 Discharge provider: Howard Raya MD Summary Hospital Course Hospital Course: Symptomatic anemia. No clear history of GI bleeding or excessive menstrual bleeding or other obvious cause of anemia. CT scan abdomen and pelvis shows no acute finding. Patient did have 1 unit of blood transfusion with improvement in hemoglobin to 8.2, which has remained stable. Mild antral gastritis, unlikely to be causing this anemia noted. Multiple arteriovenous malformations in the colon found, more suspicious for causing this anemia but still confusing as she has not witnessed any blood in her stools. Regardless she should be referred to Hematology for potential bone marrow biopsy. The iron level came back at 21 so she will receive IV iron today and will be sent home on vitamin-C/iron orally. The vitamin B12 level is normal at 771. The elevated AST is likely related to fatty liver? 05/26 AST 73, ALT 47. She already has an appointment with her new doctor tomorrow so all of this can be followed quite closely and hematology referral could be coordinated if agreed. Asthma. No symptoms. Findings on colonoscopy: Inumerous AVMs throughout colon, concentrated in rectosigmoid area, dilated rectal veins extending to rectosigmoid junction Small, 2mm, benign-appearing sessile polyp in rectum 3-5cm from anal verge, removed by cold snare, retrieved, sent to pathology Status at Discharge Cognitive/behavioral status at discharge: oriented Functional status at discharge: independent ambulation Overall status at discharge: patient is back to baseline Exam Vital Signs (past 8 hours): - 05/27/25 04:00 05/27/25 07:00 05/27/25 08:00 Temperature 98.9 F Pulse Rate 91 H 109 H Respiratory Rate 16 20 Blood Pressure 109/62 125/82 Pulse Oximetry 93 97 Oxygen Delivery Method Room Air Room Air Oxygen Flow Rate 0 05/27/25 09:59 05/27/25 10:04 05/27/25 10:09 Temperature 97.1 F L Pulse Rate 91 H 95 H 90 Respiratory Rate 12 11 L 12 Blood Pressure 93/64 97/66 101/69 Pulse Oximetry 96 93 95 Oxygen Delivery Method Room Air Room Air Room Air Oxygen Flow Rate 05/27/25 10:14 05/27/25 10:58 Temperature 97.5 F L Pulse Rate 71 96 H Respiratory Rate 16 19 Blood Pressure 95/59 L 117/56 L Pulse Oximetry 98 Oxygen Delivery Method Oxygen Flow Rate 100 Oxygen Delivery Method Room Air Oxygen Flow Rate 100 Narrative Exam Narrative: Alert and oriented x3. No apparent distress. She is sitting up in bed eating a turkey sandwich. Heart is regular rate and rhythm without murmur Abdomen is obese, nontender. Lungs are clear to auscultation bilaterally Extremities have no ankle edema Objective Labs 05/27/25 04:30 05/26/25 07:25 Labs: Laboratory Results - last 24 hr 05/27/25 04:30 Hgb 8.2 L Hct 26.7 L Iron 21 L TIBC 316 % Saturation 7 L Transferrin 234 Vitamin B12 771 [facility] Medical History (Updated 05/26/25 @ 07:09 by Wilbur Morris MD) Asthma Surgical History History of Hx of tubal ligation Family History Mother Age: 64 Diabetes mellitus Sister Age: 44 Abnormal thyroid function test Social History household members: spouse and children Smoking Status: Never smoker Discharge Plan Discharge Plan Patient Disposition: Home Provider Discharge Comment: Follow up with your new PCP at the [facility] tomorrow. A referral to Hematology is recommended. Discharge orders & Medications Prescriptions: New ferrous sulfate 325 mg (65 mg iron) tablet 325 mg PO DAILY Qty: 30 0RF ascorbic acid (vitamin C) 500 mg capsule 500 mg PO DAILY Qty: 30 0RF Diet/Activity/Treatments Diet: Regular Visit Report/Discharge Packet Instructions: DI for Colon Polypectomy, DI for Gastritis Stand Alone Forms: Patient Portal/API, Stroke Signs & Symptoms Discharge Data Attending Provider: Marcel Barrow Admit Date/Time: 05/26/25 01:05
--- NOTE | 2025-05-27 12:58 | PC.NURSE ---
Discharge instructions given to pt. IV removed, telemetry removed. All belongings sent home with pt. Pt wheeled downstairs by hospital staff.
== END 2025-05-27 13:00 | disposition home or self-care (01) ==
LOC: ED 18:34 → AC 05-26 01:06 → ICU 05-26 01:14
PROVIDERS: Emergency Medicine; Family Medicine; Surgery; Admitting Provider Internal Medicine; Emergency Provider Emergency Medicine; Visit Provider Internal Medicine
PROC: 0DJ08ZZ Inspection of Upper Intestinal Tract, Via Natural or Artificial Opening Endoscopic (ICD-10-PCS; CPT 45385; principal; 2025-05-27 09:00)
PROC: 0DJD8ZZ Inspection of Lower Intestinal Tract, Via Natural or Artificial Opening Endoscopic (ICD-10-PCS; CPT 45378; 2025-05-27 09:00)
DX: K55.20 Angiodysplasia of colon without hemorrhage (principal); D64.9 Anemia, unspecified; K29.50 Unspecified chronic gastritis without bleeding; K62.1 Rectal polyp; R10.31 Right lower quadrant pain; J45.909 Unspecified asthma, uncomplicated; R00.0 Tachycardia, unspecified; N39.0 Urinary tract infection, site not specified; I95.9 Hypotension, unspecified
CPT/HCPCS: 45385; 43239; 36415; 36430; 71045; 74174; 80053; 81001; 81003; 81015; 82550; 82607; 83540; 83550; 83605; 83690; 83735; 83880; 84145; 84484; 85014; 85018; 85025; 85610; 85730; 86850; 86900; 86901; 87040; 87086; 87797; 93005; 93010; 96361; 96365; 96367; 96375; 99284; 99291; G0378; P9016; J0696; J2470; J2704; J2916; Q9967

== ENCOUNTER → 2025-05-29 09:21 | Outpatient (CLI) | payer OTHER, SELFPAY ==
[2025-05-26 01:48] VITALS: BMI 43.7
[2025-05-29 10:33] LABS: Hematocrit 28.3 % (36-46); Hemoglobin 8.9 g/dL (12.0-16.0); Mean Corpuscular HGB Conc 31.3 % (30-36); Mean Corpuscular Hemoglobin 19.7 PG (26-34); Mean Corpuscular Volume 63.0 fL (80-100); Platelet Count 267 X10^3/uL (150-400)
[2025-05-29 10:37] LABS: Add Manual Diff / Slide Review YES
[2025-05-29 11:25] LABS: Atypical Lymphocytes Percent 12.0 %; Eosinophils Percent Manual 6.0 % (2-4); Lymphocytes Percent Manual 35.0 % (25-45); Monocytes Percent Manual 7.0 % (2-11); Neutrophils Absolute Manual 3240 /uL (3000-5900); Segmented Neutrophils Percent 40.0 % (38-70); Total Cells Counted 100
[2025-05-29 11:26] LABS: Anisocytosis 2+; Hypochromasia 1+; Macrocytosis 1+; Poikilocytosis 1+
== END ==
PROVIDERS: PCP Family Medicine; Referring Provider Family Medicine; Visit Provider Family Medicine
DX: R79.89 Other specified abnormal findings of blood chemistry (principal); E61.1 Iron deficiency; D64.9 Anemia, unspecified
CPT/HCPCS: 36415; 85007; 85025

== ENCOUNTER → 2025-06-18 09:08 | Outpatient (CLI) | payer OTHER, SELFPAY ==
[2025-05-26 01:48] VITALS: BMI 43.7
--- NOTE | 2025-06-18 09:09 | DI.US.S_ITS ---
PROCEDURE: US PELVIC COMPLETE INDICATIONS: ANEMIA/ELEVATED LFTS ACUTE PELVIC INFLAMMATION TECHNIQUE: Real-time scanning was performed of the pelvic organs, with image documentation. Additional endovaginal scanning was necessary due to incomplete visualization of the adnexal and endometrial structures by transabdominal scanning. COMPARISON: [facility], US, PELVIC COMPLETE, 09/15/2017, 9:03. FINDINGS: Uterus: Uterus is anteverted and normal in size at 12.1 x 6.0 x 6.5 cm. The myometrium is heterogeneous, with posterior attenuation. The endometrium measures 15 mm combined thickness. Possible endometrial age polyp measuring 1.4 x 0.6 x 1.5 centimeter. Ovaries: The right ovary measures 3.1 x 2.1 x 3.0 cm, with a calculated ovarian volume of 10.3 cc. The left ovary measures 2.9 x 2.7 x 2 point cm, with a calculated ovarian volume of 11.1 cc. The ovaries have a normal sonographic appearance. Less than 12 follicles can be seen in each ovary. No adnexal masses are seen. Other: No pathologic free abdominal or pelvic fluid. IMPRESSION: Diffusely heterogeneous endometrium, which may indicate diffuse adenomyosis in the correct clinical setting. Possible endometrial polyp measuring 1.4 centimeter, although this could be artifact as the endometrium is poorly defined due to posterior attenuation of the uterus. This could be evaluated with MRI if necessary (gynecologic mass protocol), versus sonographic hysterosalpingogram. We strive to produce accurate, complete, and clear reports of imaging services. To assist us in improving patient care, this report was composed using standard report templates and voice recognition software. Therefore, it may contain abnormal punctuation, insertions and/or omissions. Occasional wrong-word or sound-alike substitutions may occur. Though we review the report and make efforts to correct it, we do recommend that the report be read carefully in proper context to recognize any text inaccuracies. Dictated by: Al Boyd M.D. on 06/18/2025 at 12:57 Approved by: Al Boyd M.D. on 06/18/2025 at 13:01
== END ==
PROVIDERS: PCP Family Medicine; Referring Provider Family Medicine; Visit Provider Family Medicine
DX: N73.0 Acute parametritis and pelvic cellulitis (principal); E61.1 Iron deficiency; D64.9 Anemia, unspecified; R79.89 Other specified abnormal findings of blood chemistry; K76.0 Fatty (change of) liver, not elsewhere classified; K80.20 Calculus of gallbladder without cholecystitis without obstruction
CPT/HCPCS: 76705; 76830; 76856

== ENCOUNTER → 2025-08-19 15:06 | Outpatient (CLI) | payer OTHER, SELFPAY ==
[2025-05-26 01:48] VITALS: BMI 43.7
== END ==
PROVIDERS: PCP Family Medicine; Visit Provider Chiropractor
DX: N94.9 Unspecified condition associated with female genital organs and menstrual cycle (principal); R30.0 Dysuria
CPT/HCPCS: 87086; 87210

== ENCOUNTER → 2025-08-21 15:21 | Outpatient (CLI) | payer OTHER, SELFPAY ==
[2025-05-26 01:48] VITALS: BMI 43.7
== END ==
PROVIDERS: PCP Family Medicine; Referring Provider Family Medicine; Visit Provider Family Medicine
DX: R30.0 Dysuria (principal)
CPT/HCPCS: 87086

== ENCOUNTER → 2025-08-28 09:37 | Outpatient (CLI) | payer OTHER, SELFPAY ==
[2025-05-26 01:48] VITALS: BMI 43.7
[2025-08-28 10:58] LABS: Add Manual Diff / Slide Review NO; Hematocrit 34.6 % (36-46); Hemoglobin 11.4 g/dL (12.0-16.0); Lymphocytes Absolute Auto 2600 /uL (1100-4500); Mean Corpuscular HGB Conc 33.0 % (30-36); Mean Corpuscular Hemoglobin 26.5 PG (26-34); Mean Corpuscular Volume 80.4 fL (80-100); Platelet Count 332 X10^3/uL (150-400)
[2025-08-28 11:14] LABS: Alanine Aminotransferase 23 IU/L (<35); Albumin 4.4 g/dL (3.5-5.0); Albumin Globulin Ratio 1.2 (1.0-2.8); Alkaline Phosphatase 67 U/L (38-126); Blood Urea Nitrogen 22 mg/dL (7-17); Calcium 9.0 mg/dL (8.4-10.2); Carbon Dioxide 26 mmol/L (22-32); Chloride 102 mmol/L (98-107); Cholesterol 128 mg/dL (140-199); Estimated Glomerular Filt Rate > 60 mL/min (>60); Globulin 3.6 g/dL (1.7-4.1); Glucose 90 mg/dL (70-99); HDL Cholesterol 30 mg/dL (40-60); HEMOLYSIS < 15 (0-50); Potassium 4.6 mmol/L (3.4-5.1); Sodium 137 mmol/L (137-145); Total Protein 8.0 g/dL (6.3-8.2); Triglycerides 81 mg/dL (35-150)
[2025-08-28 11:18] LABS: Hemoglobin A1C% w Est Avg Glu 5.2 % (4.0-6.0)
[2025-08-28 11:20] LABS: Iron 40 ug/dL (37-170)
[2025-08-28 11:50] LABS: Ferritin 8 ng/mL (6-137)
== END ==
PROVIDERS: PCP Family Medicine; Referring Provider Family Medicine; Visit Provider Family Medicine
DX: R35.0 Frequency of micturition (principal); D64.9 Anemia, unspecified; Z83.3 Family history of diabetes mellitus
CPT/HCPCS: 36415; 80053; 80061; 82728; 83036; 83540; 85025